=== PATIENT | female | born 1960 | race Caucasian/White ===

== ENCOUNTER 2020-08-09 10:35 | Outpatient (REF) | payer OTHER, SELFPAY | END 2020-08-09 10:36 | disposition home or self-care (01) | LOC: HO.LAB 10:35 | PROVIDERS: PCP Internal Medicine; Visit Provider Internal Medicine | DX: Z20.828 Contact with and (suspected) exposure to other viral communicable diseases (principal) | CPT/HCPCS: C9803; U0003 ==

== ENCOUNTER 2021-06-12 07:54 | Outpatient (REF) | payer OTHER, SELFPAY ==
--- NOTE | ~2021-06-12 | MM_ITS ---
EXAMINATION: MM SCREENING DIGITAL BREAST TOMOSYNTHESIS, BILATERAL CLINICAL INFORMATION: Screening. Asymptomatic. The lifetime risk of breast cancer based on the Tyrer-Cuzick Model is 13.8%. COMPARISON: Mammography: December 16, 2018 and studies dating back to August 12, 2012 TECHNIQUE: Digital breast tomosynthesis is performed in both the craniocaudal and mediolateral oblique views along with computer-aided detection (CAD). Synthesized 2D images are generated from the tomosynthesis. FINDINGS: The breasts are almost entirely fatty (ACR BI-RADS breast composition Category a). There are no significant masses, abnormal calcifications, or other abnormalities. MM/MM tomosynthesis screening BI IMPRESSION: There are no significant changes from prior study. ASSESSMENT: BI-RADS 1: Negative RECOMMENDATION: Routine annual mammography screening. This patient's information was entered into a reminder system with a target due date for their next mammogram.
== END 2021-06-12 07:55 | disposition home or self-care (01) ==
LOC: HO.MAMMO 07:54
PROVIDERS: PCP Internal Medicine; Visit Provider Internal Medicine
DX: Z12.31 Encounter for screening mammogram for malignant neoplasm of breast (principal)
CPT/HCPCS: 77063; 77067

== ENCOUNTER 2021-06-22 09:16 | Outpatient (REF) | payer OTHER, SELFPAY ==
--- NOTE | ~2021-06-22 | XR_ITS ---
EXAMINATION: XR PELVIS CLINICAL INFORMATION: Pain. COMPARISON: None. TECHNIQUE: AP view of the pelvis. FINDINGS: No acute fracture or dislocation. Mild right hip joint space narrowing with tiny marginal osteophytes. No osseous erosion. Dystrophic calcification adjacent to the left femoral neck measuring up to 2.5 cm. XR/XR pelvis 1-2V IMPRESSION: No acute fracture or dislocation. Minimal right hip arthrosis. Dystrophic calcification adjacent to the left hip joint.
== END 2021-06-22 09:17 | disposition home or self-care (01) ==
LOC: HO.HOSX 09:16
PROVIDERS: Visit Provider Orthopaedic Surgery
DX: M70.61 Trochanteric bursitis, right hip (principal); M70.62 Trochanteric bursitis, left hip
CPT/HCPCS: 20610; 72170; J1100

== ENCOUNTER 2021-07-13 10:38 | Emergency (ER) | payer OTHER, SELFPAY ==
[2021-07-13 10:57] VITALS: BP 155/95; PULSE 74; RESP 18; TEMP 36.7; O2SAT 97; BMI 48.1
[2021-07-13 11:15] LABS: Glucose, Whole Blood 348 mg/dL (60-115)
--- NOTE | 2021-07-13 12:10 | ED.GENADULT ---
HPI - General Adult General Chief complaint: General Medical Stated complaint: hbs, nausea, vomiting Time Seen by Provider: 07/13/21 11:09 Source: patient Mode of arrival: ambulatory Limitations: no limitations History of Present Illness HPI narrative: patient with vomiting and diaphoresis. patient with visual changes. Recent dry mouth. patient found to have a FS 328. Onset (ago): day(s) Radiation: non-radiation Severity: mild Relieving factors: none Exacerbating factors: none Associated symptoms: weakness Related Data Home Medications Medication Instructions Recorded Confirmed acetaminophen 325 mg tablet 650 mg PO Q4H PRN 07/13/21 07/13/21 diclofenac sodium 75 mg 1 tab PO BID 07/13/21 07/13/21 tablet,delayed release furosemide 20 mg tablet 20 mg PO DAILY PRN 07/13/21 07/13/21 venlafaxine 225 mg tablet,extended 1 tab PO DAILY 07/13/21 07/13/21 release 24 hr zolpidem 5 mg tablet 5 mg PO BEDTIME PRN 07/13/21 07/13/21 Previous Rx's Medication Instructions Recorded metformin 500 mg tablet 500 mg PO BID #20 tab 07/13/21 Allergies Allergy/AdvReac Type Severity Reaction Status Date / Time Sulfa (Sulfonamide Allergy Unknown HIVES Verified 07/13/21 10:56 Antibiotics) Review of Systems Constitutional: Constitutional: Reports no additional constitutional complaints Eyes: Eyes: Reports no additional eye complaints ENT: Denies dizziness Cardiovascular: Cardiovascular: Reports no additional cardiovascular complaints Respiratory: Respiratory: Reports as per HPI Gastrointestinal: Gastrointestinal: Reports no additional gastrointestinal complaints Genitourinary: Genitourinary: Reports no additional female genitourinary complaints Musculoskeletal: Musculoskeletal: Reports no additional musculoskeletal complaints Integumentary/Breasts: Skin/Breast: Denies rash Neurologic: Reports system reviewed and no additional complaints, except as documented, Denies dizziness and Denies Sensory deficit (Neuro) Psychiatric: Psychiatric: Denies anxiety PMFSH Past Medical History Medical History Depression GERD (gastroesophageal reflux disease) HTN (hypertension) Obesity Obstructive sleep apnea Surgical History H/O left knee surgery History of cholecystectomy Social History Social History Alcohol intake: unknown Patient Tobacco Use Status: Never used Tobacco Use of substances other than those prescribed or required for medical reasons: No Advance Directives: No Advance Directives Information Provided: Yes Patient : No 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 Vital Signs: Vital Signs: Last Vital Signs Temp 98.0 F 07/13/21 10:57 Pulse 72 07/13/21 14:11 Resp 18 07/13/21 14:11 BP 146/85 H 07/13/21 14:11 Pulse Ox 97 07/13/21 14:11 Body Mass Index 48.1 Const: General: healthy appearing Nutritional Appearance: obese Orientation/consciousness: oriented to person and patient oriented x3 Limitations: no limitations HENMT: Head: Yes normal to inspection Ears: external ears normal General nose exam: Normal external nose present Mouth: Normal oral and palatal mucosa present and oropharynx normal Throat: Yes posterior oropharynx normal Eyes: General: appearance normal, both eyes and all related structures Neck: Other: supple Neck: Yes normal visual inspection Chest: Chest palpation & inspection: normal inspection of the chest Resp: Auscultation: clear to auscultation bilaterally Cardio: Jugular venous distension: no JVD Rate: regular rate Rhythm: regular rhythm Heart sounds: S1 normal heart sound present and S2 normal heart sound present GI: Inspection: Yes normal to inspection Palpation (GI): Soft to palpation, nontender and No hepatosplenomegaly present Auscultation: normal bowel sounds : General: Yes no CVA tenderness Back/Spine/Pelvis: Back: no CVA tenderness Skin: General skin exam: no rashes or lesions noted Neuro: General: oriented to person and patient oriented x3 Cranial nerves: Yes CN's II-XII intact bilaterally Motor exam (neuro): 5/5 motor strength present throughout Sensory Exam: No Sensory deficit (Neuro) Extrem: General: Yes normal to inspection Psych: Appearance: grossly normal Course Reevaluation(s) Reevaluation #1: Discussed with Dr. Jaden finney dc on glucophage twice a day. patient is otherwise stable Time: 15:16 Medical Decision Making Lab Data Result diagrams: 07/13/21 12:37 07/13/21 12:58 Labs: Lab Results 07/13/21 07/13/21 07/13/21 Range/Units 11:10 12:37 12:37 WBC 4.5 L (4.8-10.8) X10*3/uL RBC 5.32 (4.20-5.50) X10*6/uL Hgb 15.0 (12.0-16.0) g/dl Hct 45.2 (37-47) % MCV 85.0 (80-98) fL MCH 28.2 (27.0-33.0) pg MCHC 33.2 (31.0-35.0) g/dl RDW 13.2 (11.0-16.0) % Plt Count 253 (160-400) X10*3/uL MPV 9.0 L (9.4-12.3) fL Immature Gran % (Auto) 0.2 (0.0-0.4) % Neut % (Auto) 58.3 (45-73) % Lymph % (Auto) 34.0 (20-40) % [place] % (Auto) 5.8 (2-11) % Eos % (Auto) 1.3 (0-4) % Baso % (Auto) 0.4 (0-2) % Lymph # (Auto) 1.5 (1.2-4.9) X10*3/uL [place] # (Auto) 0.3 (0.1-1.2) X10*3/uL Eos # (Auto) 0.1 (0.0-0.4) X10*3/uL Baso # (Auto) 0.0 (0.0-0.2) X10*3/uL Abs Immat Gran (auto) 0.01 (0.00-0.03) X10*3/uL Absolute Neuts (auto) 2.6 (2.0-8.3) X10*3/uL Absolute Nucleated RBC 0.000 (0.0-0.012) X10*3/uL Nucleated RBC % (auto) 0.0 (0.0-0.2) /100WBC Sodium (135-145) mmol/L Potassium (3.3-5.1) mmol/L Chloride (96-108) mmol/L Carbon Dioxide (22-29) mmol/L Anion Gap (12-20) BUN (9-16) mg/dL Creatinine (0.5-1.4) mg/dL Estim Creat Clear Calc Estimated GFR POC Glucose 348 H (60-115) mg/dL Random Glucose (60-115) mg/dL Calcium (8.4-10.2) mg/dL Total Bilirubin (0.0-1.0) mg/dL Direct Bilirubin (0.0-0.5) mg/dL AST (5-31) U/L ALT (0-31) U/L Alkaline Phosphatase (39-117) U/L Total Protein (6.5-8.0) g/dL Albumin (3.5-5.0) g/dL Urine Color YELLOW Urine Appearance CLEAR Urine pH 6.0 (5.0-8.0) Ur Specific [place] 1.025 (1.005-1.025) Urine Protein NEG (NEG-TRACE) MG/DL Urine Glucose (UA) >=1000 H (NEG) MG/DL Urine Ketones 40 (NEG) MG/DL Urine Blood NEG (NEG) Urine Nitrite NEG (NEG) Ur Leukocyte Esterase NEG (NEG) Urine RBC 0 (0) /HPF Urine WBC 0-2 (0-4) /HPF Ur Squamous Epith Cells TRACE /LPF Urine Bacteria TRACE /LPF 07/13/21 07/13/21 Range/Units 12:58 14:08 WBC (4.8-10.8) X10*3/uL RBC (4.20-5.50) X10*6/uL Hgb (12.0-16.0) g/dl Hct (37-47) % MCV (80-98) fL MCH (27.0-33.0) pg MCHC (31.0-35.0) g/dl RDW (11.0-16.0) % Plt Count (160-400) X10*3/uL MPV (9.4-12.3) fL Immature Gran % (Auto) (0.0-0.4) % Neut % (Auto) (45-73) % Lymph % (Auto) (20-40) % [place] % (Auto) (2-11) % Eos % (Auto) (0-4) % Baso % (Auto) (0-2) % Lymph # (Auto) (1.2-4.9) X10*3/uL [place] # (Auto) (0.1-1.2) X10*3/uL Eos # (Auto) (0.0-0.4) X10*3/uL Baso # (Auto) (0.0-0.2) X10*3/uL Abs Immat Gran (auto) (0.00-0.03) X10*3/uL Absolute Neuts (auto) (2.0-8.3) X10*3/uL Absolute Nucleated RBC (0.0-0.012) X10*3/uL Nucleated RBC % (auto) (0.0-0.2) /100WBC Sodium 140 (135-145) mmol/L Potassium 4.1 (3.3-5.1) mmol/L Chloride 104 (96-108) mmol/L Carbon Dioxide 27 (22-29) mmol/L Anion Gap 13 (12-20) BUN 6 L (9-16) mg/dL Creatinine 0.83 (0.5-1.4) mg/dL Estim Creat Clear Calc 97.6 Estimated GFR > 60 POC Glucose 251 H (60-115) mg/dL Random Glucose 352 H* (60-115) mg/dL Calcium 9.4 (8.4-10.2) mg/dL Total Bilirubin 0.8 (0.0-1.0) mg/dL Direct Bilirubin 0.3 (0.0-0.5) mg/dL AST 46 H (5-31) U/L ALT 85 H (0-31) U/L Alkaline Phosphatase 143 H (39-117) U/L Total Protein 6.2 L (6.5-8.0) g/dL Albumin 4.1 (3.5-5.0) g/dL Urine Color Urine Appearance Urine pH (5.0-8.0) Ur Specific [place] (1.005-1.025) Urine Protein (NEG-TRACE) MG/DL Urine Glucose (UA) (NEG) MG/DL Urine Ketones (NEG) MG/DL Urine Blood (NEG) Urine Nitrite (NEG) Ur Leukocyte Esterase (NEG) Urine RBC (0) /HPF Urine WBC (0-4) /HPF Ur Squamous Epith Cells /LPF Urine Bacteria /LPF Discharge Plan Discharge Clinical Impression: Acute hyperglycemia Patient Disposition: Home, Self-Care Instructions: Diabetic Hyperglycemia (ED) Prescriptions: New metformin 500 mg tablet 500 mg PO BID Qty: 20 RF: 0 No Action diclofenac sodium 75 mg tablet,delayed release (DR/EC) 1 tab PO BID RF: 0 furosemide 20 mg Tablet 20 mg PO DAILY PRN (Reason: Edema) RF: 0 venlafaxine 225 mg tablet extended release 24hr 1 tab PO DAILY RF: 0 acetaminophen 325 mg Tablet 650 mg PO Q4H PRN (Reason: Pain) RF: 0 zolpidem 5 mg tablet 5 mg PO BEDTIME PRN (Reason: Insomnia) RF: 0 Referrals: Kvng Colón MD, DO [Primary Care Provider] - 1 week
[2021-07-13 12:40] VITALS: BP 139/75; PULSE 71; RESP 18; O2SAT 97
[2021-07-13 12:42] LABS: MANUAL DIFF FLAG NO
[2021-07-13 12:46] LABS: Appearance Urine CLEAR; Color Urine YELLOW; Glucose Urine UA >=1000 MG/DL (NEG); Leukocyte Esterase Urine NEG (NEG); Nitrite Urine NEG (NEG); Specific Gravity - Urine 1.025 (1.005-1.025); Urine Blood NEG (NEG); Urine Ketones 40 MG/DL (NEG); Urine Protein NEG (NEG-TRACE)
[2021-07-13 12:49] LABS: Basophils Percent Auto 0.4 % (0-2); Eosinophils Absolute Auto 0.1 X10*3/uL (0.0-0.4); Eosinophils Percent Auto 1.3 % (0-4); Hematocrit 45.2 % (37-47); Imm Gran Abs Auto 0.01 X10*3/uL (0.00-0.03); Imm Gran Pct Auto 0.2 % (0.0-0.4); Lymphocytes Absolute Auto 1.5 X10*3/uL (1.2-4.9); Mean Corpuscular HGB Conc 33.2 g/dl (31.0-35.0); Mean Corpuscular Hemoglobin 28.2 pg (27.0-33.0); Monocytes Absolute Auto 0.3 X10*3/uL (0.1-1.2); Monocytes Percent Auto 5.8 % (2-11); Neutrophils Absolute Auto 2.6 X10*3/uL (2.0-8.3); Neutrophils Percent Auto 58.3 % (45-73); Platelet Count 253 X10*3/uL (160-400); Red Blood Count 5.32 X10*6/uL (4.20-5.50); Red Cell Distribution Width 13.2 % (11.0-16.0); White Blood Count 4.5 X10*3/uL (4.8-10.8)
[2021-07-13] MEDS: Insulin Lispro 100 UNIT/ML 3 ML VIAL 6 UNIT SUBCUT (12:52)
[2021-07-13] MEDS: 0.9 % Sodium Chloride 1,000 ML 999 ML IVCONT ×2 (12:52→14:36)
[2021-07-13 13:04] LABS: Squamous Epithelial Cell Urine TRACE /LPF
[2021-07-13 13:05] LABS: Bacteria Urine TRACE /LPF; RBC Urine 0 /HPF (0); WBC Urine 0-2 /HPF (0-4)
--- NOTE | 2021-07-13 13:19 | PHA.MEDREC ---
Pharmacy Consult ? Medication Reconciliation Pharmacy has completed the medication reconciliation. Patient reports using Lasix as needed however there is no claim history for Lasix. Prescription may be old. Susan Lama, OtiliaD
[2021-07-13 13:29] LABS: Alanine Aminotransferase 85 U/L (0-31); Albumin Level 4.1 g/dL (3.5-5.0); Alkaline Phosphatase 143 U/L (39-117); Anion Gap 13 (12-20); Aspartate Amino Transferase 46 U/L (5-31); Bilirubin Direct 0.3 mg/dL (0.0-0.5); Bilirubin Total 0.8 mg/dL (0.0-1.0); Blood Urea Nitrogen 6 mg/dL (9-16); Calcium 9.4 mg/dL (8.4-10.2); Carbon Dioxide 27 mmol/L (22-29); Chloride 104 mmol/L (96-108); Creatinine Clr Calc Pharmacy 97.6; Estimated Glomerular Filt Rate > 60; Glucose Random 352 mg/dL (60-115); Potassium 4.1 mmol/L (3.3-5.1); Sodium 140 mmol/L (135-145); Total Protein 6.2 g/dL (6.5-8.0)
[2021-07-13 14:11] VITALS: BP 146/85; PULSE 72; RESP 18; O2SAT 97
[2021-07-13 14:15] LABS: Glucose, Whole Blood 251 mg/dL (60-115)
[2021-07-13 15:38] VITALS: BP 159/87; PULSE 70; RESP 18; TEMP 36.7; O2SAT 96
== END 2021-07-13 16:03 | disposition home or self-care (01) ==
PROVIDERS: Emergency Provider Emergency Medicine; PCP Internal Medicine
DX: E11.65 Type 2 diabetes mellitus with hyperglycemia (principal); Z79.899 Other long term (current) drug therapy; Z79.84 Long term (current) use of oral hypoglycemic drugs
CPT/HCPCS: 36415; 80048; 80076; 81001; 82947; 85025; 96360; 99284

== ENCOUNTER 2021-08-21 07:41 | Outpatient (REF) | payer OTHER, SELFPAY ==
[2021-08-21 07:50] LABS: MANUAL DIFF FLAG NO
[2021-08-21 07:57] LABS: Basophils Percent Auto 0.2 % (0-2); Eosinophils Absolute Auto 0.1 X10*3/uL (0.0-0.4); Eosinophils Percent Auto 2.4 % (0-4); Hemoglobin 14.2 g/dl (12.0-16.0); Lymphocytes Absolute Auto 1.5 X10*3/uL (1.2-4.9); Lymphocytes Percent Auto 35.8 % (20-40); Mean Corpuscular HGB Conc 32.3 g/dl (31.0-35.0); Mean Corpuscular Volume 86.6 fL (80.0-98.0); Monocytes Absolute Auto 0.3 X10*3/uL (0.1-1.2); Monocytes Percent Auto 7.9 % (2-11); Neutrophils Absolute Auto 2.3 x10*3/uL (2.0-8.3); Neutrophils Percent Auto 53.7 % (45-73); Platelet Count 289 X10*3/uL (160-400); Red Blood Count 5.08 X10*6/uL (4.20-5.50); Red Cell Distribution Width 13.9 % (11.0-16.0); White Blood Count 4.2 X10*3/uL (4.8-10.8)
[2021-08-21 08:41] LABS: Appearance Urine CLOUDY; Color Urine YELLOW; Glucose Urine UA NEG (NEG); Leukocyte Esterase Urine 2+ (NEG); Nitrite Urine NEG (NEG); PH 5.5 (5.0-8.0); Specific Gravity - Urine >= 1.030 (1.005-1.025); Urine Blood NEG (NEG); Urine Ketones 5 MG/DL (NEG); Urine Protein TRACE MG/DL (NEG-TRACE)
[2021-08-21 08:51] LABS: Bacteria Urine 2+ /LPF; RBC Urine 0 /HPF (0)
[2021-08-21 09:06] LABS: Alanine Aminotransferase 73 U/L (0-31); Albumin Level 4.2 g/dL (3.5-5.0); Alkaline Phosphatase 109 U/L (39-117); Anion Gap 13 (12-20); Aspartate Amino Transferase 34 U/L (5-31); Bilirubin Total 0.7 mg/dL (0.0-1.0); Blood Urea Nitrogen 11 mg/dL (9-16); Calcium 9.4 mg/dL (8.4-10.2); Carbon Dioxide 24 mmol/L (22-29); Chloride 108 mmol/L (96-108); Cholesterol 149 mg/dL; Estimated Glomerular Filt Rate > 60; Glucose Fasting 143 mg/dL (60-99); HDL Cholesterol 36 mg/dL; LDL Cholesterol Calculated 94 mg/dl; Potassium 4.1 mmol/L (3.3-5.1); Sodium 141 mmol/L (135-145); Total Protein 6.3 g/dL (6.5-8.0); Triglycerides 95 mg/dL
[2021-08-21 09:12] LABS: Microalbum/Creatinine Ratio Ur 10.9 ug/mg cr
[2021-08-21 09:17] LABS: Estimated Average Glucose 223 mg/dL; Hemoglobin A1c % 9.4 %
== END 2021-08-21 07:42 | disposition home or self-care (01) ==
LOC: HO.LAB 07:41
PROVIDERS: PCP Internal Medicine; Visit Provider Internal Medicine
DX: E11.9 Type 2 diabetes mellitus without complications (principal); I10 Essential (primary) hypertension
CPT/HCPCS: 36415; 80053; 80061; 81001; 81003; 82043; 83036; 85025

== ENCOUNTER 2021-10-19 13:31 | Emergency (ER) | payer OTHER, SELFPAY ==
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
[2021-10-19 13:39] VITALS: BP 140/70; BP 171/90; PULSE 90; PULSE 92; RESP 18; TEMP 36.8; O2SAT 95; O2SAT 98; BMI 41.4
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
[2021-10-19 14:31] VITALS: BP 137/81; PULSE 82; RESP 14; TEMP 37.1; O2SAT 95
[2021-10-19] MEDS: Ketorolac Tromethamine 60 MG/2 ML VIAL IM (15:59)
[2021-10-19] MEDS: Cyclobenzaprine HCl 10 MG TABLET PO (15:59)
== END 2021-10-19 17:21 | disposition home or self-care (01) ==
PROVIDERS: Emergency Provider Emergency Medicine; PCP Internal Medicine
DX: S39.012A Strain of muscle, fascia and tendon of lower back, initial encounter (principal); S13.4XXA Sprain of ligaments of cervical spine, initial encounter; M54.2 Cervicalgia; M54.6 Pain in thoracic spine; V73.5XXA Driver of bus injured in collision with car, pick-up truck or van in traffic accident, initial encounter; Y93.9 Activity, unspecified; Y92.410 Unspecified street and highway as the place of occurrence of the external cause; Y99.9 Unspecified external cause status; Z79.899 Other long term (current) drug therapy
CPT/HCPCS: 72070; 72100; 72125; 96372; 99284; J1885

== ENCOUNTER 2021-10-22 09:23 | Outpatient (REF) | payer OTHER, SELFPAY ==
[2021-10-22 10:58] LABS: Alanine Aminotransferase 43 U/L (0-31); Albumin Level 4.1 g/dL (3.5-5.0); Alkaline Phosphatase 105 U/L (39-117); Anion Gap 12 (12-20); Aspartate Amino Transferase 30 U/L (5-31); Bilirubin Total 0.6 mg/dL (0.0-1.0); Blood Urea Nitrogen 10 mg/dL (9-16); Calcium 9.5 mg/dL (8.4-10.2); Carbon Dioxide 27 mmol/L (22-29); Chloride 107 mmol/L (96-108); Cholesterol 135 mg/dL; Estimated Glomerular Filt Rate > 60; Glucose Fasting 134 mg/dL (60-99); HDL Cholesterol 45 mg/dL; LDL Cholesterol Calculated 71 mg/dl; Potassium 4.2 mmol/L (3.3-5.1); Sodium 142 mmol/L (135-145); Total Protein 6.5 g/dL (6.5-8.0); Triglycerides 97 mg/dL
[2021-10-22 11:37] LABS: Estimated Average Glucose 131 mg/dL; Hemoglobin A1c % 6.2 %
== END 2021-10-22 09:24 | disposition home or self-care (01) ==
LOC: HO.LAB 09:23
PROVIDERS: PCP Internal Medicine; Visit Provider Internal Medicine
DX: E11.9 Type 2 diabetes mellitus without complications (principal)
CPT/HCPCS: 36415; 80053; 80061; 83036

== ENCOUNTER 2022-04-22 17:05 | Outpatient (REF) | payer OTHER, SELFPAY ==
[2022-04-23 05:20] LABS: Estimated Average Glucose 137 mg/dL; Hemoglobin A1c % 6.4 %
== END 2022-04-22 17:06 | disposition home or self-care (01) ==
LOC: HO.LABR 17:05
PROVIDERS: PCP Internal Medicine; Visit Provider Internal Medicine Endocrinology, Diabetes & Metabolism
DX: E11.8 Type 2 diabetes mellitus with unspecified complications (principal)
CPT/HCPCS: 36415; 83036

== ENCOUNTER 2022-06-19 08:17 | Outpatient (REF) | payer OTHER, SELFPAY ==
--- NOTE | ~2022-06-19 | MM_ITS ---
EXAMINATION: MM SCREENING DIGITAL BREAST TOMOSYNTHESIS, BILATERAL CLINICAL INFORMATION: Screening. Asymptomatic. The lifetime risk of breast cancer based on the Tyrer-Cuzick Model is 17%. COMPARISON: Mammography: 06/12/2021, 12/16/2018, 10/15/2017 TECHNIQUE: Digital breast tomosynthesis is performed in both the craniocaudal and mediolateral oblique views along with computer-aided detection (CAD). Synthesized 2D images are generated from the tomosynthesis. FINDINGS: The breasts are almost entirely fatty (ACR BI-RADS breast composition Category a). There are no significant masses, abnormal calcifications, or other abnormalities. Background stromal markings are stable. There is no developing density or architectural abnormality. The axilla and skin contours are unremarkable. MM/MM tomosynthesis screening BI IMPRESSION: No mammographic evidence of malignancy. ASSESSMENT: BI-RADS 1: Negative RECOMMENDATION: Routine annual mammography screening. This patient's information was entered into a reminder system with a target due date for their next mammogram.
== END 2022-06-19 08:18 | disposition home or self-care (01) ==
LOC: HO.MAMMO 08:17
PROVIDERS: PCP Internal Medicine; Visit Provider Internal Medicine
DX: Z12.31 Encounter for screening mammogram for malignant neoplasm of breast (principal)
CPT/HCPCS: 77063; 77067

== ENCOUNTER 2023-04-07 10:11 | Outpatient (REF) | payer OTHER, SELFPAY ==
[2023-04-07 10:38] LABS: MANUAL DIFF FLAG NO
[2023-04-07 11:28] LABS: Basophils Percent Auto 0.4 % (0-2); Eosinophils Absolute Auto 0.1 X10*3/uL (0.0-0.4); Eosinophils Percent Auto 1.7 % (0-4); Hematocrit 42.9 % (37.0-47.0); Hemoglobin 13.9 g/dl (12.0-16.0); Imm Gran Abs Auto 0.02 X10*3/uL (0.00-0.03); Imm Gran Pct Auto 0.4 % (0.0-0.4); Lymphocytes Absolute Auto 1.5 X10*3/uL (1.2-4.9); Lymphocytes Percent Auto 28.6 % (20-40); Mean Corpuscular HGB Conc 32.4 g/dl (31.0-35.0); Mean Corpuscular Hemoglobin 27.9 pg (27.0-33.0); Mean Corpuscular Volume 86.1 fL (80.0-98.0); Mean Platelet Volume 9.3 fL (9.4-12.3); Monocytes Absolute Auto 0.3 X10*3/uL (0.1-1.2); Monocytes Percent Auto 5.9 % (2-11); Neutrophils Absolute Auto 3.4 x10*3/uL (2.0-8.3); Platelet Count 271 X10*3/uL (160-400); Red Blood Count 4.98 X10*6/uL (4.20-5.50); Red Cell Distribution Width 13.4 % (11.0-16.0); White Blood Count 5.4 X10*3/uL (4.8-10.8)
[2023-04-07 12:09] LABS: Appearance Urine Cloudy; Color Urine Yellow; Glucose Urine UA Negative (Negative); Leukocyte Esterase Urine Large (3+) (Negative); Nitrite Urine Negative (Negative); PH 5.5 (5.0-9.0); UMIC TRIGGER UA YES; Urine Blood Negative (Negative); Urine Ketones Negative (Negative); Urine Protein Trace mg/dL (Neg-Trace)
[2023-04-07 12:12] LABS: Bacteria Urine 2+ (None Seen); Hyaline Casts Urine 0-2 /LPF (0-2); RBC Urine 0-2 /HPF (0-2); Squamous Epithelial Cell Urine >20 /HPF (0-2); WBC Urine >50 /HPF (0-5)
[2023-04-07 12:41] LABS: Creatinine Urine 137.46 mg/dL; Microalbum/Creatinine Ratio Ur 16.7 ug/mg cr
[2023-04-07 13:04] LABS: Anion Gap 16 (12-20); Blood Urea Nitrogen 12 mg/dL (9-16); Calcium 9.6 mg/dL (8.4-10.2); Carbon Dioxide 26 mmol/L (22-29); Chloride 104 mmol/L (96-108); Cholesterol 193 mg/dL; Estimated Glomerular Filt Rate > 60; Glucose Fasting 230 mg/dL (60-99); HDL Cholesterol 45 mg/dL; LDL Cholesterol Calculated 120 mg/dl; Potassium 4.6 mmol/L (3.3-5.1); Sodium 141 mmol/L (135-145); Triglycerides 141 mg/dL
[2023-04-07 13:21] LABS: Thyroid Stimulating Hormone 1.87 uIU/mL (0.32-4.0); Vitamin D 25-OH Total 23.6 ng/mL (>30)
[2023-04-08 05:28] LABS: Estimated Average Glucose 200 mg/dL; Hemoglobin A1c % 8.6 %
== END 2023-04-07 10:12 | disposition home or self-care (01) ==
LOC: HO.LAB 10:11
PROVIDERS: PCP Internal Medicine; Visit Provider Internal Medicine
DX: E11.9 Type 2 diabetes mellitus without complications (principal); G47.33 Obstructive sleep apnea (adult) (pediatric); K21.9 Gastro-esophageal reflux disease without esophagitis; I10 Essential (primary) hypertension; M15.0 Primary generalized (osteo)arthritis; F32.9 Major depressive disorder, single episode, unspecified; E55.9 Vitamin D deficiency, unspecified
CPT/HCPCS: 36415; 80048; 80061; 81001; 82043; 82306; 83036; 84443; 85025

== ENCOUNTER 2023-08-01 08:48 | Outpatient (REF) | payer OTHER, SELFPAY ==
--- NOTE | ~2023-08-01 | MM_ITS ---
EXAMINATION: MM SCREENING DIGITAL BREAST TOMOSYNTHESIS, BILATERAL CLINICAL INFORMATION: Screening. Asymptomatic. COMPARISON: Mammography: 06/19/2022, 06/12/2021, 12/16/2018, 10/15/2017, and dating back to 2011. TECHNIQUE: Digital breast tomosynthesis is performed in both the craniocaudal and mediolateral oblique views along with computer-aided detection (CAD). Synthesized 2D images are generated from the tomosynthesis. FINDINGS: The breasts are almost entirely fatty (ACR BI-RADS breast composition Category a). There are no suspicious masses, suspicious grouped calcifications, or areas of architectural distortion in either breast. The parenchymal pattern is stable from prior exams. MM/MM tomosynthesis screening BI IMPRESSION: No mammographic evidence of malignancy. ASSESSMENT: BI-RADS BI-RADS 1 - Negative RECOMMENDATION: Routine annual mammography screening. 1 year F/U This examination should not preclude the clinical evaluation of a suspicious palpable abnormality. This patient's information was entered into a reminder system with a target due date for their next mammogram.
== END 2023-08-01 08:49 | disposition home or self-care (01) ==
LOC: HO.MAMMO 08:48
PROVIDERS: Visit Provider Internal Medicine
DX: Z12.31 Encounter for screening mammogram for malignant neoplasm of breast (principal)
CPT/HCPCS: 77063; 77067

== ENCOUNTER → 2023-08-01 09:00 | Outpatient (BNV) | payer OTHER, SELFPAY | PROVIDERS: Visit Provider Radiology Diagnostic Radiology | DX: Z12.31 Encounter for screening mammogram for malignant neoplasm of breast (principal) | CPT/HCPCS: 77063; 77067 ==

== ENCOUNTER 2023-09-19 09:22 | Outpatient (REF) | payer OTHER, SELFPAY ==
[2023-09-19 12:04] LABS: Estimated Average Glucose 146 mg/dL; Hemoglobin A1c % 6.7 % (<6.0)
[2023-09-19 12:10] LABS: Anion Gap 13 (12-20); Blood Urea Nitrogen 16 mg/dL (9-16); Calcium 9.1 mg/dL (8.4-10.2); Carbon Dioxide 24 mmol/L (22-29); Chloride 107 mmol/L (96-108); Cholesterol 134 mg/dL (<200); Estimated Glomerular Filt Rate > 60; Glucose Fasting 159 mg/dL (60-99); HDL Cholesterol 48 mg/dL (>40); LDL Cholesterol Calculated 66 mg/dL (<100); Potassium 4.2 mmol/L (3.3-5.1); Sodium 140 mmol/L (135-145); Triglycerides 103 mg/dL (<150)
== END 2023-09-19 09:23 | disposition home or self-care (01) ==
LOC: HO.HMGCLDS 09:22
PROVIDERS: PCP Internal Medicine; Visit Provider Internal Medicine
DX: E11.9 Type 2 diabetes mellitus without complications (principal)
CPT/HCPCS: 36415; 80048; 80061; 83036

== ENCOUNTER 2023-12-04 17:18 | Emergency (ER) | payer OTHER, SELFPAY ==
--- NOTE | ~2023-12-04 | CT_ITS ---
EXAMINATION: CT ABDOMEN AND PELVIS WITHOUT CONTRAST CLINICAL INFORMATION: Abdominal pain COMPARISON: CT abdomen pelvis on 03/28/2010 TECHNIQUE: Multidetector volumetric imaging was performed from the superior aspect of the liver through the pubic symphysis. Sagittal and coronal reformatted images were obtained on the technologist's workstation. This CT examination was performed using dose optimization techniques as appropriate, variously including the following: *Automated exposure control *Adjustment of mA and/or kV according to patient size (this includes techniques or standardized protocols for targeted exams where dose is matched to indication/reason for exam; i.e. extremities or head) *Use of iterative reconstruction technique DLP: 1120 mGy-cm FINDINGS: LUNG BASES: The visualized lung bases are unremarkable. LIVER, GALLBLADDER, AND BILIARY TREE: The liver is normal in size, shape, and attenuation. No focal hepatic lesion or biliary ductal dilatation is present. Prior cholecystectomy. PANCREAS: Unremarkable. SPLEEN: Unremarkable. ADRENAL GLANDS: Unremarkable. KIDNEYS AND URETERS: The bilateral kidneys are normal in size. There is no left hydronephrosis or renal calculi. There is mild left hydronephrosis and proximal hydroureter secondary to 2 adjacent obstructing calculi in the right proximal ureter measuring 0.3 and 0.4 cm. There is perinephric stranding surrounding the right kidney. BLADDER: Unremarkable. GASTROINTESTINAL TRACT: Moderate hiatal hernia. Small large bowel are otherwise normal in caliber. Colonic diverticulosis is noted. ABDOMINAL WALL: No significant hernia is appreciated. LYMPH NODES: Normal. VASCULAR: Mild atherosclerotic disease. PELVIC VISCERA: Unremarkable. OSSEOUS STRUCTURES: Unremarkable. CT/CT abdomen pelvis wo IV con IMPRESSION: 1. Mild right hydronephrosis and proximal hydroureter secondary to 2 adjacent obstructing calculi in the right proximal ureter measuring 0.3 and 0.4 cm. 2. Moderate hiatal hernia. Fleischner guidelines were followed.
[2023-12-04 18:10] VITALS: BP 155/96; PULSE 109; RESP 18; TEMP 37.1; O2SAT 98; BMI 48.7
--- NOTE | 2023-12-04 18:16 | ED.GENADULT ---
HPI - General Adult General Chief complaint: Abdominal Pain Stated complaint: vomiting, severe R abd pain to back Time Seen by Provider: 12/04/23 20:18 Related Data Home Medications Medication Instructions Recorded Confirmed acetaminophen 325 mg tablet 650 mg PO Q4H PRN Pain 07/13/21 07/13/21 diclofenac sodium 75 mg 1 tab PO BID 07/13/21 07/13/21 tablet,delayed release furosemide 20 mg tablet 20 mg PO DAILY PRN Edema 07/13/21 07/13/21 venlafaxine 225 mg tablet,extended 1 tab PO DAILY 07/13/21 07/13/21 release 24 hr zolpidem 5 mg tablet 5 mg PO BEDTIME PRN Insomnia 07/13/21 07/13/21 Previous Rx's Medication Instructions Recorded metformin 500 mg tablet 500 mg PO BID #20 tabs 07/13/21 ondansetron HCl 4 mg tablet 4 mg PO Q8H PRN nausea and 07/13/21 (Zofran) vomiting #10 tabs cyclobenzaprine 10 mg tablet 10 mg PO TID #20 tabs 10/19/21 Allergies Allergy/AdvReac Type Severity Reaction Status Date / Time Sulfa (Sulfonamide Allergy Unknown HIVES Verified 12/04/23 18:17 Antibiotics) [facility] Past Medical History Medical History Diabetes Obesity GERD (gastroesophageal reflux disease) HTN (hypertension) Obstructive sleep apnea Depression Surgical History H/O left knee surgery History of cholecystectomy Social History Social History Alcohol intake: never Patient Tobacco Use Status: Never used Tobacco Smoked in Last 30 Days: No Advance Directives: No Advance Directives Information Provided: No 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 62-year-old female history of greater trochanteric bursitis, cholecystectomy presenting with right-sided abdominal pain, nausea, vomiting that started approximately 230 today, has not eaten or drank since then. She is afraid it might be her appendix. Denies fevers, chills, headache, vision changes, dizziness, weakness, chest pain and shortness of breath. Plan labs, urine Reevaluation(s) Reevaluation #1: discussed with Dr. Corado the patient is looking much better given that and normal Cr normal WBC neg lactic acid toelrating PO can dc home on levofloxacin, flomax and return precautions Medications Administered Discontinued Medications Generic Name Dose Route Start Last Admin Trade Name Freq PRN Reason Stop Dose Admin Hydromorphone HCl 0.5 mg 12/04/23 20:16 12/04/23 20:40 Hydromorphone Hcl 0.5 Mg/0.5 Ml Syringe IVPUSH 12/04/23 20:17 0.5 mg ONCE ONE Administration Protocol Sodium Chloride 1,000 mls @ 999 mls/hr 12/04/23 20:30 12/04/23 21:45 Ns IV 12/04/23 21:30 Infused .Q1H1M YARI Infusion Ceftriaxone Sodium 1 gm/ 50 mls @ 100 mls/hr 12/04/23 20:17 12/04/23 21:45 Sodium Chloride IV 12/04/23 20:46 Infused ONCE ONE Infusion Ondansetron HCl 4 mg 12/04/23 20:16 12/04/23 20:40 Ondansetron Hcl 4 Mg/2 Ml Vial IVPUSH 12/04/23 20:17 4 mg ONCE ONE Administration Medical Decision Making Lab Data 12/04/23 18:42 12/04/23 18:42 Labs: Lab Results 12/04/23 12/04/23 Range/Units 18:42 20:32 WBC 7.8 (4.8-10.8) X10*3/uL RBC 4.65 (4.20-5.50) X10*6/uL Hgb 13.0 (12.0-16.0) g/dl Hct 40.5 (37.0-47.0) % MCV 87.1 (80.0-98.0) fL MCH 28.0 (27.0-33.0) pg MCHC 32.1 (31.0-35.0) g/dl RDW 14.1 (11.0-16.0) % Plt Count 394 D (160-400) X10*3/uL MPV 8.6 L (9.4-12.3) fL Immature Gran % (Auto) 0.4 (0.0-0.4) % Neut % (Auto) 82.0 H (45-73) % Lymph % (Auto) 12.6 L (20-40) % [place] % (Auto) 4.2 (2-11) % Eos % (Auto) 0.5 (0-4) % Baso % (Auto) 0.3 (0-2) % Lymph # (Auto) 1.0 L (1.2-4.9) X10*3/uL [place] # (Auto) 0.3 (0.1-1.2) X10*3/uL Eos # (Auto) 0.0 (0.0-0.4) X10*3/uL Baso # (Auto) 0.0 (0.0-0.2) X10*3/uL Abs Immat Gran (auto) 0.03 (0.00-0.03) X10*3/uL Absolute Neuts (auto) 6.4 (2.0-8.3) x10*3/uL Absolute Nucleated RBC 0.000 (0.0-0.012) X10*3/uL Nucleated RBC % (auto) 0.0 (0.0-0.2) /100WBC Sodium 144 (135-145) mmol/L Potassium 4.0 (3.3-5.1) mmol/L Chloride 109 H (96-108) mmol/L Carbon Dioxide 23 (22-29) mmol/L Anion Gap 16 (12-20) BUN 13 (9-16) mg/dL Creatinine 0.97 (0.5-1.4) mg/dL Estim Creat Clear Calc 79.1 Estimated GFR 59 Random Glucose 161 H (60-115) mg/dL Lactic Acid 1.5 (0.5-2.0) mmol/L Calcium 9.3 (8.4-10.2) mg/dL Total Bilirubin 0.4 (0.0-1.0) mg/dL AST 32 H (5-31) U/L ALT 33 H (0-31) U/L Alkaline Phosphatase 114 (39-117) U/L Total Protein 6.8 (6.5-8.0) g/dL Albumin 4.1 (3.5-5.0) g/dL Lipase 19 (8-78) U/L Urine Color Yellow Urine Appearance Cloudy Urine pH 5.5 (5.0-9.0) Ur Specific [place] 1.010 (1.005-1.025) Urine Protein Negative (Neg-Trace) mg/dL Urine Glucose (UA) Negative (Negative) mg/dL Urine Ketones Trace (Negative) mg/dL Urine Blood Large (3+) H (Negative) Urine Nitrite Negative (Negative) Ur Leukocyte Esterase Large (3+) H (Negative) Urine RBC 11-20 H (0-2) /HPF Urine WBC >50 H (0-5) /HPF Ur Squamous Epith Cells 6-10 (0-2) /HPF Urine Bacteria Trace (None Seen) Hyaline Casts 0-2 (0-2) /LPF Discharge Plan Discharge Clinical Impression: Abdominal pain, Urinary tract infection Patient Disposition: Still a Patient Prescriptions: No Action cyclobenzaprine 10 mg tablet 10 mg PO TID Qty: 20 0RF diclofenac sodium 75 mg tablet,delayed release (DR/EC) 1 tab PO BID furosemide 20 mg Tablet 20 mg PO DAILY PRN (Reason: Edema) venlafaxine 225 mg tablet extended release 24hr 1 tab PO DAILY acetaminophen 325 mg Tablet 650 mg PO Q4H PRN (Reason: Pain) zolpidem 5 mg tablet 5 mg PO BEDTIME PRN (Reason: Insomnia) metformin 500 mg tablet 500 mg PO BID Qty: 20 0RF ondansetron HCl [Zofran] 4 mg tablet 4 mg PO Q8H PRN (Reason: nausea and vomiting) Qty: 10 0RF
[2023-12-04 18:50] LABS: MANUAL DIFF FLAG NO
[2023-12-04 18:55] LABS: Appearance Urine Cloudy; Color Urine Yellow; Glucose Urine UA Negative (Negative); Leukocyte Esterase Urine Large (3+) (Negative); Nitrite Urine Negative (Negative); PH 5.5 (5.0-9.0); UMIC TRIGGER UACC YES; Urine Blood Large (3+) (Negative); Urine Ketones Trace mg/dL (Negative); Urine Protein Negative (Neg-Trace)
[2023-12-04 18:57] LABS: Bacteria Urine Trace (None Seen); Hyaline Casts Urine 0-2 /LPF (0-2); UACC Culture Trigger YES; WBC Urine >50 /HPF (0-5)
[2023-12-04 19:06] LABS: Alanine Aminotransferase 33 U/L (0-31); Albumin Level 4.1 g/dL (3.5-5.0); Alkaline Phosphatase 114 U/L (39-117); Anion Gap 16 (12-20); Aspartate Amino Transferase 32 U/L (5-31); Bilirubin Total 0.4 mg/dL (0.0-1.0); Blood Urea Nitrogen 13 mg/dL (9-16); Calcium 9.3 mg/dL (8.4-10.2); Carbon Dioxide 23 mmol/L (22-29); Chloride 109 mmol/L (96-108); Creatinine Clr Calc Pharmacy 79.1; Estimated Glomerular Filt Rate 59; Glucose Random 161 mg/dL (60-115); Lipase 19 U/L (8-78); Sodium 144 mmol/L (135-145); Total Protein 6.8 g/dL (6.5-8.0)
[2023-12-04 19:25] LABS: Basophils Percent Auto 0.3 % (0-2); Eosinophils Percent Auto 0.5 % (0-4); Hematocrit 40.5 % (37.0-47.0); Imm Gran Abs Auto 0.03 X10*3/uL (0.00-0.03); Imm Gran Pct Auto 0.4 % (0.0-0.4); Lymphocytes Percent Auto 12.6 % (20-40); Mean Corpuscular HGB Conc 32.1 g/dl (31.0-35.0); Mean Corpuscular Volume 87.1 fL (80.0-98.0); Mean Platelet Volume 8.6 fL (9.4-12.3); Monocytes Absolute Auto 0.3 X10*3/uL (0.1-1.2); Monocytes Percent Auto 4.2 % (2-11); Neutrophils Absolute Auto 6.4 x10*3/uL (2.0-8.3); Platelet Count 394 X10*3/uL (160-400); Red Blood Count 4.65 X10*6/uL (4.20-5.50); Red Cell Distribution Width 14.1 % (11.0-16.0); White Blood Count 7.8 X10*3/uL (4.8-10.8)
[2023-12-04 20:00] VITALS: BP 144/91; PULSE 95; RESP 16; TEMP 36.9; O2SAT 98
[2023-12-04] MEDS: 0.9 % Sodium Chloride 1,000 ML 999 ML IV (20:30)
--- NOTE | 2023-12-04 20:36 | ED.ABDPAIN ---
HPI - Abdominal Pain General Chief Complaint: Abdominal Pain Stated Complaint: vomiting, severe R abd pain to back Time Seen by Provider: 12/04/23 20:18 History of Present Illness HPI narrative: Patient is a 62-year-old female with a history diabetes presents today with nausea vomiting. Status post cholecystectomy in the past no other abdominal surgery. The pain is in the right lower quadrant and radiates to the back. Denies any history of kidney stone. Patient is from home. The symptoms started approximately 230 in the afternoon. Dull. No coughing or congestion or upper respiratory symptoms. No diaphoresis. MD elicited complaint: abdominal pain Pertinent past history: other (Status post cholecystectomy) Related Data Home Medications Medication Instructions Recorded Confirmed acetaminophen 325 mg tablet 650 mg PO Q4H PRN Pain 07/13/21 07/13/21 diclofenac sodium 75 mg 1 tab PO BID 07/13/21 07/13/21 tablet,delayed release furosemide 20 mg tablet 20 mg PO DAILY PRN Edema 07/13/21 07/13/21 venlafaxine 225 mg tablet,extended 1 tab PO DAILY 07/13/21 07/13/21 release 24 hr zolpidem 5 mg tablet 5 mg PO BEDTIME PRN Insomnia 07/13/21 07/13/21 Previous Rx's Medication Instructions Recorded metformin 500 mg tablet 500 mg PO BID #20 tabs 07/13/21 ondansetron HCl 4 mg tablet 4 mg PO Q8H PRN nausea and 07/13/21 (Zofran) vomiting #10 tabs cyclobenzaprine 10 mg tablet 10 mg PO TID #20 tabs 10/19/21 Allergies Allergy/AdvReac Type Severity Reaction Status Date / Time Sulfa (Sulfonamide Allergy Unknown HIVES Verified 12/04/23 18:17 Antibiotics) Review of Systems Review of Systems Yes all other systems are reviewed and are negative PMFSH Past Medical History Attestation statement: The following information was validated with the patient. 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 Oriented X3. No acute distress. Eyes: Pupils equal, round and reactive to light. ENT: Pharynx normal. Neck: Normal inspection. Neck supple. No lymph nodes noted. No crepitus CVS: Normal heart rate and rhythm. Pulses normal. Normal S1 and S2 Respiratory: No respiratory distress. Breath sounds normal. No Wheezing. No rales Abdomen: Soft and nontender. No rigidity. No distention. good BS x4 Skin: Skin warm and dry. Normal skin color. Normal skin turgor. Extremities: No lower extremity edema. Neurovascular intact to all extremities. No Lacerations. No Rash Neuro: Oriented X 3. No motor deficit. No sensory deficit. Moving all extermities. No slurred speech Medical Decision Making Medical Decision Making MDM Narrative: Positive abdominal pain, radiating from the right lower quadrant to the flank area. No history of kidney stones in the past. Status post cholecystectomy. Patient's white count was normal. Urine showed mildly elevated LFT more likely consistent with fatty liver. Lipase is normal there is no evidence for pancreatitis. Patient's urine showed large amount of blood along with gross urinary tract infection. Cultures obtained lactate was ordered. IV fluids started. Zofran for nausea. Question early pyelo. Versus infected stone versus appendicitis. A dose of Rocephin was ordered. Currently in stable condition. Lab Data 12/04/23 18:42 12/04/23 18:42 Labs: Lab Results 12/04/23 Range/Units 18:42 WBC 7.8 (4.8-10.8) X10*3/uL RBC 4.65 (4.20-5.50) X10*6/uL Hgb 13.0 (12.0-16.0) g/dl Hct 40.5 (37.0-47.0) % MCV 87.1 (80.0-98.0) fL MCH 28.0 (27.0-33.0) pg MCHC 32.1 (31.0-35.0) g/dl RDW 14.1 (11.0-16.0) % Plt Count 394 D (160-400) X10*3/uL MPV 8.6 L (9.4-12.3) fL Immature Gran % (Auto) 0.4 (0.0-0.4) % Neut % (Auto) 82.0 H (45-73) % Lymph % (Auto) 12.6 L (20-40) % [place] % (Auto) 4.2 (2-11) % Eos % (Auto) 0.5 (0-4) % Baso % (Auto) 0.3 (0-2) % Lymph # (Auto) 1.0 L (1.2-4.9) X10*3/uL [place] # (Auto) 0.3 (0.1-1.2) X10*3/uL Eos # (Auto) 0.0 (0.0-0.4) X10*3/uL Baso # (Auto) 0.0 (0.0-0.2) X10*3/uL Abs Immat Gran (auto) 0.03 (0.00-0.03) X10*3/uL Absolute Neuts (auto) 6.4 (2.0-8.3) x10*3/uL Absolute Nucleated RBC 0.000 (0.0-0.012) X10*3/uL Nucleated RBC % (auto) 0.0 (0.0-0.2) /100WBC Sodium 144 (135-145) mmol/L Potassium 4.0 (3.3-5.1) mmol/L Chloride 109 H (96-108) mmol/L Carbon Dioxide 23 (22-29) mmol/L Anion Gap 16 (12-20) BUN 13 (9-16) mg/dL Creatinine 0.97 (0.5-1.4) mg/dL Estim Creat Clear Calc 79.1 Estimated GFR 59 Random Glucose 161 H (60-115) mg/dL Calcium 9.3 (8.4-10.2) mg/dL Total Bilirubin 0.4 (0.0-1.0) mg/dL AST 32 H (5-31) U/L ALT 33 H (0-31) U/L Alkaline Phosphatase 114 (39-117) U/L Total Protein 6.8 (6.5-8.0) g/dL Albumin 4.1 (3.5-5.0) g/dL Lipase 19 (8-78) U/L Urine Color Yellow Urine Appearance Cloudy Urine pH 5.5 (5.0-9.0) Ur Specific [place] 1.010 (1.005-1.025) Urine Protein Negative (Neg-Trace) mg/dL Urine Glucose (UA) Negative (Negative) mg/dL Urine Ketones Trace (Negative) mg/dL Urine Blood Large (3+) H (Negative) Urine Nitrite Negative (Negative) Ur Leukocyte Esterase Large (3+) H (Negative) Urine RBC 11-20 H (0-2) /HPF Urine WBC >50 H (0-5) /HPF Ur Squamous Epith Cells 6-10 (0-2) /HPF Urine Bacteria Trace (None Seen) Hyaline Casts 0-2 (0-2) /LPF Medications Administered Generic Name Dose Route Start Last Admin Trade Name Freq PRN Reason Stop Dose Admin Sodium Chloride 1,000 mls @ 999 mls/hr 12/04/23 20:30 12/04/23 20:30 Ns IV 12/04/23 21:30 999 mls/hr .Q1H1M YARI Administration Discontinued Medications Generic Name Dose Route Start Last Admin Trade Name Freq PRN Reason Stop Dose Admin Hydromorphone HCl 0.5 mg 12/04/23 20:16 12/04/23 20:40 Hydromorphone Hcl 0.5 Mg/0.5 Ml Syringe IVPUSH 12/04/23 20:17 0.5 mg ONCE ONE Administration Protocol Ondansetron HCl 4 mg 12/04/23 20:16 12/04/23 20:40 Ondansetron Hcl 4 Mg/2 Ml Vial IVPUSH 12/04/23 20:17 4 mg ONCE ONE Administration Discharge Plan Discharge Clinical Impression: Abdominal pain, Urinary tract infection Patient Disposition: Still a Patient Prescriptions: No Action cyclobenzaprine 10 mg tablet 10 mg PO TID Qty: 20 0RF diclofenac sodium 75 mg tablet,delayed release (DR/EC) 1 tab PO BID furosemide 20 mg Tablet 20 mg PO DAILY PRN (Reason: Edema) venlafaxine 225 mg tablet extended release 24hr 1 tab PO DAILY acetaminophen 325 mg Tablet 650 mg PO Q4H PRN (Reason: Pain) zolpidem 5 mg tablet 5 mg PO BEDTIME PRN (Reason: Insomnia) metformin 500 mg tablet 500 mg PO BID Qty: 20 0RF ondansetron HCl [Zofran] 4 mg tablet 4 mg PO Q8H PRN (Reason: nausea and vomiting) Qty: 10 0RF
[2023-12-04] MEDS: ondansetron HCL 4 MG/2 ML VIAL IVPUSH (20:40)
[2023-12-04] MEDS: HYDROmorphone HCl 0.5 MG/0.5 ML SYRINGE IVPUSH (20:40)
[2023-12-04 20:58] LABS: Lactic Acid 1.5 mmol/L (0.5-2.0)
[2023-12-04 21:04] VITALS: BP 125/82; PULSE 100; RESP 18; TEMP 37; O2SAT 100
[2023-12-04] MEDS: cefTRIAXone sodium 1 GM in 0.9 % Sodium Chloride 50 ML IV (21:05)
[2023-12-04 22:05] VITALS: BP 149/80; PULSE 96; RESP 16; TEMP 37.2; O2SAT 98
[2023-12-04 22:40] VITALS: BP 149/80; PULSE 96; RESP 16; TEMP 36.6; O2SAT 98
== END 2023-12-04 22:43 | disposition home or self-care (01) ==
PROVIDERS: Physician Assistant; Emergency Provider Emergency Medicine Emergency Medical Services; PCP Internal Medicine
DX: N39.0 Urinary tract infection, site not specified (principal); R10.30 Lower abdominal pain, unspecified; R11.2 Nausea with vomiting, unspecified; M54.50 Low back pain, unspecified; Z79.899 Other long term (current) drug therapy
CPT/HCPCS: 36415; 74176; 80053; 81001; 83605; 83690; 85025; 87040; 87086; 87147; 96361; 96374; 96375; 99284; J0696; J1170; J2405

== ENCOUNTER 2023-12-22 11:36 | Outpatient (REF) | payer OTHER, SELFPAY ==
[2023-12-22 13:23] LABS: MANUAL DIFF FLAG NO
[2023-12-22 13:32] LABS: Basophils Percent Auto 0.3 % (0-2); Eosinophils Absolute Auto 0.1 X10*3/uL (0.0-0.4); Eosinophils Percent Auto 1.8 % (0-4); Hematocrit 40.6 % (37.0-47.0); Hemoglobin 12.5 g/dl (12.0-16.0); Imm Gran Abs Auto 0.01 X10*3/uL (0.00-0.03); Imm Gran Pct Auto 0.3 % (0.0-0.4); Lymphocytes Absolute Auto 1.6 X10*3/uL (1.2-4.9); Mean Corpuscular HGB Conc 30.8 g/dl (31.0-35.0); Mean Corpuscular Hemoglobin 26.8 pg (27.0-33.0); Mean Corpuscular Volume 87.1 fL (80.0-98.0); Monocytes Absolute Auto 0.3 X10*3/uL (0.1-1.2); Monocytes Percent Auto 7.4 % (2-11); Neutrophils Absolute Auto 1.8 x10*3/uL (2.0-8.3); Neutrophils Percent Auto 48.2 % (45-73); Platelet Count 294 X10*3/uL (160-400); Red Blood Count 4.66 X10*6/uL (4.20-5.50); Red Cell Distribution Width 13.8 % (11.0-16.0); White Blood Count 3.8 X10*3/uL (4.8-10.8)
[2023-12-22 14:01] LABS: Alanine Aminotransferase 38 U/L (0-31); Alkaline Phosphatase 99 U/L (39-117); Anion Gap 13 (12-20); Aspartate Amino Transferase 24 U/L (5-31); Bilirubin Direct 0.1 mg/dL (0.0-0.5); Bilirubin Total 0.3 mg/dL (0.0-1.0); Blood Urea Nitrogen 11 mg/dL (9-16); Calcium 9.4 mg/dL (8.4-10.2); Carbon Dioxide 27 mmol/L (22-29); Chloride 105 mmol/L (96-108); Estimated Glomerular Filt Rate > 60; Glucose Random 150 mg/dL (60-115); Potassium 4.5 mmol/L (3.3-5.1); Sodium 140 mmol/L (135-145); Total Protein 6.6 g/dL (6.5-8.0)
[2023-12-22 14:22] LABS: Appearance Urine Clear; Color Urine Yellow; Glucose Urine UA Negative (Negative); Leukocyte Esterase Urine Moderate (2+) (Negative); Nitrite Urine Negative (Negative); PH 5.5 (5.0-9.0); UMIC TRIGGER UA YES; Urine Blood Negative (Negative); Urine Ketones Negative (Negative); Urine Protein Negative (Neg-Trace)
[2023-12-22 14:35] LABS: Bacteria Urine None Seen (None Seen); RBC Urine 0-2 /HPF (0-2); Squamous Epithelial Cell Urine 0-2 /HPF (0-2)
== END 2023-12-22 11:37 | disposition home or self-care (01) ==
LOC: HO.HMGCLDS 11:36
PROVIDERS: PCP Internal Medicine; Visit Provider Internal Medicine
DX: N20.0 Calculus of kidney (principal)
CPT/HCPCS: 36415; 80048; 80076; 81001; 85025; 87086; 87147

== ENCOUNTER 2024-01-07 14:21 | Outpatient (AMB) | payer OTHER, SELFPAY ==
--- NOTE | 2024-01-07 15:17 | A.OFFVIS_ITS ---
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 Was in the ED on 12/04/23 with right flank and lower quadrant pain CT imaging mild right hydronephrosis with perinephric stranding into proximal ureteral stones She was given Flomax She states she recently had right knee surgery October 31 she did have a lot of nausea and vomiting after the procedure. She states that she passed both stones she did see them in the toilet, when she was able to retrieve and describes it as a black hard pebble like Plan metabolic workup, 24 urine collection will check renal ultrasound. To re--evaluate right kidney, to confirm resolution of perinephric stranding and hydronephrosis. 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 [employer] All systems reviewed & are unremarkable except as noted in HPI and below Reports no additional complaints Eyes Reports no additional complaints ENT Reports no additional complaints Card Reports no additional complaints Resp Reports no additional complaints GI Reports no additional complaints Reports as per HPI Musc Reports no additional complaints Skin/Breast Reports system reviewed and no additional complaints, except as documented Neuro Reports no additional complaints Psych Reports no additional complaints Endo Reports no additional complaints Magdi/Lymph Reports no additional complaints Aller/Immun Reports no additional complaints Physical Exam Const General: cooperative, healthy appearing and no acute distress Orientation/consciousness: patient oriented x3 HEENT Head: Yes normal to inspection, Yes normocephalic and Yes atraumatic Eyes Conjunctivae: conjunctivae normal Neck Neck: Yes normal visual inspection and Yes trachea midline Chest Chest palpation & inspection: normal inspection of the chest Resp Effort & Inspection: normal respiratory effort Cardio Rate: regular rate GI Inspection: Yes normal to inspection Skin General skin exam: no rashes or lesions noted Neuro General: patient oriented x3 Extrem General: No edema Psych Appearance: grossly normal Results AMB Urinalysis, Automated UA Leukoctes 125 [place]/uL Last Edit by TATIANA Hoang on 01/07/24 15:44 2+ Shanelle Mane 01/07/24 15:44 UA Nitrite Negative Last Edit by TATIANA Hoang on 01/07/24 15:44 UA Urobilinogen 0.2 mg/dL Last Edit by TATIANA Hoang on 01/07/24 15:4 4 1+ Shanelle Mane 01/07/24 15:44 UA Protein 30 mg/dL Last Edit by TATIANA Hoang on 01/07/24 15:44 UA pH 6.0 Last Edit by TATIANA Hoang on 01/07/24 15:44 UA Blood 10 [place]/uL Last Edit by TATIANA Hoang on 01/07/24 15:44 UA Specific [place] 1.030 Last Edit by TATIANA Hoang on 01/07/24 15: 44 UA Ketone Negative Last Edit by TATIANA Hoang on 01/07/24 15:44 UA Bilirubin 1 mg/dL Last Edit by TATIANA Hoang on 01/07/24 15:44 UA Glucose 0 mg/dL Last Edit by TATIANA Hoang on 01/07/24 15:44 Results Reviewed Results Reviewed: Laboratory Last Values Urine pH (Auto) 6.0 01/07/24 15:43 Specific [place] (Auto) 1.030 01/07/24 15:43 Urine Protein (Auto) 30 mg/dL 01/07/24 15:43 Glucose (UA)(Auto) 0 mg/dL 01/07/24 15:43 Urine Ketones (Auto) Negative 01/07/24 15:43 Urine Blood (Auto) 10 [place]/uL 01/07/24 15:43 Urine Nitrite (Auto) Negative 01/07/24 15:43 Urine Bilirubin (Auto) 1 mg/dL 01/07/24 15:43 Urine Urobilinogen (Auto) 0.2 mg/dL 01/07/24 15:43 Leukocyte Esterase (Auto) 125 [place]/uL 01/07/24 15:43 Date of Service: 12/04/23 EXAMINATION: CT ABDOMEN AND PELVIS WITHOUT CONTRAST CLINICAL INFORMATION: Abdominal pain COMPARISON: CT abdomen pelvis on 03/28/2010 TECHNIQUE: Multidetector volumetric imaging was performed from the superior aspect of the liver through the pubic symphysis. Sagittal and coronal reformatted images were obtained on the technologist's workstation. This CT examination was performed using dose optimization techniques as appropriate, variously including the following: *Automated exposure control *Adjustment of mA and/or kV according to patient size (this includes techniques or standardized protocols for targeted exams where dose is matched to indication/reason for exam; i.e. extremities or head) *Use of iterative reconstruction technique DLP: 1120 mGy-cm FINDINGS: LUNG BASES: The visualized lung bases are unremarkable. LIVER, GALLBLADDER, AND BILIARY TREE: The liver is normal in size, shape, and attenuation. No focal hepatic lesion or biliary ductal dilatation is present. Prior cholecystectomy. PANCREAS: Unremarkable. SPLEEN: Unremarkable. ADRENAL GLANDS: Unremarkable. KIDNEYS AND URETERS: The bilateral kidneys are normal in size. There is no left hydronephrosis or renal calculi. There is mild left hydronephrosis and proximal hydroureter secondary to 2 adjacent obstructing calculi in the right proximal ureter measuring 0.3 and 0.4 cm. There is perinephric stranding surrounding the right kidney. BLADDER: Unremarkable. GASTROINTESTINAL TRACT: Moderate hiatal hernia. Small large bowel are otherwise normal in caliber. Colonic diverticulosis is noted. ABDOMINAL WALL: No significant hernia is appreciated. LYMPH NODES: Normal. VASCULAR: Mild atherosclerotic disease. PELVIC VISCERA: Unremarkable. OSSEOUS STRUCTURES: Unremarkable. IMPRESSION: 1. Mild right hydronephrosis and proximal hydroureter secondary to 2 adjacent obstructing calculi in the right proximal ureter measuring 0.3 and 0.4 cm. 2. Moderate hiatal hernia. Assessment & Plan Assessment & Plan (1) Hydronephrosis, right: Code(s): N13.30 - Unspecified hydronephrosis Category: Medical (2) Renal and ureteric calculus: Code(s): N20.2 - Calculus of kidney with calculus of ureter Category: Medical (3) Right flank pain: Code(s): R10.9 - Unspecified abdominal pain Category: Medical Plan metabolic workup, 24 urine collection will check renal ultrasound. To re--evaluate right kidney, to confirm resolution of perinephric stranding and hydronephrosis. Urinalysis 2+ leukocytes will check surveillance urine culture Follow-up in 8 weeks Orders: Orders Urine Culture 01/07/24 N39.0 - Urinary tract infection, site not specified US renal BI 01/07/24 N13.30 - Unspecified hydronephrosis, N20.1 - Calculus of ureter AMB Urinalysis Automated 01/07/24 Z13.9 - Encounter for screening, unspecified Coding Level of Care Code New Pt Level 4 (24863) Diagnoses Hydronephrosis, right N13.30 Renal and ureteric calculus N20.2 Right flank pain R10.9
== END 2024-01-07 15:58 | disposition home or self-care (01) ==
PROVIDERS: PCP Internal Medicine; Visit Provider Urology
DX: N13.30 Unspecified hydronephrosis (principal); N20.2 Calculus of kidney with calculus of ureter; R10.9 Unspecified abdominal pain
CPT/HCPCS: 99204

== ENCOUNTER 2024-01-07 14:21 | Outpatient (REF) | payer OTHER, SELFPAY | END 2024-01-07 14:22 | disposition home or self-care (01) | LOC: HO.LAB 14:21 | PROVIDERS: PCP Internal Medicine; Visit Provider Urology | DX: N39.0 Urinary tract infection, site not specified (principal); N20.2 Calculus of kidney with calculus of ureter; N13.30 Unspecified hydronephrosis | CPT/HCPCS: 81003; 87086; 87147 ==

== ENCOUNTER 2024-02-18 09:53 | Outpatient (REF) | payer OTHER, SELFPAY ==
[2024-02-18 13:38] LABS: MANUAL DIFF FLAG NO
[2024-02-18 13:48] LABS: Basophils Percent Auto 0.8 % (0-2); Eosinophils Absolute Auto 0.1 X10*3/uL (0.0-0.4); Eosinophils Percent Auto 2.5 % (0-4); Hematocrit 41.3 % (37.0-47.0); Hemoglobin 13.4 g/dl (12.0-16.0); Imm Gran Abs Auto 0.01 X10*3/uL (0.00-0.03); Imm Gran Pct Auto 0.3 % (0.0-0.4); Lymphocytes Absolute Auto 1.3 X10*3/uL (1.2-4.9); Lymphocytes Percent Auto 36.8 % (20-40); Mean Corpuscular HGB Conc 32.4 g/dl (31.0-35.0); Mean Corpuscular Volume 83.1 fL (80.0-98.0); Mean Platelet Volume 9.5 fL (9.4-12.3); Monocytes Absolute Auto 0.2 X10*3/uL (0.1-1.2); Monocytes Percent Auto 6.2 % (2-11); Neutrophils Absolute Auto 1.9 x10*3/uL (2.0-8.3); Neutrophils Percent Auto 53.4 % (45-73); Platelet Count 274 X10*3/uL (160-400); Red Blood Count 4.97 X10*6/uL (4.20-5.50); Red Cell Distribution Width 14.5 % (11.0-16.0); White Blood Count 3.5 X10*3/uL (4.8-10.8)
[2024-02-18 13:57] LABS: Appearance Urine Turbid; Color Urine Yellow; Glucose Urine UA Negative (Negative); Leukocyte Esterase Urine Small (1+) (Negative); Nitrite Urine Negative (Negative); PH 5.5 (5.0-9.0); UMIC TRIGGER UA YES; Urine Blood Negative (Negative); Urine Ketones Negative (Negative); Urine Protein Negative (Neg-Trace)
[2024-02-18 13:57] LABS: Estimated Average Glucose 154 mg/dL
[2024-02-18 14:06] LABS: Alanine Aminotransferase 32 U/L (0-31); Albumin Level 4.1 g/dL (3.5-5.0); Alkaline Phosphatase 100 U/L (39-117); Anion Gap 12 (12-20); Aspartate Amino Transferase 22 U/L (5-31); Bilirubin Total 0.4 mg/dL (0.0-1.0); Blood Urea Nitrogen 11 mg/dL (9-16); Calcium 9.2 mg/dL (8.4-10.2); Carbon Dioxide 25 mmol/L (22-29); Chloride 107 mmol/L (96-108); Cholesterol 147 mg/dL (<200); Estimated Glomerular Filt Rate > 60; Glucose Fasting 143 mg/dL (60-99); HDL Cholesterol 52 mg/dL (>40); LDL Cholesterol Calculated 78 mg/dL (<100); Potassium 4.4 mmol/L (3.3-5.1); Sodium 140 mmol/L (135-145); Total Protein 6.6 g/dL (6.5-8.0); Triglycerides 88 mg/dL (<150)
[2024-02-18 14:20] LABS: Bacteria Urine Trace (None Seen); Hyaline Casts Urine 0-2 /LPF (0-2); RBC Urine 0-2 /HPF (0-2); WBC Urine 0-5 /HPF (0-5)
[2024-02-18 14:25] LABS: Thyroid Stimulating Hormone 1.03 uIU/mL (0.32-4.0); Vitamin D 25-OH Total 21.7 ng/mL (>30)
[2024-02-18 14:41] LABS: Creatinine Urine 127.11 mg/dL; Microalbum/Creatinine Ratio Ur 13.3 ug/mg cr (<30)
== END 2024-02-18 09:54 | disposition home or self-care (01) ==
LOC: HO.HMGCLDS 09:53
PROVIDERS: PCP Internal Medicine; Visit Provider Internal Medicine
DX: I10 Essential (primary) hypertension (principal); E11.9 Type 2 diabetes mellitus without complications; N20.0 Calculus of kidney; F32.9 Major depressive disorder, single episode, unspecified; G47.33 Obstructive sleep apnea (adult) (pediatric); M17.9 Osteoarthritis of knee, unspecified; K21.9 Gastro-esophageal reflux disease without esophagitis; M15.0 Primary generalized (osteo)arthritis
CPT/HCPCS: 36415; 80053; 80061; 81001; 82043; 82306; 82570; 83036; 84443; 85025

== ENCOUNTER 2024-02-27 08:23 | Outpatient (REF) | payer OTHER, SELFPAY ==
--- NOTE | ~2024-02-27 | US_ITS ---
EXAMINATION: US RETROPERITONEAL LIMITED (RENAL ONLY) CLINICAL INFORMATION: Unspecified hydronephrosis. COMPARISON: CT abdomen and pelvis 12/04/2023. Ultrasound abdomen 03/25/2010. TECHNIQUE: Real-time imaging of the kidneys. FINDINGS: RIGHT KIDNEY: 13.5 x 5.2 x 6.5 cm (SAG x AP x TRV). The kidney is normal in size, contour, and echogenicity. Renal cortical thickness is normal. No calculi or focal parenchymal lesions. No hydronephrosis. The previously seen mild right-sided hydronephrosis secondary to obstructing ureteral calculi is no longer present. LEFT KIDNEY: 11.5 x 6.7 x 5.6 cm (SAG x AP x TRV). The kidney is normal in size, contour, and echogenicity. Renal cortical thickness is normal. No calculi or focal parenchymal lesions. No hydronephrosis. US/US renal BI IMPRESSION: Normal-appearing kidneys.
== END 2024-02-27 08:24 | disposition home or self-care (01) ==
LOC: HO.HMGCX 08:23
PROVIDERS: PCP Internal Medicine; Visit Provider Urology
DX: N13.30 Unspecified hydronephrosis (principal); N20.1 Calculus of ureter
CPT/HCPCS: 76775

== ENCOUNTER 2024-03-05 11:31 | Outpatient (AMB) | payer OTHER, SELFPAY ==
--- NOTE | 2024-03-05 11:45 | A.OFFVIS_ITS ---
Intake Visit Reasons: 2m/US/[facility] Intake Note: Patient presents today for a US and [facility] Results : Meds- None Allergies to Antibiotic- Sulfa Blood Thinner- None Battery Loader Required: No Accompanied by: Self / Same As Patient Allergies Sulfa (Sulfonamide Antibiotics) Allergy (Unknown, Verified 03/05/24 11:46) HIVES HPI Comments Details: 03/05/2024--I reviewed that the renal ultrasound 02/27/2024 was within normal limits right hydronephrosis is resolved. Discussed 24 hour urine results: Total volume 2.02 mL, Calcium 239 mg (eleveted); Oxalate 33 mg, Sodium 297(elevated), Citrate 916 mg. Instructed on importance of fluid intake, Low oxalate diet, low sodium diet. Follow-up in 1 year renal ultrasound at that time. 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 Was in the ED on 12/04/23 with right flank and lower quadrant pain CT imaging mild right hydronephrosis with perinephric stranding into proximal ureteral stones She was given Flomax She states she recently had right knee surgery October 31 she did have a lot of nausea and vomiting after the procedure. She states that she passed both stones she did see them in the toilet, when she was able to retrieve and describes it as a black hard pebble like. Plan metabolic workup, 24 urine collection will check renal ultrasound. To re--evaluate right kidney, to confirm resolution of perinephric stranding and hydronephrosis. 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 [employer] All systems reviewed & are unremarkable except as noted in HPI and below Reports no additional complaints Eyes Reports no additional complaints ENT Reports no additional complaints Card Reports no additional complaints Resp Reports no additional complaints GI Reports no additional complaints Reports as per HPI Musc Reports no additional complaints Skin/Breast Reports system reviewed and no additional complaints, except as documented Neuro Reports no additional complaints Psych Reports no additional complaints Endo Reports no additional complaints Magdi/Lymph Reports no additional complaints Aller/Immun Reports no additional complaints Results Reviewed Results Reviewed: Date of Service: 02/27/24 EXAMINATION: US RETROPERITONEAL LIMITED (RENAL ONLY) CLINICAL INFORMATION: Unspecified hydronephrosis. COMPARISON: CT abdomen and pelvis 12/04/2023. Ultrasound abdomen 03/25/2010. TECHNIQUE: Real-time imaging of the kidneys. FINDINGS: RIGHT KIDNEY: 13.5 x 5.2 x 6.5 cm (SAG x AP x TRV). The kidney is normal in size, contour, and echogenicity. Renal cortical thickness is normal. No calculi or focal parenchymal lesions. No hydronephrosis. The previously seen mild right-sided hydronephrosis secondary to obstructing ureteral calculi is no longer present. LEFT KIDNEY: 11.5 x 6.7 x 5.6 cm (SAG x AP x TRV). The kidney is normal in size, contour, and echogenicity. Renal cortical thickness is normal. No calculi or focal parenchymal lesions. No hydronephrosis. IMPRESSION: Normal-appearing kidneys. Date of Service: 12/04/23 EXAMINATION: CT ABDOMEN AND PELVIS WITHOUT CONTRAST CLINICAL INFORMATION: Abdominal pain COMPARISON: CT abdomen pelvis on 03/28/2010 TECHNIQUE: Multidetector volumetric imaging was performed from the superior aspect of the liver through the pubic symphysis. Sagittal and coronal reformatted images were obtained on the technologist's workstation. This CT examination was performed using dose optimization techniques as appropriate, variously including the following: *Automated exposure control *Adjustment of mA and/or kV according to patient size (this includes techniques or standardized protocols for targeted exams where dose is matched to indication/reason for exam; i.e. extremities or head) *Use of iterative reconstruction technique DLP: 1120 mGy-cm FINDINGS: LUNG BASES: The visualized lung bases are unremarkable. LIVER, GALLBLADDER, AND BILIARY TREE: The liver is normal in size, shape, and attenuation. No focal hepatic lesion or biliary ductal dilatation is present. Prior cholecystectomy. PANCREAS: Unremarkable. SPLEEN: Unremarkable. ADRENAL GLANDS: Unremarkable. KIDNEYS AND URETERS: The bilateral kidneys are normal in size. There is no left hydronephrosis or renal calculi. There is mild left hydronephrosis and proximal hydroureter secondary to 2 adjacent obstructing calculi in the right proximal ureter measuring 0.3 and 0.4 cm. There is perinephric stranding surrounding the right kidney. BLADDER: Unremarkable. GASTROINTESTINAL TRACT: Moderate hiatal hernia. Small large bowel are otherwise normal in caliber. Colonic diverticulosis is noted. ABDOMINAL WALL: No significant hernia is appreciated. LYMPH NODES: Normal. VASCULAR: Mild atherosclerotic disease. PELVIC VISCERA: Unremarkable. OSSEOUS STRUCTURES: Unremarkable. IMPRESSION: 1. Mild right hydronephrosis and proximal hydroureter secondary to 2 adjacent obstructing calculi in the right proximal ureter measuring 0.3 and 0.4 cm. 2. Moderate hiatal hernia. Assessment & Plan Assessment & Plan (1) Hydronephrosis, right: Code(s): N13.30 - Unspecified hydronephrosis Category: Medical (2) Renal and ureteric calculus: Code(s): N20.2 - Calculus of kidney with calculus of ureter Category: Medical (3) Right flank pain: Code(s): R10.9 - Unspecified abdominal pain Category: Medical (4) Hypercalciuria: Code(s): R82.994 - Hypercalciuria Category: Medical Plan Right hydronephrosis resolved. Follow-up in 1 year renal ultrasound at that time. Patient Instructions: The patient had an opportunity to ask questions regarding treatment plan. The patient expressed understanding and agreement with the above treatment plan. The patient is aware they should contact our office by phone for worsening of their current condition or the appearance of new symptoms. Compliance is encouraged with any medications and followup testing that is ordered. It is a privilege to be allowed the opportunity to participate in the urologic care of your patient. If you have any questions or concerns regarding treatment for the above conditions please do not hesitate to contact me. The office telephone contact is [phone]. This note is constructed in part using voice recognition software. While every effort has been made to ensure accuracy kitchenhand errors may have been included. Yours sincerely, Víctor Marte MD Coding Level of Care Code Est Pt Level 4 (97482) Diagnoses Hydronephrosis, right N13.30 Renal and ureteric calculus N20.2 Right flank pain R10.9 Hypercalciuria R82.994
== END 2024-03-05 12:25 | disposition home or self-care (01) ==
PROVIDERS: PCP Internal Medicine; Visit Provider Urology
DX: N13.30 Unspecified hydronephrosis (principal); N20.2 Calculus of kidney with calculus of ureter; R10.9 Unspecified abdominal pain; R82.994 Hypercalciuria
CPT/HCPCS: 99214

== ENCOUNTER → 2024-03-05 11:31 | Outpatient (BNVA) | payer OTHER, SELFPAY | PROVIDERS: PCP Internal Medicine; Visit Provider Urology ==

== ENCOUNTER 2024-08-30 10:57 | Outpatient (REF) | payer OTHER, SELFPAY ==
[2024-08-30 13:23] LABS: MANUAL DIFF FLAG NO
[2024-08-30 13:27] LABS: Basophils Percent Auto 0.7 % (0-2); Eosinophils Absolute Auto 0.1 X10*3/uL (0.0-0.4); Hemoglobin 12.8 g/dl (12.0-16.0); Imm Gran Abs Auto 0.01 X10*3/uL (0.00-0.03); Imm Gran Pct Auto 0.2 % (0.0-0.4); Lymphocytes Absolute Auto 1.2 X10*3/uL (1.2-4.9); Lymphocytes Percent Auto 30.4 % (20-40); Mean Corpuscular HGB Conc 31.2 g/dl (31.0-35.0); Mean Corpuscular Hemoglobin 26.8 pg (27.0-33.0); Mean Corpuscular Volume 85.8 fL (80.0-98.0); Mean Platelet Volume 9.1 fL (9.4-12.3); Monocytes Absolute Auto 0.3 X10*3/uL (0.1-1.2); Monocytes Percent Auto 6.2 % (2-11); Neutrophils Absolute Auto 2.4 x10*3/uL (2.0-8.3); Neutrophils Percent Auto 60.5 % (45-73); Platelet Count 291 X10*3/uL (160-400); Red Blood Count 4.78 X10*6/uL (4.20-5.50); Red Cell Distribution Width 13.6 % (11.0-16.0)
[2024-08-30 13:40] LABS: Estimated Average Glucose 117 mg/dL; Hemoglobin A1C 129.5094 umol/L; Hemoglobin A1c % 5.7 % (<6.0)
[2024-08-30 14:01] LABS: Alanine Aminotransferase 31 U/L (0-31); Albumin Level 3.9 g/dL (3.5-5.0); Alkaline Phosphatase 113 U/L (39-117); Anion Gap 11 (12-20); Aspartate Amino Transferase 29 U/L (5-31); Bilirubin Total 0.3 mg/dL (0.0-1.0); Blood Urea Nitrogen 13 mg/dL (9-16); Calcium 8.8 mg/dL (8.4-10.2); Carbon Dioxide 27 mmol/L (22-29); Chloride 108 mmol/L (96-108); Cholesterol 126 mg/dL (<200); Estimated Glomerular Filt Rate > 60; Glucose Fasting 99 mg/dL (60-99); HDL Cholesterol 44 mg/dL (>40); LDL Cholesterol Calculated 64 mg/dL (<100); Potassium 4.5 mmol/L (3.3-5.1); Sodium 141 mmol/L (135-145); Total Protein 6.4 g/dL (6.5-8.0); Triglycerides 94 mg/dL (<150)
[2024-08-30 14:04] LABS: Thyroid Stimulating Hormone 1.62 uIU/mL (0.32-4.0)
[2024-08-30 14:06] LABS: Creatinine Urine 211.24 mg/dL
[2024-08-30 14:21] LABS: Folate 4.6 ng/mL (> or = 4.0); Vitamin B12 321 pg/mL (200-900)
--- OUTSIDE RECORDS SUMMARY | 2024-09-01 14:54 | XMS_ITS ---
Author Organization [facility] Address [address] [place] [phone] Care Team Providers Care Safety Grooving Machine Operator Name Role Phone Kvng Colón DO Primary Care Provider Unavail able Elpidio Meng, Kolby Unavailable Encounters Encounter Location Date Provider Diagnosis [facility] [address] [place] [phone] 08/06/2024 Kolby Magallanes Jr PLAN OF TREATMENT No Information
--- OUTSIDE RECORDS SUMMARY | 2024-09-01 14:54 | XMS_ITS ---
Author Organization Kvng Colón DO [facility] Address [address] [place] [phone] Care Team Providers Care Clamper Name Role Phone KatarzynaKvng brown Primary Care Provider RESULTS Component Value Reference Range Notes Vitamin B12 and Folate Reviewed date:08/30/2024 02:47:20 PM Interpretation:Normal Performing Lab:[facility], [address] [place] [phone] Notes/Report: Vitamin B12 321 200-900 pg/mL NORMAL 200-900 PG/ML INDETERMINATE 160-199 PG/ML DEFICIENT < 160 PG/ML Folate 4.6 > or = 4.0 ng/mL Reference Values: > or = 4.0 ng/mL < 4.0 ng/mL suggests folate deficiency Methotrexate, aminopterin and folinic acid (leucovorin) are chemotherapeutic agents whose molecular structures are similar to folate; therefore, the Acute Care Occupational Therapist folate assay cannot be used for patients using these drugs. REASON FOR VISIT Message Encounters Encounter Location Date Provider Diagnosis Kvng Colón DO, FACP [address] [place] [phone] 08/23/2024 Kvng Colón Fatigue, unspecified type R53.83 ASSESSMENTS Encounter Date Diagnosis Assessment Notes Treatment Notes Treatment Clinical Notes 08/23/2024 Fatigue, unspecified type (ICD-10 - R53.83) PLAN OF TREATMENT Next Appt Details Provider Name:Kvng kenadll, 12/01/2024 11:00:00 AM, [address] [place] [address], [phone],
--- OUTSIDE RECORDS SUMMARY | 2024-09-01 14:54 | XMS_ITS ---
Author Organization [facility] Col[facility] Address [address] [place], [place] [id number] Care Team Providers Care Mold Capper Name Role Phone Kvng Colón Primary Care Provider REASON FOR VISIT FYI Encounters Encounter Location Date Provider Diagnosis Kvng Colón DO, [address] [phone] 07/30/2024 Kvng Colón PLAN OF TREATMENT Next Appt Details Provider Name:Kvng kendall, 12/01/2024 11:00:00 AM, [address], [place], [phone],
--- OUTSIDE RECORDS SUMMARY | 2024-09-01 14:54 | XMS_ITS | Patient Health Record ---
Author Organization Kvng Colón DO, FAC Address [address] [place] [address] [id number] Care Team Providers Care Information Assurance Manager Name Role Phone Kvng Colón Primary Care Provider ALLERGIES Allergen (clinical drug ingredient) Drug/Non Drug Allergy documented on EMR Reaction Allergy Type Onset Date Status sulfa urticaria Drug Allergy Active RESULTS Component Value Reference Range Notes Basic Metabolic Panel Fastin g Reviewed date:09/19/2023 01:06:26 PM Interpretation:Abnormal Performing Lab:[facility], [address] [place] [phone] Notes/Report: Sodium 140 135-145 mmol/L Potassium 4.2 3.3-5.1 mmol/L Chloride 107 96-108 mmol/L Carbon Dioxide 24 22-29 mmol/L Anion Gap 13 12-20 Blood Urea Nitrogen 16 9-16 mg/dL Creatinine 0.82 0.5-1.4 mg/dL Estimated Glomerular Filt Rate > 60 NOTE: For -Greek individuals, multiply the result by 1.210. Chronic Kidney Disease: Estimated GFR < 60 mL/min/1.73m2 Severe Kidney Disease: Estimated GFR < 15 mL/min/1.73m2 Glucose Fasting 159 60-99 mg/dL A fasting glucose of 126 mg/dl or greater on more than one occasion is considered diagnostic of diabetes. Calcium 9.1 8.4-10.2 mg/dL Lipid Panel Reviewed date:09/19/2023 01:06:26 PM Interpretation:Normal Performing Lab:[facility], [address] [place] [phone] Notes/Report: Triglycerides 103 <150 mg/dL Desirable Triglyceride: less than 150 mg/dL Borderline High Triglyceride 150-199 mg/dL High Triglyceride: 200-499 mg/dL Very High Triglyceride: greater than or equal to 5OO mg/dL Cholesterol 134 <200 mg/dL Desirable Cholesterol: less than 200 mg/dL Borderline High Cholesterol: 200-239 mg/dL High Cholesterol: greater than 239 mg/dL LDL Cholesterol Calculated 66 <100 mg/dL Desirable LDL: less than 100 mg/dL Near Optimal/Above Optimal LDL: 110-129 mg/dL Borderline High LDL: 130-159 mg/dL High LDL: 160-189 mg/dL Very High LDL: greater than or equal to 190 mg/dL HDL Cholesterol 48 >40 mg/dL Desirable HDL: greater than 40 mg/dL Note: This HDL assay may give artificially low results in patients with liver disease. Hemoglobin A1c Reviewed date:09/19/2023 01:06:59 PM Interpretation:Stable Performing Lab:[facility], [address] [place] [phone] Notes/Report: Hemoglobin A1c % 6.7 <6.0 % Hemoglobin A1C Reference Range Adults: 4.8 - 6.0 % Non diabetic: < 6.0 % Goal: < 7.0 % Additional Action Suggested: > 8.0 % Note: Hemoglobin A1c results are invalid for patients with abnormal amounts of HbF. Blood transfusions may impact the HbA1c concentration in the patient sample. Estimated Average Glucose 146 eAG = Estimated average glucose which is %A1C expressed as average glucose, using the formula of the L0B-Oankcdz Average Glucose study (ADAG), Diabetes Care, Vol.31,#8, Apr. 2007 Complete Blood Count Auto Di ff Reviewed date:12/05/2023 09:01:58 AM Interpretation:Abnormal Performing Lab:[facility], [address] [place] [phone] Notes/Report: White Blood Count 7.8 4.8-10.8 X10*3/uL Red Blood Count 4.65 4.20-5.50 X10*6/uL Hemoglobin 13.0 12.0-16.0 g/dl Hematocrit 40.5 37.0-47.0 % Mean Corpuscular Volume 87.1 80.0-98.0 fL Mean Corpuscular Hemoglobin 28.0 27.0-33.0 pg Mean Corpuscular HGB Conc 32.1 31.0-35.0 g/dl Red Cell Distribution Width 14.1 11.0-16.0 % Platelet Count 394 160-400 X10*3/uL Mean Platelet Volume 8.6 9.4-12.3 fL Neutrophils Percent Auto 82.0 45-73 % Imm Gran Pct Auto 0.4 0.0-0.4 % Lymphocytes Percent Auto 12.6 20-40 % Monocytes Percent Auto 4.2 2-11 % Eosinophils Percent Auto 0.5 0-4 % Basophils Percent Auto 0.3 0-2 % NRBC Pct Auto 0.0 0.0-0.2 /100WBC Neutrophils Absolute Auto 6.4 2.0-8.3 x10*3/uL Imm Gran Abs Auto 0.03 0.00-0.03 X10*3/uL Lymphocytes Absolute Auto 1.0 1.2-4.9 X10*3/uL Monocytes Absolute Auto 0.3 0.1-1.2 X10*3/uL Eosinophils Absolute Auto 0.0 0.0-0.4 X10*3/uL Basophils Absolute Auto 0.0 0.0-0.2 X10*3/uL NRBC Abs Auto 0.000 0.0-0.012 X10*3/uL Comprehensive Met. Panel Reviewed date:12/05/2023 09:01:57 AM Interpretation:Abnormal Performing Lab:[facility], [address] [place] [phone] Notes/Report: Sodium 144 135-145 mmol/L Potassium 4.0 3.3-5.1 mmol/L Chloride 109 96-108 mmol/L Carbon Dioxide 23 22-29 mmol/L Anion Gap 16 12-20 Blood Urea Nitrogen 13 9-16 mg/dL Creatinine 0.97 0.5-1.4 mg/dL Creatinine Clr Calc Pharmacy 79.1 Provided height and weight: 160.02 cm, 124.738 kg. eGFR (calculated from the MDRD study equation) and eCrCl (calculated from the Cockcroft-Gault equation) are based on different parameters and may not yield comparable results. If eCrCl result is absurd, please check patient's height/weight. Estimated Glomerular Filt Rate 59 NOTE: For -Greek individuals, multiply the result by 1.210. Chronic Kidney Disease: Estimated GFR < 60 mL/min/1.73m2 Severe Kidney Disease: Estimated GFR < 15 mL/min/1.73m2 Glucose Random 161 60-115 mg/dL Calcium 9.3 8.4-10.2 mg/dL Bilirubin Total 0.4 0.0-1.0 mg/dL Aspartate Amino Transferase 32 5-31 U/L Alanine Aminotransferase 33 0-31 U/L Total Protein 6.8 6.5-8.0 g/dL Albumin Level 4.1 3.5-5.0 g/dL Alkaline Phosphatase 114 39-117 U/L Lactic Acid Reviewed date:12/05/2023 09:01:58 AM Interpretation:Normal Performing Lab:[address] [phone] Notes/Report: Lactic Acid 1.5 0.5-2.0 mmol/L Lipase Reviewed date:12/05/2023 09:01:57 AM Interpretation:Normal Performing Lab:[address] [phone] Notes/Report: Lipase 19 8-78 U/L Urine Culture Reviewed date:12/05/2023 01:10:07 PM Interpretation:Abnormal Performing Lab:[address] [phone] Notes/Report: O:STRAGA Strep agalactiae (Gr p B) Urine Culture Quant Urine Culture > 100,000 cfu/mL Urine Culture Susc N/A Urine Culture Susceptibility not routinely performed on this isolate. Blood Culture (First) Reviewed date:12/10/2023 09:26:14 AM Interpretation:Negative Performing Lab:[address] [phone] Notes/Report: Blood Culture (First) No growth after 5 days. Blood Culture (Second) Reviewed date:12/10/2023 09:26:14 AM Interpretation:Negative Performing Lab:[address] [phone] Notes/Report: Blood Culture (Second) No growth after 5 days. UA ClnCatch+Micro w/rflx Cul t Reviewed date:12/05/2023 09:01:57 AM Interpretation:Abnormal Performing Lab:[facility], [address] [place] [phone] Notes/Report: Urine, Clean Catch Color Urine Yellow Appearance Urine Cloudy PH 5.5 5.0-9.0 Glucose Urine UA Negative Negative mg/dL Urine Blood Large (3+) Negative Specific [place] - Urine 1.010 1.005-1.025 Urine Protein Negative Neg-Trace mg/dL Urine Ketones Trace Negative mg/dL Nitrite Urine Negative Negative Leukocyte Esterase Urine Large (3+) Negative RBC Urine 11-20 0-2 /HPF WBC Urine >50 0-5 /HPF Squamous Epithelial Cell Urine 6-10 0-2 /HPF Bacteria Urine Trace None Seen Hyaline Casts Urine 0-2 0-2 /LPF CT abdomen pelvis wo con Reviewed date:12/06/2023 12:19:19 PM Interpretation:Abnormal Performing Lab: Notes/Report: [address] [address] [address] Scan Report Signed Patient: Luciana Walker MR#: [id number] [birth year] : 1960 Acct:[id number] Age/Sex: 62 / F ADM Date: 12/04/23 Loc: HO.ED Attending Dr: Ordering Physician: Odette Carmona MD Date of Service: 12/04/23 Procedure(s): CT abdomen pelvis wo IV con Accession Number(s): [id number] cc: Kvng Colón DO; Odette Carmona MD EXAMINATION: CT ABDOMEN AND PELVIS WITHOUT CONTRAST CLINICAL INFORMATION: Abdominal pain COMPARISON: CT abdomen pelvis on 03/28/2010 TECHNIQUE: Multidetector volumetric imaging was performed from the superior aspect of the liver through the pubic symphysis. Sagittal and coronal reformatted images were obtained on the technologist's workstation. This CT examination was performed using dose optimization techniques as appropriate, variously including the following: *Automated exposure control *Adjustment of mA and/or kV according to patient size (this includes techniques or standardized protocols for targeted exams where dose is matched to indication/reason for exam; i.e. extremities or head) *Use of iterative reconstruction technique DLP: 1120 mGy-cm FINDINGS: LUNG BASES: The visualized lung bases are unremarkable. LIVER, GALLBLADDER, AND BILIARY TREE: The liver is normal in size, shape, and attenuation. No focal hepatic lesion or biliary ductal dilatation is present. Prior cholecystectomy. PANCREAS: Unremarkable. SPLEEN: Unremarkable. ADRENAL GLANDS: Unremarkable. KIDNEYS AND URETERS: The bilateral kidneys are normal in size. There is no left hydronephrosis or renal calculi. There is mild left hydronephrosis and proximal hydroureter secondary to 2 adjacent obstructing calculi in the right proximal ureter measuring 0.3 and 0.4 cm. There is perinephric stranding surrounding the right kidney. BLADDER: Unremarkable. GASTROINTESTINAL TRACT: Moderate hiatal hernia. Small large bowel are otherwise normal in caliber. Colonic diverticulosis is noted. ABDOMINAL WALL: No significant hernia is appreciated. LYMPH NODES: Normal. VASCULAR: Mild atherosclerotic disease. PELVIC VISCERA: Unremarkable. OSSEOUS STRUCTURES: Unremarkable. CT/CT abdomen pelvis wo IV con IMPRESSION: 1. Mild right hydronephrosis and proximal hydroureter secondary to 2 adjacent obstructing calculi in the right proximal ureter measuring 0.3 and 0.4 cm. 2. Moderate hiatal hernia. Fleischner guidelines were followed. Dictated By: Raysa Go MD Signed By: <Electronically signed by Raysa Go MD in OV> 12/04/232202 DD/ 53 TD/TT: Linux Systems Engineer: ELIZABETH Urinalysis and Microscopic Reviewed date:12/22/2023 03:51:52 PM Interpretation:Abnormal Performing Lab:[address] [phone] Notes/Report: Color Urine Yellow Appearance Urine Clear PH 5.5 5.0-9.0 Glucose Urine UA Negative Negative mg/dL Urine Blood Negative Negative Specific [place] - Urine 1.020 1.005-1.025 Urine Protein Negative Neg-Trace mg/dL Urine Ketones Negative Negative mg/dL Nitrite Urine Negative Negative Leukocyte Esterase Urine Moderate (2+) Negative RBC Urine 0-2 0-2 /HPF WBC Urine 6-10 0-5 /HPF Squamous Epithelial Cell Urine 0-2 0-2 /HPF Bacteria Urine None Seen None Seen Hyaline Casts Urine 3-5 0-2 /LPF Liver Panel Reviewed date:12/22/2023 02:21:45 PM Interpretation:Abnormal Performing Lab:[facility], [address] [place] [phone] Notes/Report: Bilirubin Total 0.3 0.0-1.0 mg/dL Bilirubin Direct 0.1 0.0-0.5 mg/dL Aspartate Amino Transferase 24 5-31 U/L Alanine Aminotransferase 38 0-31 U/L Total Protein 6.6 6.5-8.0 g/dL Albumin Level 4.0 3.5-5.0 g/dL Alkaline Phosphatase 99 39-117 U/L Urine Culture Reviewed date:12/23/2023 10:48:19 AM Interpretation:Abnormal Performing Lab:[facility], [address] [place] [phone] Notes/Report: O:STRAGA Strep agalactiae (Gr p B) Urine Culture Quant Urine Culture 50,000 to 100,000 cfu/mL Urine Culture CATH BOILER WATER TESTER? Urine Culture Susceptibility not routinely performed on this isolate. Complete Blood Count Auto Di ff Reviewed date:12/22/2023 01:41:23 PM Interpretation:Abnormal Performing Lab:[facility], [address] [place] [phone] Notes/Report: White Blood Count 3.8 4.8-10.8 X10*3/uL Red Blood Count 4.66 4.20-5.50 X10*6/uL Hemoglobin 12.5 12.0-16.0 g/dl Hematocrit 40.6 37.0-47.0 % Mean Corpuscular Volume 87.1 80.0-98.0 fL Mean Corpuscular Hemoglobin 26.8 27.0-33.0 pg Mean Corpuscular HGB Conc 30.8 31.0-35.0 g/dl Red Cell Distribution Width 13.8 11.0-16.0 % Platelet Count 294 160-400 X10*3/uL Mean Platelet Volume 9.0 9.4-12.3 fL Neutrophils Percent Auto 48.2 45-73 % Imm Gran Pct Auto 0.3 0.0-0.4 % Lymphocytes Percent Auto 42.0 20-40 % Monocytes Percent Auto 7.4 2-11 % Eosinophils Percent Auto 1.8 0-4 % Basophils Percent Auto 0.3 0-2 % NRBC Pct Auto 0.0 0.0-0.2 /100WBC Neutrophils Absolute Auto 1.8 2.0-8.3 x10*3/uL Imm Gran Abs Auto 0.01 0.00-0.03 X10*3/uL Lymphocytes Absolute Auto 1.6 1.2-4.9 X10*3/uL Monocytes Absolute Auto 0.3 0.1-1.2 X10*3/uL Eosinophils Absolute Auto 0.1 0.0-0.4 X10*3/uL Basophils Absolute Auto 0.0 0.0-0.2 X10*3/uL NRBC Abs Auto 0.000 0.0-0.012 X10*3/uL Basic Metabolic Panel Reviewed date:12/22/2023 02:21:45 PM Interpretation:Abnormal Performing Lab:[address] [phone] Notes/Report: Sodium 140 135-145 mmol/L Potassium 4.5 3.3-5.1 mmol/L Chloride 105 96-108 mmol/L Carbon Dioxide 27 22-29 mmol/L Anion Gap 13 12-20 Blood Urea Nitrogen 11 9-16 mg/dL Creatinine 0.73 0.5-1.4 mg/dL Estimated Glomerular Filt Rate > 60 NOTE: For -Greek individuals, multiply the result by 1.210. Chronic Kidney Disease: Estimated GFR < 60 mL/min/1.73m2 Severe Kidney Disease: Estimated GFR < 15 mL/min/1.73m2 Glucose Random 150 60-115 mg/dL Calcium 9.4 8.4-10.2 mg/dL Urine Culture Reviewed date:01/08/2024 01:04:06 PM Interpretation:Abnormal Performing Lab:[facility], [address] [place] [phone] Notes/Report: O:STRAGA Strep agalactiae (Gr p B) Urine Culture Quant Urine Culture > 100,000 cfu/mL Urine Culture Susc N/A Urine Culture Susceptibility not routinely performed on this isolate. Complete Blood Count Auto Di ff Reviewed date:02/18/2024 01:52:34 PM Interpretation:Abnormal Performing Lab:[facility], [address] [place] [phone] Notes/Report: White Blood Count 3.5 4.8-10.8 X10*3/uL Red Blood Count 4.97 4.20-5.50 X10*6/uL Hemoglobin 13.4 12.0-16.0 g/dl Hematocrit 41.3 37.0-47.0 % Mean Corpuscular Volume 83.1 80.0-98.0 fL Mean Corpuscular Hemoglobin 27.0 27.0-33.0 pg Mean Corpuscular HGB Conc 32.4 31.0-35.0 g/dl Red Cell Distribution Width 14.5 11.0-16.0 % Platelet Count 274 160-400 X10*3/uL Mean Platelet Volume 9.5 9.4-12.3 fL Neutrophils Percent Auto 53.4 45-73 % Imm Gran Pct Auto 0.3 0.0-0.4 % Lymphocytes Percent Auto 36.8 20-40 % Monocytes Percent Auto 6.2 2-11 % Eosinophils Percent Auto 2.5 0-4 % Basophils Percent Auto 0.8 0-2 % NRBC Pct Auto 0.0 0.0-0.2 /100WBC Neutrophils Absolute Auto 1.9 2.0-8.3 x10*3/uL Imm Gran Abs Auto 0.01 0.00-0.03 X10*3/uL Lymphocytes Absolute Auto 1.3 1.2-4.9 X10*3/uL Monocytes Absolute Auto 0.2 0.1-1.2 X10*3/uL Eosinophils Absolute Auto 0.1 0.0-0.4 X10*3/uL Basophils Absolute Auto 0.0 0.0-0.2 X10*3/uL NRBC Abs Auto 0.000 0.0-0.012 X10*3/uL Urinalysis and Microscopic Reviewed date:02/18/2024 03:11:19 PM Interpretation:Abnormal Performing Lab:[facility], [address] [place] [phone] Notes/Report: Color Urine Yellow Appearance Urine Turbid PH 5.5 5.0-9.0 Glucose Urine UA Negative Negative mg/dL Urine Blood Negative Negative Specific [place] - Urine 1.020 1.005-1.025 Urine Protein Negative Neg-Trace mg/dL Urine Ketones Negative Negative mg/dL Nitrite Urine Negative Negative Leukocyte Esterase Urine Small (1+) Negative RBC Urine 0-2 0-2 /HPF WBC Urine 0-5 0-5 /HPF Squamous Epithelial Cell Urine 3-5 0-2 /HPF Bacteria Urine Trace None Seen Hyaline Casts Urine 0-2 0-2 /LPF Comprehensive [place]. Panel Fa st Reviewed date:02/18/2024 03:11:19 PM Interpretation:Abnormal Performing Lab:[facility], [address] [place] [phone] Notes/Report: Sodium 140 135-145 mmol/L Potassium 4.4 3.3-5.1 mmol/L Chloride 107 96-108 mmol/L Carbon Dioxide 25 22-29 mmol/L Anion Gap 12 12-20 Blood Urea Nitrogen 11 9-16 mg/dL Creatinine 0.71 0.5-1.4 mg/dL Estimated Glomerular Filt Rate > 60 NOTE: For -Greek individuals, multiply the result by 1.210. Chronic Kidney Disease: Estimated GFR < 60 mL/min/1.73m2 Severe Kidney Disease: Estimated GFR < 15 mL/min/1.73m2 Glucose Fasting 143 60-99 mg/dL A fasting glucose of 126 mg/dl or greater on more than one occasion is considered diagnostic of diabetes. Calcium 9.2 8.4-10.2 mg/dL Bilirubin Total 0.4 0.0-1.0 mg/dL Aspartate Amino Transferase 22 5-31 U/L Alanine Aminotransferase 32 0-31 U/L Total Protein 6.6 6.5-8.0 g/dL Albumin Level 4.1 3.5-5.0 g/dL Alkaline Phosphatase 100 39-117 U/L Lipid Panel Reviewed date:02/18/2024 03:11:19 PM Interpretation:Normal Performing Lab:[facility], [address] [place] [phone] Notes/Report: Triglycerides 88 <150 mg/dL Desirable Triglyceride: less than 150 mg/dL Borderline High Triglyceride 150-199 mg/dL High Triglyceride: 200-499 mg/dL Very High Triglyceride: greater than or equal to 5OO mg/dL Cholesterol 147 <200 mg/dL Desirable Cholesterol: less than 200 mg/dL Borderline High Cholesterol: 200-239 mg/dL High Cholesterol: greater than 239 mg/dL LDL Cholesterol Calculated 78 <100 mg/dL Desirable LDL: less than 100 mg/dL Near Optimal/Above Optimal LDL: 110-129 mg/dL Borderline High LDL: 130-159 mg/dL High LDL: 160-189 mg/dL Very High LDL: greater than or equal to 190 mg/dL HDL Cholesterol 52 >40 mg/dL Desirable HDL: greater than 40 mg/dL Note: This HDL assay may give artificially low results in patients with liver disease. Vitamin D 25-OH Total Reviewed date:02/18/2024 03:12:12 PM Interpretation:Abnormal Performing Lab:[facility], [address] [place] [phone] Notes/Report: Vitamin D 25-OH Total 21.7 >30 ng/mL Health Based Reference Values* < 20 ng/mL Deficient 20-30 ng/mL Insufficient > 30 ng/mL Sufficient *Bharathi SANTILLAN. N Engl J Med. 2007;357:266-280 Care must be taken in interpreting Vitamin D results from different laboratories and methodologies. Published data demonstrated that results from patients undergoing hemodialysis may show a negative bias when tested with various automated 25-OH vitamin D assays when compared to LC-MS/MS. When testing samples from patients whose predominant form of Vitamin D is Vitamin D2, such as patients receiving Vitamin D2 supplementation, results that are subtherapeutic should be confirmed with another method such as LC-MS/MS. Thyroid Stimulating Hormone Reviewed date:02/18/2024 03:11:19 PM Interpretation:Normal Performing Lab:[facility], [address] [place] [phone] Notes/Report: Thyroid Stimulating Hormone 1.03 0.32-4.0 uIU/mL TSH 3rd Generation ([facility]) Microalbumin, Random Reviewed date:02/18/2024 03:11:19 PM Interpretation:Normal Performing Lab:[facility], [address] [place] [phone] Notes/Report: Creatinine Urine 127.11 Microalbumin Urine 17.0 Microalbum/Creatinine Ratio Ur 13.3 <30 ug/mg cr Albumin/Creatinine Ratio Reference Ranges: Normal: < 30 ug/mg creatinine Microalbuminuria: 30 - 300 ug/mg creatinine Clinical Albuminuria: > 300 ug/mg creatinine Hemoglobin A1c Reviewed date:02/18/2024 03:11:54 PM Interpretation:Abnormal Performing Lab:[facility], [address] [place] [phone] Notes/Report: Hemoglobin A1c % 7.0 <6.0 % Hemoglobin A1C Reference Range Adults: 4.8 - 6.0 % Non diabetic: < 6.0 % Goal: < 7.0 % Additional Action Suggested: > 8.0 % Note: Hemoglobin A1c results are invalid for patients with abnormal amounts of HbF. Blood transfusions may impact the HbA1c concentration in the patient sample. Estimated Average Glucose 154 eAG = Estimated average glucose which is %A1C expressed as average glucose, using the formula of the T3P-Ehexukm Average Glucose study (ADAG), Diabetes Care, Vol.31,#8, Apr. 2007 US renal BI Reviewed date:03/10/2024 06:40:36 PM Interpretation:Normal Performing Lab: Notes/Report: [facility] [address] [place] [address] [place] [address] Ultrasound Report Signed Patient: Luciana Walker MR#: [id number] [birth year] : 1960 Acct:[id number] Age/Sex: 63 / F ADM Date: 02/27/24 [facility] Att[facility] Dr: Víctor Marte MD Ordering Physician: Víctor Marte MD Date of Service: 02/27/24 Procedure(s): US renal BI Accession Number(s): [id number] cc: Víctor Marte MD; Kvng Colón DO EXAMINATION: US RETROPERITONEAL LIMITED (RENAL ONLY) CLINICAL INFORMATION: Unspecified hydronephrosis. COMPARISON: CT abdomen and pelvis 12/04/2023. Ultrasound abdomen 03/25/2010. TECHNIQUE: Real-time imaging of the kidneys. FINDINGS: RIGHT KIDNEY: 13.5 x 5.2 x 6.5 cm (SAG x AP x TRV). The kidney is normal in size, contour, and echogenicity. Renal cortical thickness is normal. No calculi or focal parenchymal lesions. No hydronephrosis. The previously seen mild right-sided hydronephrosis secondary to obstructing ureteral calculi is no longer present. LEFT KIDNEY: 11.5 x 6.7 x 5.6 cm (SAG x AP x TRV). The kidney is normal in size, contour, and echogenicity. Renal cortical thickness is normal. No calculi or focal parenchymal lesions. No hydronephrosis. US/US renal BI IMPRESSION: Normal-appearing kidneys. Dictated By: Alejandro Nuñez MD Signed By: <Electronically signed by Alejandro Nuñez MD in [place]> 03/09/24 2301 DD/ 0842 TD/TT: Linux Systems Engineer: MARVIN Vitamin B12 and Folate Reviewed date:08/30/2024 02:47:20 PM Interpretation:Normal Performing Lab:[facility], [address] [place] [phone] Notes/Report: Vitamin B12 321 200-900 pg/mL NORMAL 200-900 PG/ML INDETERMINATE 160-199 PG/ML DEFICIENT < 160 PG/ML Folate 4.6 > or = 4.0 ng/mL Reference Values: > or = 4.0 ng/mL < 4.0 ng/mL suggests folate deficiency Methotrexate, aminopterin and folinic acid (leucovorin) are chemotherapeutic agents whose molecular structures are similar to folate; therefore, the Automotive Sales Manager folate assay cannot be used for patients using these drugs. Complete Blood Count Auto Di ff Reviewed date:08/30/2024 01:59:51 PM Interpretation:Abnormal Performing Lab:[facility], [address] [place] [phone] Notes/Report: White Blood Count 4.0 4.8-10.8 X10*3/uL Red Blood Count 4.78 4.20-5.50 X10*6/uL Hemoglobin 12.8 12.0-16.0 g/dl Hematocrit 41.0 37.0-47.0 % Mean Corpuscular Volume 85.8 80.0-98.0 fL Mean Corpuscular Hemoglobin 26.8 27.0-33.0 pg Mean Corpuscular HGB Conc 31.2 31.0-35.0 g/dl Red Cell Distribution Width 13.6 11.0-16.0 % Platelet Count 291 160-400 X10*3/uL Mean Platelet Volume 9.1 9.4-12.3 fL Neutrophils Percent Auto 60.5 45-73 % Imm Gran Pct Auto 0.2 0.0-0.4 % Lymphocytes Percent Auto 30.4 20-40 % Monocytes Percent Auto 6.2 2-11 % Eosinophils Percent Auto 2.0 0-4 % Basophils Percent Auto 0.7 0-2 % NRBC Pct Auto 0.0 0.0-0.2 /100WBC Neutrophils Absolute Auto 2.4 2.0-8.3 x10*3/uL Imm Gran Abs Auto 0.01 0.00-0.03 X10*3/uL Lymphocytes Absolute Auto 1.2 1.2-4.9 X10*3/uL Monocytes Absolute Auto 0.3 0.1-1.2 X10*3/uL Eosinophils Absolute Auto 0.1 0.0-0.4 X10*3/uL Basophils Absolute Auto 0.0 0.0-0.2 X10*3/uL NRBC Abs Auto 0.000 0.0-0.012 X10*3/uL Comprehensive [place]. Panel Fa st Reviewed date:08/30/2024 02:47:20 PM Interpretation:Abnormal Performing Lab:[facility], [address] [place] [phone] Notes/Report: Sodium 141 135-145 mmol/L Potassium 4.5 3.3-5.1 mmol/L Chloride 108 96-108 mmol/L Carbon Dioxide 27 22-29 mmol/L Anion Gap 11 12-20 Blood Urea Nitrogen 13 9-16 mg/dL Creatinine 0.68 0.5-1.4 mg/dL Estimated Glomerular Filt Rate > 60 Chronic Kidney Disease: Estimated GFR < 60 mL/min/1.73m2 Severe Kidney Disease: Estimated GFR < 15 mL/min/1.73m2 Glucose Fasting 99 60-99 mg/dL Calcium 8.8 8.4-10.2 mg/dL Bilirubin Total 0.3 0.0-1.0 mg/dL Aspartate Amino Transferase 29 5-31 U/L Alanine Aminotransferase 31 0-31 U/L Total Protein 6.4 6.5-8.0 g/dL Albumin Level 3.9 3.5-5.0 g/dL Alkaline Phosphatase 113 39-117 U/L Lipid Panel Reviewed date:08/30/2024 02:47:20 PM Interpretation:Normal Performing Lab:[facility], [address] [place] [phone] Notes/Report: Triglycerides 94 <150 mg/dL Desirable Triglyceride: less than 150 mg/dL Borderline High Triglyceride 150-199 mg/dL High Triglyceride: 200-499 mg/dL Very High Triglyceride: greater than or equal to 5OO mg/dL Cholesterol 126 <200 mg/dL Desirable Cholesterol: less than 200 mg/dL Borderline High Cholesterol: 200-239 mg/dL High Cholesterol: greater than 239 mg/dL LDL Cholesterol Calculated 64 <100 mg/dL Desirable LDL: less than 100 mg/dL Near Optimal/Above Optimal LDL: 110-129 mg/dL Borderline High LDL: 130-159 mg/dL High LDL: 160-189 mg/dL Very High LDL: greater than or equal to 190 mg/dL HDL Cholesterol 44 >40 mg/dL Desirable HDL: greater than 40 mg/dL Note: This HDL assay may give artificially low results in patients with liver disease. Thyroid Stimulating Hormone Reviewed date:08/30/2024 02:47:20 PM Interpretation:Normal Performing Lab:[facility], [address] [place] [phone] Notes/Report: Thyroid Stimulating Hormone 1.62 0.32-4.0 uIU/mL TSH 3rd Generation ([facility]) Microalbumin, Random Reviewed date:08/30/2024 02:47:20 PM Interpretation:Normal Performing Lab:[facility], [address] [place] [phone] Notes/Report: Creatinine Urine 211.24 Microalbumin Urine 17.0 Microalbum/Creatinine Ratio Ur 8.0 <30 ug/mg cr Albumin/Creatinine Ratio Reference Ranges: Normal: < 30 ug/mg creatinine Microalbuminuria: 30 - 300 ug/mg creatinine Clinical Albuminuria: > 300 ug/mg creatinine Hemoglobin A1c Reviewed date:08/30/2024 02:01:21 PM Interpretation:Normal Performing Lab:[facility], [address] [place] [phone] Notes/Report: Hemoglobin A1c % 5.7 <6.0 % Hemoglobin A1C Reference Range Adults: 4.8 - 6.0 % Non diabetic: < 6.0 % Goal: < 7.0 % Additional Action Suggested: > 8.0 % Note: Hemoglobin A1c results are invalid for patients with abnormal amounts of HbF. Blood transfusions may impact the HbA1c concentration in the patient sample. Estimated Average Glucose 117 eAG = Estimated average glucose which is %A1C expressed as average glucose, using the formula of the [id number] Average Glucose study (ADAG), Diabetes Care, Vol.31,#8, 2007 REASON FOR REFERRAL Reason Screening colonoscop y Diagnosis 1 Colon cancer screeni gloria (Z12.11) Referral Organization Kvng Piedra, FACP Referring Provider First Name Kvng Referring Provider Last Name Katarzyna Referring Provider Speciality Internal M edicine Referred Provider Jason Paula Referred Provider Specialty Gastroentero logy General Notes KeeMeagan 024 12:11:02 PM EST > referral faxed; specialist's office will call patient; patient aware., Meagan Sweet 08/06/2024 12:51:50 PM EST > Drs. Magallanes and Jeremy will not treat patient because she is established with Dr. Paula, [facility]. Patient aware. Referral to Dr. Paula initiated.Meagan Sweet 08/06/2024 12:58:01 PM EST > PLEASE CONTACT PATIENT TO SCHEDULE APPOINTMENT, APPOINTMENT AT ANY LOCATION WITH THIS PROVIDER, Thanks for your help!, Meagan Sweet 08/06/2024 12:58:51 PM EST > new referral faxed; specialist's office will contact patient., Meagan Sweet 08/13/2024 11:19:59 AM EST > referral re-faxed. Referral Priority Routine Referral Appointment Date 09/23/2024 MEDICATIONS Medication SIG (Take, Route, Frequency, Duration) Notes Start Date End Date Status Meloxicam 15 MG 1 tablet Orally Once a day Active Sertraline HCl 50 MG 1 tablet Orally Once a day Active Ozempic (0.25 or 0.5 MG/DOSE) 2 MG/3ML 1 mg Subcutaneous Once a week for 30 days 02/24/2024 Active Omeprazole 20 MG 1 capsule 30 minutes before morning meal Orally Once a day Active metFORMIN HCl ER 750 MG 2 tablets with e vening meal Orally Once a day Active Vitamin D 2000 UNIT 1 capsule Orally Onc e a day Active Gabapentin 300 MG 1 capsule Orally Thr ee times a day Active ProAir HFA 108 (90 Base) MCG/ACT 2 puffs as needed Inhalation every 4 hrs Active clonazePAM 1 MG 1 tablet at bedtime as needed Orally Once a day 07/30/2024 Active Furosemide 20 MG 1 tablet Orally Once a day Active Atorvastatin Calcium 20 MG 1 tablet Orally Once a day Active IMMUNIZATIONS Vaccine Route Administration Date Status Comme nts Influenza Quad IM Intramuscular 06/05/2016 Administered Influenza Quad IM Intramuscular 06/18/2017 Administered PPD ID Intradermal 10/15/2017 Administered Influenza Quad Unknown 07/02/2021 Administered Influenza Quad Unknown 06/20/2020 Administered COVID-19 Pfizer BioNTech Unknown 01/02/2022 Administere d Influenza Unknown 06/05/2010 Administered COVID-19 Pfizer BioNTech Unknown 09/24/2020 Administere d COVID-19 Pfizer BioNTech Unknown 10/15/2020 Administere d Influenza Quad Unknown 05/03/2018 Administered Influenza Unknown 07/05/2014 Administered COVID-19 Pfizer BioNTech Unknown 07/02/2021 Administere d Pneumococcal - PPSV23 Unknown 08/28/2021 Administered COVID-19 Pfizer Bivalent Unknown 06/19/2022 Administere d Influenza Quad Unknown 06/19/2022 Administered Shingrix Unknown 06/21/2024 Administered flu vaccine Unknown 06/21/2024 Administered SOCIAL HISTORY Tobacco Use: Social History Observation Description Date Details (start date - stop date) Never Smoker NA - NA Sex Assigned At : Social History Observation Description Sex Assigned At Unknown Tobacco Use/Smoking Question Answer Notes Patient is a nonsmoker Additional Findings: Tobacco Non-User Cu rrent non-smoker, currently using no form of tobacco Alcohol Screen Question Answer Notes Did you have a drink contain ing alcohol in the past year? Yes How often did you have a dri nk containing alcohol in the past year? Monthly or less (1 point) How many drinks did you have on a typical day when you were drinking in the past year? 1 or 2 drinks (0 point) How often did you have 6 or more drinks on one occasion in the past year? Never (0 point) Points 1 Interpretation Negative PROBLEMS Problem Type ICD Code Onset Dates Problem Status W/U Status Risk SNOMED Code Notes Problem Essential hypertension (I10) Active confirmed 54069805 Problem Primary osteoarthritis involving multiple joints (M15.0) Active confirmed 691207996 Problem Gastroesophageal reflux disease without esophagitis (K21.9) Active confirmed 680178945 Problem Renal lithiasis (N20.0) Active confirmed 10699570 Problem Reactive depression (F32.9) Active confirmed 20057079 Problem MENDEZ (dyspnea on exertion) (R06.09) Active confirmed 43230113 Problem EBER (obstructive sleep apnea) (G47.33) Active confirmed 07977855 Problem Type 2 diabetes mellitus without complication, without long-term current use of insulin (E11.9) Active confirmed 301073874 Problem Osteoarthritis of right knee, unspecified osteoarthritis type (M17.9) Active confirmed 611717061 Problem Morbid obesity (E66.01) Active confirmed 717767167 Problem Bilateral low back pain without sciatica, unspecified chronicity (M54.5) Active confirmed 504630974 VITAL SIGNS Blood pressure diastolic 72 mm Hg 09/01/2024 Height 64 in 09/01/2024 Blood pressure systolic 122 mm Hg 09/01/2024 Weight 242 lbs 09/01/2024 BMI 41.53 kg/m2 09/01/2024 Encounters Encounter Location Date Provider Diagnosis Kvng Colón DO, [address] [id number] 09/09/2023 Kvng Colón DO, [address] [id number] 09/16/2023 Kvng Colón DO, [address] [id number] 09/23/2023 Kvng Colón Type 2 diabetes obdulio itus without complication, without long-term current use of insulin E11.9 ; Essential hypertension I10 ; EBER (obstructive sleep apnea) G47.33 ; Gastroesophageal reflux disease without esophagitis K21.9 ; Primary osteoarthritis involving multiple joints M15.0 ; Reactive depression F32.9 and Osteoarthritis of right knee, unspecified osteoarthritis type M17.9 Kvng Colón DO, [address] [id number] 10/22/2023 Kvng Colón Essential hypertensi on I10 ; Type 2 diabetes mellitus without complication, without long-term current use of insulin E11.9 ; Gastroesophageal reflux disease without esophagitis K21.9 ; Osteoarthritis of right knee, unspecified osteoarthritis type M17.9 ; Primary osteoarthritis involving multiple joints M15.0 ; Reactive depression F32.9 and EBER (obstructive sleep apnea) G47.33 Kvng Colón DO, [address] [id number] 01/20/2024 Kvng Colón Essential hypertensi on I10 ; Type 2 diabetes mellitus without complication, without long-term current use of insulin E11.9 ; Renal lithiasis N20.0 ; Reactive depression F32.9 ; EBER (obstructive sleep apnea) G47.33 ; Osteoarthritis of right knee, unspecified osteoarthritis type M17.9 ; Gastroesophageal reflux disease without esophagitis K21.9 and Primary osteoarthritis involving multiple joints M15.0 vKng Colón DO, [facility] [address] [place], [place] [id number] 05/25/2024 Kvng Colón DO, [address] [id number] 06/02/2024 Kvng Colón Morbid obesity E66.0 1 ; Type 2 diabetes mellitus without complication, without long-term current use of insulin E11.9 ; Essential hypertension I10 ; Reactive depression F32.9 ; Gastroesophageal reflux disease without esophagitis K21.9 ; Osteoarthritis of right knee, unspecified osteoarthritis type M17.9 ; Primary osteoarthritis involving multiple joints M15.0 and EBER (obstructive sleep apnea) G47.33 Kvng Colón DO, [facility] [address] [place], [place] [id number] 09/01/2024 Kvng Colón Type 2 diabetes obdulio itus without complication, without long-term current use of insulin E11.9 ; Essential hypertension I10 ; Reactive depression F32.9 ; Gastroesophageal reflux disease without esophagitis K21.9 ; Osteoarthritis of right knee, unspecified osteoarthritis type M17.9 ; Primary osteoarthritis involving multiple joints M15.0 and EBER (obstructive sleep apnea) G47.33 Kvng Colón DO, [facility] [address] [place], [place] [id number] 06/23/2024 Kvng Colón DO, [address] [id number] 11/12/2023 Kvng Colón EBER (obstructive sle ep apnea) G47.33 and Type 2 diabetes mellitus without complication, without long-term current use of insulin E11.9 Kvng Colón DO, [facility] [address] [place], [place] [id number] 11/17/2023 Kvng Colón DO, [address] [id number] 12/03/2023 Kvng Colón DO, [facility] [address] [place], [place] [id number] 12/09/2023 Kvng Colón Type 2 diabetes obdulio itus without complication, without long-term current use of insulin E11.9 Kvng Colón DO, [facility] [address] [place], [place] [id number] 12/15/2023 Kvng Colón EBER (obstructive sle ep apnea) G47.33 Kvng Colón DO, [address] [id number] 12/22/2023 Kvng Colón Renal lithiasis N20. 0 Kvng Colón DO, [address] [id number] 02/20/2024 Kvng Colón DO, [address] [id number] 02/24/2024 Kvng Colón DO, [address] [id number] 03/01/2024 Kvng Colón DO, [address] [id number] 03/17/2024 Kvng Colón Reactive depression F32.9 Kvng Colón DO, [address] [id number] 04/21/2024 Kvng Colón Reactive depression F32.9 Kvng Colón DO, [address] [id number] 04/28/2024 Kvng Colón DO, [address] [id number] 05/04/2024 Kvng Colón DO, [address] [id number] 05/19/2024 Kvng Colón Osteoarthritis of ri ght knee, unspecified osteoarthritis type M17.9 Kvng Colón DO, [address] [id number] 07/30/2024 Kvng Colón Type 2 diabetes obdulio itus without complication, without long-term current use of insulin E11.9 ; Reactive depression F32.9 ; Morbid obesity E66.01 and Primary osteoarthritis involving multiple joints M15.0 Kvng Colón DO, [address] [id number] 07/30/2024 Kvng Colón DO, [address] [id number] 08/23/2024 Kvng Colón Fatigue, unspecified type R53.83 Kvng Colón DO, [address] [id number] 02/18/2024 Kvng Colón Reactive depression F32.9 ; Essential hypertension I10 ; Gastroesophageal reflux disease without esophagitis K21.9 ; Osteoarthritis of right knee, unspecified osteoarthritis type M17.9 ; Type 2 diabetes mellitus without complication, without long-term current use of insulin E11.9 ; Primary osteoarthritis involving multiple joints M15.0 and EBER (obstructive sleep apnea) G47.33 ASSESSMENTS Encounter Date Diagnosis Assessment Notes Treatment Notes Treatment Clinical Notes 09/23/2023 Essential hypertensi on (ICD-10 - I10) 09/23/2023 Type 2 diabetes mellitus without complication, without long-term current use of insulin (ICD-10 - E11.9) 10/22/2023 Essential hypertensi on (ICD-10 - I10) Low salt diet 10/22/2023 Type 2 diabetes mellitus without complication, without long-term current use of insulin (ICD-10 - E11.9) 01/20/2024 Essential hypertensi on (ICD-10 - I10) 01/20/2024 Type 2 diabetes mellitus without complication, without long-term current use of insulin (ICD-10 - E11.9) 06/02/2024 Type 2 diabetes mellitus without complication, without long-term current use of insulin (ICD-10 - E11.9) 06/02/2024 Morbid obesity (ICD- 10 - E66.01) 09/01/2024 Essential hypertensi on (ICD-10 - I10) 09/01/2024 Type 2 diabetes mellitus without complication, without long-term current use of insulin (ICD-10 - E11.9) 11/12/2023 EBER (obstructive sle ep apnea) (ICD-10 - G47.33) 12/09/2023 Type 2 diabetes mellitus without complication, without long-term current use of insulin (ICD-10 - E11.9) 12/15/2023 EBER (obstructive sle ep apnea) (ICD-10 - G47.33) 12/22/2023 Renal lithiasis (ICD-10 - N20.0) 03/17/2024 Reactive depression (ICD-10 - F32.9) 04/21/2024 Reactive depression (ICD-10 - F32.9) 05/19/2024 Osteoarthritis of right knee, unspecified osteoarthritis type (ICD-10 - M17.9) 07/30/2024 Type 2 diabetes mellitus without complication, without long-term current use of insulin (ICD-10 - E11.9) 08/23/2024 Fatigue, unspecified type (ICD-10 - R53.83) 02/18/2024 Essential hypertensi on (ICD-10 - I10) 02/18/2024 Reactive depression (ICD-10 - F32.9) 09/23/2023 EBER (obstructive sle ep apnea) (ICD-10 - G47.33) 10/22/2023 Gastroesophageal reflux disease without esophagitis (ICD-10 - K21.9) 01/20/2024 Renal lithiasis (ICD-10 - N20.0) Keep well hydrated. Follow up with Urology 06/02/2024 Essential hypertensi on (ICD-10 - I10) 09/01/2024 Reactive depression (ICD-10 - F32.9) 11/12/2023 Type 2 diabetes mellitus without complication, without long-term current use of insulin (ICD-10 - E11.9) 07/30/2024 Reactive depression (ICD-10 - F32.9) 02/18/2024 Gastroesophageal reflux disease without esophagitis (ICD-10 - K21.9) 09/23/2023 Gastroesophageal reflux disease without esophagitis (ICD-10 - K21.9) 10/22/2023 Osteoarthritis of right knee, unspecified osteoarthritis type (ICD-10 - M17.9) 01/20/2024 Reactive depression (ICD-10 - F32.9) 06/02/2024 Reactive depression (ICD-10 - F32.9) 09/01/2024 Gastroesophageal reflux disease without esophagitis (ICD-10 - K21.9) 07/30/2024 Morbid obesity (ICD- 10 - E66.01) 02/18/2024 Osteoarthritis of right knee, unspecified osteoarthritis type (ICD-10 - M17.9) 09/23/2023 Primary osteoarthrit is involving multiple joints (ICD-10 - M15.0) 10/22/2023 Primary osteoarthrit is involving multiple joints (ICD-10 - M15.0) 01/20/2024 EBER (obstructive sle ep apnea) (ICD-10 - G47.33) 06/02/2024 Gastroesophageal reflux disease without esophagitis (ICD-10 - K21.9) 09/01/2024 Osteoarthritis of right knee, unspecified osteoarthritis type (ICD-10 - M17.9) 07/30/2024 Primary osteoarthrit is involving multiple joints (ICD-10 - M15.0) 02/18/2024 Type 2 diabetes mellitus without complication, without long-term current use of insulin (ICD-10 - E11.9) Check lab work as previously ordered 09/23/2023 Reactive depression (ICD-10 - F32.9) 10/22/2023 Reactive depression (ICD-10 - F32.9) 01/20/2024 Osteoarthritis of right knee, unspecified osteoarthritis type (ICD-10 - M17.9) Follow up with Orthopedics 06/02/2024 Osteoarthritis of right knee, unspecified osteoarthritis type (ICD-10 - M17.9) 09/01/2024 Primary osteoarthrit is involving multiple joints (ICD-10 - M15.0) Begin a multivitamin once a day 02/18/2024 Primary osteoarthrit is involving multiple joints (ICD-10 - M15.0) 09/23/2023 Osteoarthritis of right knee, unspecified osteoarthritis type (ICD-10 - M17.9) 10/22/2023 EBER (obstructive sle ep apnea) (ICD-10 - G47.33) 01/20/2024 Gastroesophageal reflux disease without esophagitis (ICD-10 - K21.9) 06/02/2024 Primary osteoarthrit is involving multiple joints (ICD-10 - M15.0) 09/01/2024 EBER (obstructive sle ep apnea) (ICD-10 - G47.33) 02/18/2024 EBER (obstructive sle ep apnea) (ICD-10 - G47.33) 01/20/2024 Primary osteoarthrit is involving multiple joints (ICD-10 - M15.0) 06/02/2024 EBER (obstructive sle ep apnea) (ICD-10 - G47.33) PLAN OF TREATMENT Pending Test Test Name Order Date BONE DENSITY DEXA 07/30/2024 Next Appt Details Provider Name:Kvng kendall, 12/01/2024 11:00:00 AM, [address] [place] [address], [place], [place], [phone], Insurance Providers Payer Name Payer Address Payer Phone Subscriber Number Group Number Insured Name Patient Relationship to Insured Coverage Start Date Coverage End Date [address] [phone] [id number] Luciana Walker Self - patient is the insured [facility] [address] [place] [address] [id number] Denise Luciana Self - patient is the insured MEDICAL (GENERAL) HISTORY Medical History History ICD Code osteoarthritis gastroesophageal reflux disease (GERD) depression anxiety obesity obstructive sleep apnea on CPAP vitamin D deficiency Essential hypertension I10 Type 2 diabetes mellitus wit hout complication, without long-term current use of insulin E11.9 Surgical History Surgery Date(Month/Year) wisdom teeth extraction section cholecystectomy dilatation and curettage cervical discectomy 06/2022 right knee replacement 10/2023
--- OUTSIDE RECORDS SUMMARY | 2024-09-01 14:54 | XMS_ITS | Patient Health Record ---
Author Organization [facility] Address [address] [place] [address] Care Team Providers Care Theatre Manager Name Role Phone Kvng Colón DO Primary Care Provider Unavail arthur Magallanes Jr, Kolby Unavailable REASON FOR REFERRAL No Information SOCIAL HISTORY Sex Assigned At : Social History Observation Description Sex Assigned At Unknown Encounters Encounter Location Date Provider Diagnosis [facility] [address] [place] [phone] 08/06/2024 Kolby Magallanes Jr PLAN OF TREATMENT No Information Insurance Providers Payer Name Payer Address Payer Phone Subscriber Number Group Number Insured Name Patient Relationship to Insured Coverage Start Date Coverage End Date [facility] [address] [place] [address] [phone] [id number] JUICE LYNCH Self - patient is the insured
--- OUTSIDE RECORDS SUMMARY | 2024-09-01 14:54 | XMS_ITS ---
Author Organization Kvng Colón DO, FACP Address [address] [place], [place] [id number] Care Team Providers Care Superintendent Container Terminal Name Role Phone Kvng Colón Primary Care Provider ALLERGIES Allergen (clinical drug ingredient) Drug/Non Drug Allergy documented on EMR Reaction Allergy Type Onset Date Status sulfa urticaria Drug Allergy Active REASON FOR VISIT 3 month f/u, Follow up Type 2 diabetes mellitus without complication, without long-term current useof insulin MEDICATIONS Medication SIG (Take, Route, Frequency, Duration) Notes Start Date End Date Status Meloxicam 15 MG 1 tablet Orally Once a day Active Omeprazole 20 MG 1 capsule 30 minutes before morning meal Orally Once a day Active Vitamin D 2000 UNIT 1 capsule Orally Onc e a day Active ProAir HFA 108 (90 Base) MCG/ACT 2 puffs as needed Inhalation every 4 hrs Active Furosemide 20 MG 1 tablet Orally Once a day Active Ozempic (0.25 or 0.5 MG/DOSE) 2 MG/3ML 1 mg Subcutaneous Once a week for 30 days 02/24/2024 Active metFORMIN HCl ER 750 MG 2 tablets with e vening meal Orally Once a day Active Gabapentin 300 MG 1 capsule Orally Thr ee times a day Active clonazePAM 1 MG 1 tablet at bedtime as needed Orally Once a day 07/30/2024 Active Atorvastatin Calcium 20 MG 1 tablet Orally Once a day Active Sertraline HCl 50 MG 1 tablet Orally Once a day Active SOCIAL HISTORY Tobacco Use: Social History Observation [...] Never (0 point) Points 1 Interpretation Negative VITAL SIGNS BMI 41.53 kg/m2 09/01/2024 Blood pressure systolic 122 mm Hg 09/01/20 24 Blood pressure diastolic 72 mm Hg 024 Height 64 in 09/01/2024 Weight 242 lbs 09/01/2024 Encounters Encounter Location Date Provider Diagnosis Kvng Colón DO, [address] [phone] 09/01/2024 Kvng Colón Type 2 diabetes obdulio [...] Assessment Notes Treatment Notes Treatment Clinical Notes 09/01/2024 Type 2 diabetes mellitus without complication, without long-term current use of insulin (ICD-10 - E11.9) 09/01/2024 Essential hypertensi on (ICD-10 - I10) 09/01/2024 Reactive depression (ICD-10 - F32.9) 09/01/2024 Gastroesophageal reflux disease without esophagitis (ICD-10 - K21.9) 09/01/2024 Osteoarthritis of right knee, unspecified osteoarthritis type (ICD-10 - M17.9) 09/01/2024 Primary osteoarthrit is involving multiple joints (ICD-10 - M15.0) Begin a multivitamin once a day 09/01/2024 EBER (obstructive sle ep apnea) (ICD-10 - G47.33) PLAN OF TREATMENT Medication Medication Name Sig Start Date Stop Date Notes Meloxicam 15 MG 1 tablet Orally Once a day Omeprazole 20 MG 1 capsule 30 minutes before morning meal Orally Once a day Vitamin D 2000 UNIT 1 capsule Orally Once a day ProAir HFA 108 (90 Base) MCG/ACT 2 puffs as needed Inhalation every 4 hrs Furosemide 20 MG 1 tablet Orally Once a day Ozempic (0.25 or 0.5 MG/DOSE ) 2 MG/3ML 1 mg Subcutaneous Once a week for 30 days 02/24/2024 metFORMIN HCl ER 750 MG 2 tablets with e vening meal Orally Once a day Gabapentin 300 MG 1 capsule Orally Thr ee times a day clonazePAM 1 MG 1 tablet at bedtime as needed Orally Once a day 07/30/2024 Atorvastatin Calcium 20 MG 1 tablet Orally Once a day Sertraline HCl 50 MG 1 tablet Orally Once a day Treatment Notes Assessment Notes Primary osteoarthritis involving multipl e joints Begin a multivitamin once a day Next Appt Details Follow Up: 3 Months, Reason: follow up visit Provider Name:Kvng Heidy kendall, 12/01/2024 11:00:00 AM, [address] [place] [address], [phone], Progress Notes * Examination Category Sub-Category Detail Notes General Examination GENERAL APPEARANCE: in no ac [place] distress, well developed, well nourished HEAD: normocephalic, atrau matic HEART: no murmurs, regular rate and rhythm, S1, S2 normal LUNGS: clear to auscultatio n bilaterally ABDOMEN: normal, bowel sounds present, soft, nontender, nondistended SKIN: warm and dry EXTREMITIES: no edema PSYCH: alert, oriented, cog nitive function intact, less?anxious appearing, mood less depressed
--- OUTSIDE RECORDS SUMMARY | 2024-09-01 14:55 | XMS_ITS | Continuity of Care Document ---
Author Organization [facility] Address [address] [place] [address] Phone [phone] Social History Type Date Description Comments Sex Unknown Medications Active Medications SIG Qnty Indications Ordering Provider Date Metformin HCL SU374rr Tablets ER 24HR Take 1 Tablet By Mouth Twice A Day 180tabs Devaughn Gandhi M.D. 06/18/2022 Medical Devices Description No Information Available Encounters Description No Information Available Assessments Description No Information Available Plan of Treatment No Information Available Functional Status Description No Information Available Mental Status Description No Information Available Referrals Description No Information Available
--- OUTSIDE RECORDS SUMMARY | 2024-09-01 14:55 | XMS_ITS | Patient Health Record ---
Author Organization [facility] Address [address] [place] [address] Care Team Providers Care Residential Care Facility Manager Name Role Phone Katarzyna Calderon Primary Care Provider Unavailabl e ALLERGIES Allergen (clinical drug ingredient) Drug/Non Drug Allergy documented on EMR Reaction Allergy Type Onset Date Status Substance with sulfonamide structure and antibacterial mechanism of action (substance) Sulfa Antibiotics urticaria Drug Allergy Active REASON FOR REFERRAL No Information MEDICATIONS Medication SIG (Take, Route, Frequency, Duration) Notes Start Date End Date Status Furosemide 20 MG 1 tablet Orally Once a day Active Vitamin D 50 MCG (1999) 1 capsule Ora lly Once a day Active Venlafaxine HCl ER 225 MG 1 tablet with food Orally Once a day Active Diclofenac Sodium 75 MG 1 tablet Orally Twice a day Active Terbinafine HCl 250 MG 1 tablet Orally O nce a day for 90 days 05/14/2021 Active Omeprazole 20 MG 1 capsule 30 minutes before morning meal Orally Once a day Active ProAir HFA 108 (90 Base) MCG/ACT 1 puff as needed Inhalation every 4 hrs Active Zolpidem Tartrate 5 MG 1 tablet at bedti ok Orally Once a day Active PROBLEMS Problem Type ICD Code Onset Dates Problem Status W/U Status Risk SNOMED Code Notes Problem Congenital metatarsus adductus, 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 95972366348657856 Problem Congenital metatarsus adductus, 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) Active confirmed [id number] PLAN OF TREATMENT Pending Test Test Name Order Date Hepatic Function Panel (7) 05/14/2021 Insurance Providers Payer Name Payer Address Payer Phone Subscriber Number Group Number Insured Name Patient Relationship to Insured Coverage Start Date Coverage End Date [facility] [address] [place] [phone] [id number] Luciana Walker Self - patient is the insured MEDICAL (GENERAL) HISTORY Medical History History ICD Code GERD Osteoarthritits Depression Anxiety Obesity Obstructive sleep apnea on CPAP Vitamin D Deficiency HTN diabetes mellitus Surgical History Surgery Date(Month/Year) knee surgery
--- OUTSIDE RECORDS SUMMARY | 2024-09-01 14:55 | XMS_ITS | Data Portability ---
Author Organization [facility] [address] Address [address] [place] [address] Care Team Providers Care Side Guider Name Role Phone MARIA C ACHARYA Primary Care Provider Assessment No assessment recorded. Plan of Treatment Reminders Order Date Submit Date Provider Last Modified By Organization Details Last Modified Time Details Appointments None recorded. Lab None recorded. 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 Surgeries None recorded. Imaging None recorded. Medication Orders None recorded. Patient TargetsNo targets recorded. 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 Medical Equipment None Reported. Allergies Allergen ID Allergen Name Allergen Category Reaction Reaction Severity Criticality Documentation Date Start Date Code Code System Note Provider Name and Address Organization Details Recorded Time 410037 Substance with sulfonami de structure and antibacte rial mechanism of action (substanc e) medicatio n Not available Not available Not available 05/04/2023 06605 8003 SNOMED OLGA Uribe - [facility] 3 10:07:21 Medications Name Sig Start Date Stop Date Status Note LastModified by Organization Details LastModified Time venlafaxine ER 75 mg capsule,ext ended release 24 hr TAKE 3 CAPSULES BY MOUTH EVERY DAY WITH FOOD active Not Available Not Available No t Available atorvastati n 20 mg tablet TAKE 1 TABLET BY MOUTH EVERY DAY FOR 90 DAYS active Not Available Not Available No t Available atorvastati n 10 mg tablet TAKE 1 TABLET BY MOUTH EVERY DAY 05/04 completed Not Available Not Available Not Available tizanidine 4 mg tablet TAKE 1 TABLET BY MOUTH 3 TIMES A DAY FOR 14 DAYS. NOT TO EXCEED 3 DOSES/DAY . 05/04 completed Not Available Not Available Not Available hydrocodone 5 mg-acetamin ophen 325 mg tablet TAKE 1 TABLET BY MOUTH EVERY 6 HOURS NEEDED FOR SEVERE PAIN FOR 7 DAYS. MAX 8 TABLETS/D AY. 05/04 completed Not Available Not Available Not Available clonazepam 1 mg tablet TAKE 1 TABLET BY MOUTH EVERY DAY AT BEDTIME NEEDED FOR 30 DAYS active Not Available Not Available No t Available gabapentin 300 mg capsule TAKE 1 CAPSULE BY MOUTH TWICE A DAY FOR 90 DAYS active Not Available Not Available No t Available diclofenac sodium 75 mg tablet,shantal yed release TAKE 1 TABLET BY MOUTH TWICE A DAY NEEDED FOR 90 DAYS active Not Available Not Available No t Available scopolamine 1 mg over 3 days transdermal patch APPLY 1 PATCH TO SKIN BEHIND EAR NEEDED TRANSDERM ALLY EVERY 72 HOURS X30 DAYS 05/04 completed Not Available Not Available Not Available metformin ER 750 mg tablet,exte nded release 24 hr TAKE 3 TABLETS BY MOUTH WITH EVENING MEAL ONCE A DAY 30 DAYS active Not Available Not Available No t Available nitrofurant oin monohydrate /macrocryst als 100 mg capsule TAKE 1 CAPSULE BY MOUTH TWICE A DAY WITH FOOD FOR 7 DAYS 05/04 completed Not Available Not Available Not Available Paxlovid 300 mg (150 mg x 2)-100 mg tablets in a dose pack TAKE 3 TABLETS ORALLY TWICE A DAY 5 DAY(S) 05/04 completed Not Available Not Available Not Available Vitals Date Recorded Body weight Body mass index (BMI) Body height Respiratory rate Body temperature Oxygen saturation Oxygen saturation in Arterial blood by Pulse oximetry Heart rate Systolic blood pressure Diastolic blood pressure Provider Name and Address Organization Details Last Updated DateTime 3 095502. 94 g 43.6 kg/m2 167.64 cm 20 /min 97.8 [degF] 97 % 97 % 80 /min 134 mm[Hg] 89 mm[Hg] Hallie West PA - [facility] 3 10:10:00 Social History Question Answer Notes LastModified by Organizat ion Details LastModified Time Tobacco Smoking Status Never Smoker Hallie cai PA - [facility] 05/04/2023 10:08:45 What Is Your Level Of Alcohol Consumption? None Information not available 05/04/2023 Have You Had Direct Contact, Or Contact During Intimacy, With Monkeypox Rash, Scabs, Or Body Fluids From A Person With Monkeypox? No Information not available 05/04/2023 Do You Use Any Illicit Or Recreational Drugs? No Information not available 05/04/2023 Have You Recently Traveled Abroad? No Information not available 05/04/2023 Do You Or Have You Ever Used Any Other Forms Of Tobacco Or Nicotine? No Information not available 05/04/2023 Sex: Unknown Functional Status None recorded. Mental Status None recorded. Family History Relationship Description Onset Age of this Age Resolved Age Notes LastModified by Organization Details LastModified Time Father No current problems or disability Not available 05/04 10:08:36 Mother No current problems or disability Not available 05/04 10:08:37 Medical History No medical history recorded. Gynecological History Statement/Question Response Is there any chance of ? No LMP N/A Obstetrics History GPAL:G 0 P 0 0 0 0 Immunizations Vaccine Type Date Status Note Provider Nam e and Address Organization Details Recorded Time Influenza, split virus, quadrivalent, preservative 6 completed Hallie cai PA - [facility] 05/04/2023 10:07:26 Influenza, split virus, quadrivalent, preservative 7 completed Hallie Jenna null, PA - [facility] 05/04/2023 10:07:26 Influenza, MDCK, quadrivalent, PF 2 completed Hallie Jenna null, PA - [facility] 05/04/2023 10:07:26 COVID-19, mRNA, LNP-S, PF, 30 mcg/0.3 mL dose 1 completed Hallie Jenna null, PA - [facility] 05/04/2023 10:07:26 COVID-19, mRNA, LNP-S, PF, 30 mcg/0.3 mL dose 1 completed Hallie Jenna null, PA - [facility] 05/04/2023 10:07:26 COVID-19, mRNA, LNP-S, PF, 30 mcg/0.3 mL dose 1 completed Hallie [place] null, PA - [facility] 05/04/2023 10:07:26 COVID-19, mRNA, LNP-S, PF, 30 mcg/0.3 mL dose, arlen-sucrose 2 completed Hallie [place] null, PA - [facility] 05/04/2023 10:07:26 COVID-19, mRNA, LNP-S, bivalent, PF, 30 mcg/0.3 mL dose 2 completed Hallie [place] null, PA - [facility] 05/04/2023 10:07:26 pneumococcal polysaccharide PPV23 1 completed Hallie [place] null, PA - [facility] 05/04/2023 10:07:26 Influenza, split virus, trivalent, preservative 0 completed Hallie Jenna null, PA - [facility] 05/04/2023 10:07:26 Influenza, split virus, trivalent, preservative 4 completed Hallie Jenna null, PA - [facility] 05/04/2023 10:07:26 Influenza, split virus, quadrivalent, PF 8 completed Hallie Jenna null, PA - [facility] 05/04/2023 10:07:26 Influenza, split virus, quadrivalent, PF 0 completed Hallie Jenna null, PA - [facility] 05/04/2023 10:07:26 Influenza, split virus, quadrivalent, PF 1 completed Hallie Jenna null, PA - [facility] 05/04/2023 10:07:26 Past Encounters Encounter ID Performer Location Encounter Start Date Encounter Closed Date Diagnosis/Indication Diagnosis SNOMED-CT Code Diagnosis ICD10 Code [id number] [address] [facility] [address] [place] [address] 09/04/2018 08:28:53 09/04/2018 09:15:19 [id number] [address] [place] [address] 11/08/2017 14:51:45 11/08/2017 15:52:09 [id number] [place] [address] [place] [address] 05/04/2023 09:47:30 05/04/2023 10:26:26 Pain of toe of right foot [id number] 40474 M79.674 Health Concerns Section Related Observation LastModified by Organization Detai ls LastModified Time None Recorded Concern Status LastModified by Organization Details LastModified Time None Recorded Advance Directives Directive None Recorded Payers Encounter Date Sequence Insurance Name Policy Number Policy Carreon Covered Member ID Carreon Member ID Guarantor Name 11/08/2017 1 [facility] Luciana Walker [id number] Luciana Walker 05/04/2023 1 [facility] [id number] Luciana A Denise [id number] Luciana Walker Notes Date Note Type Note Provider Name and Address Organization Details Recorded Time 05/04/2023 text/html ToesReported bypatient.Notes:62 yo female c/o R toe painbanged toe under dressed and ripped toenail partially off+ bleedingminimal swelling+ pain - no pain with ambulation only when touching itno bruisingno redness Ron Tabit, DO [address] [place], [address], PA - [facility] 05/04/2023 10:28:24 OBGyn Episode No OBEpisode recorded.
== END 2024-08-30 10:58 | disposition home or self-care (01) ==
LOC: HO.HMGCLDS 10:57
PROVIDERS: PCP Internal Medicine; Visit Provider Internal Medicine
DX: E66.01 Morbid (severe) obesity due to excess calories (principal); I10 Essential (primary) hypertension; R53.83 Other fatigue
CPT/HCPCS: 36415; 80053; 80061; 82043; 82570; 82607; 82746; 83036; 84443; 85025

== ENCOUNTER 2024-10-04 07:40 | Outpatient (AMB) | payer OTHER, SELFPAY ==
--- NOTE | 2024-10-03 14:29 | A.OFFVIS_ITS ---
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 She states she had been doing well until over the holidays she experienced right- sided pain nausea vomiting. She was seen at [facility] emergency room they did a CT which noted a 5 mm proximal ureteral stone with some hydronephrosis. She denies fever. She denies dysuria. I have reviewed consult notes. We will check a renal ultrasound and KUB. The patient had mild hypercalciuria on past 24 hour urine I will refer her to Nephrology. Review of chart: 03/05/2024--I reviewed that the renal ultrasound 02/27/2024 was within normal limits right hydronephrosis is resolved. Discussed 24 hour urine results: Total volume 2.02 mL, Calcium 239 mg (eleveted); Oxalate 33 mg, Sodium 297(elevated), Citrate 916 mg. Instructed on importance of fluid intake, Low oxalate diet, low sodium diet. Follow-up in 1 year renal ultrasound at that time. 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 Was in the ED on 12/04/23 with right flank and lower quadrant pain CT imaging mild right hydronephrosis with perinephric stranding into proximal ureteral stones She was given Flomax She states she recently had right knee surgery October 31 she did have a lot of nausea and vomiting after the procedure. She states that she passed both stones she did see them in the toilet, when she was able to retrieve and describes it as a black hard pebble like. Plan metabolic workup, 24 urine collection will check renal ultrasound. To re--evaluate right kidney, to confirm resolution of perinephric stranding and hydronephrosis. 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 [employer] All systems reviewed & are unremarkable except as noted in HPI and below Reports no additional complaints Eyes Reports no additional complaints ENT Reports no additional complaints Card Reports no additional complaints Resp Reports no additional complaints GI Reports no additional complaints Reports as per HPI Musc Reports no additional complaints Skin/Breast Reports system reviewed and no additional complaints, except as documented Neuro Reports no additional complaints Psych Reports no additional complaints Endo Reports no additional complaints Magdi/Lymph Reports no additional complaints Aller/Immun Reports no additional complaints Results AMB Urinalysis, Automated UA Leukoctes 0 Emmett/uL Last Edit by Gayathri Thacker CMA on 10/04/24 08:12 UA Nitrite Negative Last Edit by Gayathri Thacker CMA on 10/04/24 08:12 UA Urobilinogen 3.5 mg/dL Last Edit by Gayathri Thacker CMA on 10/04/24 08:1 2 UA Protein 15 mg/dL Last Edit by Gayathri Thacker CMA on 10/04/24 08:12 UA pH 5.5 Last Edit by Gayathri Thacker CMA on 10/04/24 08:12 UA Blood 0 Dagoberto/uL Last Edit by Gayathri Thacker CMA on 10/04/24 08:12 UA Specific Prosperity 1.025 Last Edit by Gayathri Thacker CMA on 10/04/24 08: 12 UA Ketone Negative Last Edit by Gayathri Thacker CMA on 10/04/24 08:12 UA Bilirubin 0 mg/dL Last Edit by Gayathri Thacker CMA on 10/04/24 08:12 UA Glucose 0 mg/dL Last Edit by Gayathri Thacker CMA on 10/04/24 08:12 Results Reviewed Results Reviewed: Laboratory Last Values Urine pH (Auto) 5.5 10/04/24 08:07 Specific Prosperity (Auto) 1.025 10/04/24 08:07 Urine Protein (Auto) 15 mg/dL 10/04/24 08:07 Glucose (UA)(Auto) 0 mg/dL 10/04/24 08:07 Urine Ketones (Auto) Negative 10/04/24 08:07 Urine Blood (Auto) 0 Dagoebrto/uL 10/04/24 08:07 Urine Nitrite (Auto) Negative 10/04/24 08:07 Urine Bilirubin (Auto) 0 mg/dL 10/04/24 08:07 Urine Urobilinogen (Auto) 3.5 mg/dL 10/04/24 08:07 Leukocyte Esterase (Auto) 0 Emmett/uL 10/04/24 08:07 Date of Service: 02/27/24 EXAMINATION: US RETROPERITONEAL LIMITED (RENAL ONLY) CLINICAL INFORMATION: Unspecified hydronephrosis. COMPARISON: CT abdomen and pelvis 12/04/2023. Ultrasound abdomen 03/25/2010. TECHNIQUE: Real-time imaging of the kidneys. FINDINGS: RIGHT KIDNEY: 13.5 x 5.2 x 6.5 cm (SAG x AP x TRV). The kidney is normal in size, contour, and echogenicity. Renal cortical thickness is normal. No calculi or focal parenchymal lesions. No hydronephrosis. The previously seen mild right-sided hydronephrosis secondary to obstructing ureteral calculi is no longer present. LEFT KIDNEY: 11.5 x 6.7 x 5.6 cm (SAG x AP x TRV). The kidney is normal in size, contour, and echogenicity. Renal cortical thickness is normal. No calculi or focal parenchymal lesions. No hydronephrosis. IMPRESSION: Normal-appearing kidneys. Date of Service: 12/04/23 EXAMINATION: CT ABDOMEN AND PELVIS WITHOUT CONTRAST CLINICAL INFORMATION: Abdominal pain COMPARISON: CT abdomen pelvis on 03/28/2010 TECHNIQUE: Multidetector volumetric imaging was performed from the superior aspect of the liver through the pubic symphysis. Sagittal and coronal reformatted images were obtained on the technologist's workstation. This CT examination was performed using dose optimization techniques as appropriate, variously including the following: *Automated exposure control *Adjustment of mA and/or kV according to patient size (this includes techniques or standardized protocols for targeted exams where dose is matched to indication/reason for exam; i.e. extremities or head) *Use of iterative reconstruction technique DLP: 1120 mGy-cm FINDINGS: LUNG BASES: The visualized lung bases are unremarkable. LIVER, GALLBLADDER, AND BILIARY TREE: The liver is normal in size, shape, and attenuation. No focal hepatic lesion or biliary ductal dilatation is present. Prior cholecystectomy. PANCREAS: Unremarkable. SPLEEN: Unremarkable. ADRENAL GLANDS: Unremarkable. KIDNEYS AND URETERS: The bilateral kidneys are normal in size. There is no left hydronephrosis or renal calculi. There is mild left hydronephrosis and proximal hydroureter secondary to 2 adjacent obstructing calculi in the right proximal ureter measuring 0.3 and 0.4 cm. There is perinephric stranding surrounding the right kidney. BLADDER: Unremarkable. GASTROINTESTINAL TRACT: Moderate hiatal hernia. Small large bowel are otherwise normal in caliber. Colonic diverticulosis is noted. ABDOMINAL WALL: No significant hernia is appreciated. LYMPH NODES: Normal. VASCULAR: Mild atherosclerotic disease. PELVIC VISCERA: Unremarkable. OSSEOUS STRUCTURES: Unremarkable. IMPRESSION: 1. Mild right hydronephrosis and proximal hydroureter secondary to 2 adjacent obstructing calculi in the right proximal ureter measuring 0.3 and 0.4 cm. 2. Moderate hiatal hernia. Assessment & Plan Assessment & Plan (1) Hydronephrosis, right: Code(s): N13.30 - Unspecified hydronephrosis Category: Medical (2) Renal and ureteric calculus: Code(s): N20.2 - Calculus of kidney with calculus of ureter Category: Medical (3) Right flank pain: Code(s): R10.9 - Unspecified abdominal pain Category: Medical (4) Hypercalciuria: Code(s): R82.994 - Hypercalciuria Category: Medical (5) Kidney stone: Code(s): N20.0 - Calculus of kidney Category: Medical Plan Renal ultrasound KUB Prednisone 20 mg daily for 3 days, continue tamsulosin, Zofran for nausea. She is given a strainer today. Follow-up with patient in 2 weeks or sooner for pain or fever. Orders: Orders AMB Urinalysis Automated Today Z13.9 - Encounter for screening, unspecified US renal BI Today N20.0 - Calculus of kidney, R10.9 - Unspecified abdominal pain XR KUB Today N20.0 - Calculus of kidney Referrals Nephrology Referral R82.994 - Hypercalciuria, Z87.442 - Personal history of urinary calculi Medications: New tamsulosin (Flomax) 0.4 mg PO BEDTIME 14 caps 0RF prednisone 20 mg PO DAILY 3 days 3 tabs 0RF ondansetron 8 mg PO QID 5 days PRN 20 tabs 0RF nausea and vomiting Patient Instructions: The patient had an opportunity to ask questions regarding treatment plan. The patient expressed understanding and agreement with the above treatment plan. The patient is aware they should contact our office by phone for worsening of their current condition or the appearance of new symptoms. Compliance is encouraged with any medications and followup testing that is ordered. It is a privilege to be allowed the opportunity to participate in the urologic care of your patient. If you have any questions or concerns regarding treatment for the above conditions please do not hesitate to contact me. The office telephone contact is [phone]. This note is constructed in part using voice recognition software. While every effort has been made to ensure accuracy relationship advisor errors may have been included. Yours sincerely, Víctor Marte MD Coding Level of Care Code Est Pt Level 4 (39881) Diagnoses Hydronephrosis, right N13.30 Renal and ureteric calculus N20.2 Right flank pain R10.9 Hypercalciuria R82.994 Kidney stone N20.0
== END 2024-10-04 08:23 | disposition home or self-care (01) ==
PROVIDERS: PCP Internal Medicine; Visit Provider Urology
DX: N13.30 Unspecified hydronephrosis (principal); N20.2 Calculus of kidney with calculus of ureter; R10.9 Unspecified abdominal pain; R82.994 Hypercalciuria; N20.0 Calculus of kidney; Z13.9 Encounter for screening, unspecified
CPT/HCPCS: 99214

== ENCOUNTER → 2024-10-04 07:40 | Outpatient (BNVA) | payer OTHER, SELFPAY | PROVIDERS: PCP Internal Medicine; Visit Provider Urology | DX: N13.30 Unspecified hydronephrosis (principal); N20.2 Calculus of kidney with calculus of ureter; R10.9 Unspecified abdominal pain; R82.994 Hypercalciuria | CPT/HCPCS: 81003; 99212 ==

== ENCOUNTER 2024-10-07 11:05 | Outpatient (REF) | payer OTHER, SELFPAY ==
--- NOTE | ~2024-10-07 | US_ITS ---
EXAMINATION: US RETROPERITONEAL LIMITED (RENAL ONLY) CLINICAL INFORMATION: Right flank pain, calculus of kidney. COMPARISON: 02/27/2024. KUB radiograph 10/07/2024. TECHNIQUE: Real-time imaging of the kidneys. FINDINGS: RIGHT KIDNEY: 12.3 x 4.8 x 5.9 cm (SAG x AP x TRV). The kidney is normal in size, contour, and echogenicity. Renal cortical thickness is normal. No calculi or focal parenchymal lesions. No hydronephrosis. LEFT KIDNEY: 11.7 x 6.5 x 4.7 cm (SAG x AP x TRV). The kidney is normal in size, contour, and echogenicity. Renal cortical thickness is normal. No calculi or focal parenchymal lesions. No hydronephrosis. US/US renal BI IMPRESSION: Normal kidneys. No hydronephrosis or calculus. Electronically signed by: Kevin Mcintosh MD 10/07/2024 12:00 PM [facility]
--- NOTE | ~2024-10-07 | XR_ITS ---
CLINICAL HISTORY: N20.0 - Calculus of kidney 1 view abdomen Comparison: None Findings: No pneumoperitoneum or pneumatosis. No abnormal calcifications. No acute fractures. IMPRESSION: Normal bowel gas pattern This document has been electronically signed by: Christiano Enrique MD on 10/09/2024 05:45:42
--- OUTSIDE RECORDS SUMMARY | 2024-10-07 14:02 | XMS_ITS | Continuity of Care Document ---
Author Organization [facility] Address [address] [place] [address] Phone [phone] Social History Type Date Description Comments Sex Unknown Medications Active Medications SIG Qnty Indications Ordering Provider Date Metformin HCL [id number] Tablets ER 24HR Take 1 Tablet By Mouth Twice A Day 180tabs Devaughn Gandhi M.D. 06/18/2022 Medical Devices Description No Information Available Encounters Description No Information Available Assessments Description No Information Available Plan of Treatment No Information Available Functional Status Description No Information Available Mental Status Description No Information Available Referrals Description No Information Available
--- OUTSIDE RECORDS SUMMARY | 2024-10-07 14:02 | XMS_ITS | Data Portability ---
Author Organization OLGA [facility]bar [facility] nivia [address] Address [address] [place] [address] Care Team Providers Care Lockstitch Binder Name Role Phone MARIA C ACHARYA Primary Care Provider [phone] Assessment No assessment recorded. Plan of Treatment Reminders Order Date Submit Date Provider Last Modified By Organization Details Last Modified Time Details Appointments None recorded. Lab None recorded. 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 Surgeries None recorded. Imaging None recorded. Medication Orders None recorded. Patient TargetsNo targets recorded. 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 Medical Equipment None Reported. Allergies Allergen ID Allergen Name Allergen Category Reaction Reaction Severity Criticality Documentation Date Start Date Code Code System Note Provider Name and Address Organization Details Recorded Time 611305 Substance with sulfonami de structure and antibacte rial mechanism of action (substanc e) medicatio n Not available Not available Not available 05/04/2023 70552 8003 SNOMED OLGA Uribe - [facility] [...] Not Available Vitals Date Recorded Body weight Provider Name an d Address Organization Details Last Updated DateTime 05/04/2023 240137.94 g Hallie Staples PA - [facility] 05/04/2023 10:07:14 Date Recorded Body mass index (BMI) Body height Provider Name and Address Organization Details Last Updated DateTime 05/04/2023 43.6 kg/m2 167.64 cm Hallie Staples PA - [facility] 05/04/2023 10:07:16 Date Recorded Pain severity - 0-10 verbal numeric rating [Score] - Reported Provider Name and Address Organization Details Last Updated DateTime 05/04/2023 4 Hallie Jenna PA - [facility] 0 05/04/2023 10:08:59 Date Recorded Respiratory rate Provider Name a nd Address Organization Details Last Updated DateTime 05/04/2023 20 /min Hallie Staples PA - [facility] 0 05/04/2023 10:09:01 Date Recorded Body temperature Provider Name a nd Address Organization Details Last Updated DateTime 05/04/2023 97.8 [degF] Hallie Staples PA - [facility] 05/04/2023 10:09:40 Date Recorded Oxygen saturation Oxygen saturation in Arterial blood by Pulse oximetry Provider Name and Address Organization Details Last Updated DateTime 05/04/2023 97 % 97 % Hallie Staples PA - [facility] 05/04/2023 10:09:48 Date Recorded Heart rate Provider Name an d Address Organization Details Last Updated DateTime 05/04/2023 80 /min Hallie Jenna PA - [facility] 0 05/04/2023 10:09:50 Date Recorded Systolic blood pressure Diastolic blood pressure Provider Name and Address Organization Details Last Updated DateTime 05/04/2023 134 mm[Hg] 89 mm[Hg] Hallie Jenna PA - [facility] 05/04/2023 10:10:00 Social History Question Answer Notes LastModified by Organizat ion Details LastModified Time Tobacco Smoking Status Never Smoker Hallie Staples null, PA - [facility] 05/04/2023 10:08:45 What [...] split virus, quadrivalent, preservative 6 completed Hallie Staples null, PA - [facility] 05/04/2023 10:07:26 Influenza, split virus, quadrivalent, preservative 7 completed Hallie Staples null, PA - [facility] 05/04/2023 10:07:26 Influenza, MDCK, quadrivalent, PF 2 completed Hallie Jenna null, PA - [facility] 05/04/2023 10:07:26 COVID-19, mRNA, LNP-S, PF, 30 mcg/0.3 mL dose 1 completed Hallie Staples null, PA - [facility] 05/04/2023 10:07:26 COVID-19, mRNA, LNP-S, PF, 30 mcg/0.3 mL dose 1 completed Hallie Jenna null, PA - [facility] 05/04/2023 10:07:26 COVID-19, mRNA, LNP-S, PF, 30 mcg/0.3 mL dose 1 completed Hallie Staples null, PA - [facility] 05/04/2023 10:07:26 COVID-19, mRNA, LNP-S, PF, 30 mcg/0.3 mL dose, arlen-sucrose 2 completed Hallie Staples null, PA - [facility] 05/04/2023 10:07:26 COVID-19, mRNA, LNP-S, bivalent, PF, 30 mcg/0.3 mL dose 2 completed Hallie Jenna null, PA - [facility] 05/04/2023 10:07:26 pneumococcal polysaccharide PPV23 1 completed Hallie Staples null, PA - [facility] 05/04/2023 10:07:26 Influenza, split virus, trivalent, preservative 0 completed Hallie Staples null, PA - [facility] 05/04/2023 10:07:26 Influenza, split virus, trivalent, preservative 4 completed Hallie Jenna null, PA - [facility] 05/04/2023 10:07:26 Influenza, split virus, quadrivalent, PF 8 completed Hallie Staples null, PA - [facility] 05/04/2023 10:07:26 Influenza, split virus, quadrivalent, PF 0 completed Hallie Jenna null, PA - [facility] 05/04/2023 10:07:26 Influenza, split virus, quadrivalent, PF 1 completed Hallie Jenna null, PA - [facility] 05/04/2023 10:07:26 Past Encounters Encounter ID Performer Location Encounter Start Date Encounter Closed Date Diagnosis/Indication Diagnosis SNOMED-CT Code Diagnosis ICD10 Code Diagnosis Note [id number] [address] [address] [place] [address] 09/04/2018 08:28:53 09/04/2018 09:15:19 [id number] [address] [place] [id number] 11/08/2017 14:51:45 11/08/2017 15:52:09 [id number] [place] [address] [facility] [id number] 05/04/2023 09:47:30 05/04/2023 10:26:26 Pain of toe of right foot [id number] 35795 M79.674 partial toenail avulsionre commend epsom salt soakstopic al bacitracin watch for s/sx of infectionw ear open toed shoes until pain improvedpo diatry referralno xray available today Patient advised to follow up as needed for worsening symptoms or no improvemen t.Patient expressed understand ing of and agreement with the plan as outlined above. Health Concerns Section Related Observation LastModified by Organization Detai ls LastModified Time None Recorded Concern Status LastModified by Organization Details LastModified Time None Recorded Advance Directives Directive None Recorded Payers Encounter Date Sequence Insurance Name Policy Number Policy Carreon Covered Member ID Carreon Member ID Guarantor Name 11/08/2017 1 [facility] Luciana A Denise [id number] Luciana A Denise 05/04/2023 1 [facility] [id number] Luciana A Denise [id number] Luciana A Denise Notes Date Note Type Note Provider Name and Address Organization Details Recorded Time 05/04/2023 text/html ToesReported bypatient.Notes:62 yo female c/o R toe painbanged toe under dressed and ripped toenail partially off+ bleedingminimal swelling+ pain - no pain with ambulation only when touching itno bruisingno redness Ron Huang DO [address] [place], [address], [place] - [facility] 05/04/2023 10:28:24 OBGyn Episode No OBEpisode recorded.
== END 2024-10-07 11:06 | disposition home or self-care (01) ==
LOC: HO.HMGCX 11:05
PROVIDERS: PCP Internal Medicine; Visit Provider Urology
DX: R10.9 Unspecified abdominal pain (principal); N20.0 Calculus of kidney
CPT/HCPCS: 74018; 76775

== ENCOUNTER → 2024-10-07 11:07 | Outpatient (BNV) | payer OTHER, SELFPAY | PROVIDERS: PCP Internal Medicine; Visit Provider Radiology Diagnostic Radiology | DX: R10.813 Right lower quadrant abdominal tenderness (principal) | CPT/HCPCS: 76775 ==

== ENCOUNTER 2024-10-15 10:12 | Outpatient (AMB) | payer OTHER, SELFPAY ==
[2024-10-15 10:19] VITALS: BP 122/78; PULSE 83; O2SAT 95; BMI 40.9
--- NOTE | 2024-10-15 10:19 | HO.NEPHOV ---
Vital Signs 10/15/24 10:19 Height 5 ft 4.5 in Weight 242 lb BMI 40.9 BP 122/78 Blood Pressure Location Lt brachial Position Sitting Pulse 83 Pulse Source Pulse Oximeter Pulse Oximetry (%) 95 Intake Visit Reasons: Hypercalciuria, Digital Learning Platforms Manager Required: No Accompanied by: Self / Same As Patient Allergies Sulfa (Sulfonamide Antibiotics) Allergy (Unknown, Verified 10/15/24 10:23) HIVES Medication List - Last Reconciled 10/15/24 by Josef Ontiveros MD acetaminophen 650 mg PO Q4H PRN albuterol sulfate 90 mcg/actuation inhalation atorvastatin 10 mg PO DAILY cetirizine (Zyrtec) 10 mg PO DAILY PRN clonazepam 1 mg PO BEDTIME PRN gabapentin 900 mg PO BEDTIME hydrochlorothiazide 25 mg PO DAILY PRN lansoprazole 15 mg PO DAILY meloxicam 15 mg PO DAILY PRN metformin ER 1,500 mg PO DAILY ondansetron 8 mg PO QID PRN 5 days ondansetron 4 mg PO DAILY semaglutide (Ozempic) 1 mg (0.75 mL) subcut QWEEK sertraline 50 mg PO DAILY tamsulosin (Flomax) 0.4 mg PO BEDTIME tramadol 50 mg PO DAILY PRN zolpidem 5 mg PO BEDTIME PRN HPI Comments Details: Luciana is a pleasant 63-year-old woman with a history of significant arthritis and recently underwent knee replacement. She developed flank pain and was found to have right hydronephrosis. She had a obstructing calculi which she passed. She was seen by Urology and underwent workup. January of 2024 urine study showed excessive sodium, uric acid, calcium. Total volume was 2 L He has been referred for evaluation of hypercalciuria. She has started a weight loss diet. She has been eating high amounts of protein including animal proteins. She is on Ozempic. So far she was lost about 70 lb. At present she has no urinary symptoms like dysuria urgency increased frequency or hematuria. No flank pain. No nausea or vomiting. No abdominal pain. No shortness of breath no fever no rash. 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 Lungs entry equal no rales. Heart S1-S2 heard no gallop or rub. Abdomen soft nontender. Neuro alert awake oriented. No asterixis. Extremities no edema. Results Reviewed Nephrology Results: Hgb 12.8 g/dl (12.0-16.0) 08/30/24 WBC 4.0 X10*3/uL (4.8-10.8) L 08/30/24 Plt Count 291 X10*3/uL (160-400) 08/30/24 Sodium 141 mmol/L (135-145) 08/30/24 Potassium 4.5 mmol/L (3.3-5.1) 08/30/24 Chloride 108 mmol/L (96-108) 08/30/24 Carbon Dioxide 27 mmol/L (22-29) 08/30/24 BUN 13 mg/dL (9-16) 08/30/24 Creatinine 0.68 mg/dL (0.5-1.4) 08/30/24 Calcium 8.8 mg/dL (8.4-10.2) 08/30/24 Urine Protein Negative mg/dL (Neg-Trace) 02/18/24 Urine Creatinine 211.24 mg/dL 08/30/24 Renal US 10/07/24 Assessment & Plan Assessment & Plan (1) Hypercalciuria: Code(s): R82.994 - Hypercalciuria Category: Medical (2) History of kidney stones: Code(s): Z87.442 - Personal history of urinary calculi Category: Medical Plan 63-year-old woman with arthritis obesity and history of nephrolithiasis has hypercalciuria. Upon reviewing the 24 urine collection he she clearly has hypercalciuria along with increased urinary sodium, uric acid and phosphorus excretion. Urine pH was also low at 5.3. All of these findings are probably related to the excessive animal protein intake. The goal is to minimize future stone formation. I have encouraged her to stay on low-sodium diet. She should cut back on animal protein intake and she can certainly increase plan proteins. Plant proteins are usually alkaline. Maintain urine output of at least 2 L by consuming more than 2.5 L of fluids. The oxalate excretion was 33. She should continue to stay on a low oxalate diet. Increase fluids with citrate intake like lemonade. She has been on furosemide p.r.n.. Furosemide can increase urinary calcium excretion. She has been taking furosemide for edema. I will switch furosemide to hydrochlorothiazide and she can take it as needed for edema. Hydrochlorothiazide should decrease urinary calcium excretion I will recheck the 24 urine collection in the next 6 weeks along with a basic metabolic panel and intact PTH. Orders: Orders Complete Blood Count Auto Diff 6 Weeks R82.994 - Hypercalciuria, Z87.442 - Personal history of urinary calculi Parathyroid Hormone Intact 6 Weeks R82.994 - Hypercalciuria, Z87.442 - Personal history of urinary calculi Vitamin D 25-OH Total 6 Weeks R82.994 - Hypercalciuria, Z87.442 - Personal history of urinary calculi Creatinine, 24 Hr Group 6 Weeks R82.994 - Hypercalciuria, Z87.442 - Personal history of urinary calculi Calcium, 24 Hr Ur 6 Weeks R82.994 - Hypercalciuria, Z87.442 - Personal history of urinary calculi Citric Acid 24hr Urine 6 Weeks R82.994 - Hypercalciuria, Z87.442 - Personal history of urinary calculi Comprehensive Met. Panel 6 Weeks R82.994 - Hypercalciuria, Z87.442 - Personal history of urinary calculi Phosphorus 6 Weeks R82.994 - Hypercalciuria, Z87.442 - Personal history of urinary calculi Sodium, 24Hr Urine Group 6 Weeks R82.994 - Hypercalciuria, Z87.442 - Personal history of urinary calculi Oxalate, 24 Hr 6 Weeks R82.994 - Hypercalciuria, Z87.442 - Personal history of urinary calculi Uric Acid, 24Hr Urine Group 6 Weeks R82.994 - Hypercalciuria, Z87.442 - Personal history of urinary calculi Medications: New hydrochlorothiazide 25 mg PO DAILY PRN 90 tabs 1RF Edema Coding Level of Care Code New Pt Level 4 (26252) Diagnoses Hypercalciuria R82.994 History of kidney stones Z87.442
--- OUTSIDE RECORDS SUMMARY | 2024-10-15 11:22 | XMS_ITS | Data Portability ---
Author Organization [facility] nivia [address] Address [address] [place] [address] Care Team Providers Care Reefer Truck Driver Name Role Phone MARIA C ACHARYA Primary Care Provider Assessment No assessment recorded. Plan of Treatment Reminders Order Date Submit Date Provider Last Modified By Organization Details Last Modified Time Details Appointments None recorded. Lab None recorded. 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 Surgeries None recorded. Imaging None recorded. Medication Orders None recorded. Patient TargetsNo targets recorded. 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 Medical Equipment None Reported. Allergies Allergen ID Allergen Name Allergen Category Reaction Reaction Severity Criticality Documentation Date Start Date Code Code System Note Provider Name and Address Organization Details Recorded Time 169451 Substance with sulfonami de structure and antibacte rial mechanism of action (substanc e) medicatio n Not available Not available Not available 05/04/2023 93822 8003 SNOMED OLGA Uribe - [facility] [...] Address Organization Details Last Updated DateTime 05/04/2023 760092.94 g Hallie Glenville PA - [facility] 05/04/2023 10:07:14 Date Recorded Body mass index (BMI) Body height Provider Name and Address Organization Details Last Updated DateTime 05/04/2023 43.6 kg/m2 167.64 cm Hallie Glenville PA - [facility] 05/04/2023 10:07:16 Date Recorded Pain severity - 0-10 verbal numeric rating [Score] - Reported Provider Name and Address Organization Details Last Updated DateTime 05/04/2023 4 Hallie Jenna PA - [facility] 0 05/04/2023 10:08:59 Date Recorded Respiratory rate Provider Name a nd Address Organization Details Last Updated DateTime 05/04/2023 20 /min Hallie Glenville PA - [facility] 0 05/04/2023 10:09:01 Date Recorded Body temperature Provider Name a nd Address Organization Details Last Updated DateTime 05/04/2023 97.8 [degF] Hallie Glenville PA - [facility] 05/04/2023 10:09:40 Date Recorded Oxygen saturation Oxygen saturation in Arterial blood by Pulse oximetry Provider Name and Address Organization Details Last Updated DateTime 05/04/2023 97 % 97 % Hallie Glenville PA - [facility] 05/04/2023 10:09:48 Date [...] Time Tobacco Smoking Status Never Smoker Hallie [place] null, PA - [facility] 05/04/2023 10:08:45 [...] split virus, quadrivalent, preservative 6 completed Hallie [place] null, PA - [facility] 05/04/2023 10:07:26 Influenza, split virus, quadrivalent, preservative 7 completed Hallie [place] null, PA - [facility] 05/04/2023 10:07:26 Influenza, MDCK, quadrivalent, PF 2 completed Hallie Jenna null, PA - [facility] 05/04/2023 10:07:26 COVID-19, mRNA, LNP-S, PF, 30 mcg/0.3 mL dose 1 completed Hallie Glenville null, PA - [facility] 05/04/2023 10:07:26 COVID-19, mRNA, LNP-S, PF, 30 mcg/0.3 mL dose 1 completed Hallie Jenna null, PA - [facility] 05/04/2023 10:07:26 COVID-19, mRNA, LNP-S, PF, 30 mcg/0.3 mL dose 1 completed Hallie [place] null, PA - [facility] 05/04/2023 10:07:26 COVID-19, mRNA, LNP-S, PF, 30 mcg/0.3 mL dose, arlen-sucrose 2 completed Hallie [place] null, PA - [facility] 05/04/2023 10:07:26 COVID-19, mRNA, LNP-S, bivalent, PF, 30 mcg/0.3 mL dose 2 completed Hallie Jenna null, PA - [facility] 05/04/2023 10:07:26 pneumococcal polysaccharide PPV23 1 completed Hallie [place] null, PA - [facility] 05/04/2023 10:07:26 Influenza, split virus, trivalent, preservative 0 completed Hallie [place] null, PA - [facility] 05/04/2023 10:07:26 Influenza, split virus, trivalent, preservative 4 completed Hallie Jenna null, PA - [facility] 05/04/2023 10:07:26 Influenza, split virus, quadrivalent, PF 8 completed Hallie [place] null, PA - [facility] 05/04/2023 10:07:26 Influenza, split virus, quadrivalent, PF 0 completed Hallie Jenna null, PA - [facility] 05/04/2023 10:07:26 Influenza, split virus, quadrivalent, PF 1 completed Hallie Jenna null, PA - [facility] 05/04/2023 10:07:26 Past Encounters Encounter ID Performer Location Encounter Start Date Encounter Closed Date Diagnosis/Indication Diagnosis SNOMED-CT Code Diagnosis ICD10 Code Diagnosis Note [id number] [address] [address] [place] [address] 09/04/2018 08:28:53 09/04/2018 09:15:19 [id number] [id number] [facility] [place] [address] 11/08/2017 14:51:45 11/08/2017 15:52:09 [id number] [place] [address] [facility] [place] [address] 05/04/2023 09:47:30 05/04/2023 10:26:26 Pain of toe of right foot [id number] 32395 M79.674 partial toenail avulsionre commend epsom salt [...] Carreon Member ID Guarantor Name 11/08/2017 1 [facility] Luciana A Denise [id number] Luciana A Denise 05/04/2023 1 [facility] [id number] Luciana A Denise [id number] Luciana A Denise Notes Date Note Type Note Provider Name and Address Organization Details Recorded Time 05/04/2023 text/html ToesReported bypatient.Notes:62 yo female c/o R toe painbanged toe under dressed and ripped toenail partially off+ bleedingminimal swelling+ pain - no pain with ambulation only when touching itno bruisingno redness Ron Huang DO [address] [place], [address], [place] - [facility] 05/04/2023 10:28:24 OBGyn Episode No OBEpisode recorded.
== END 2024-10-15 10:53 | disposition home or self-care (01) ==
PROVIDERS: PCP Internal Medicine; Referring Provider Urology; Visit Provider Internal Medicine Hypertension Specialist
DX: R82.994 Hypercalciuria (principal); Z87.442 Personal history of urinary calculi
CPT/HCPCS: 99204

== ENCOUNTER → 2024-10-15 10:12 | Outpatient (BNVA) | payer OTHER, SELFPAY | PROVIDERS: PCP Internal Medicine; Referring Provider Urology; Visit Provider Internal Medicine Hypertension Specialist | DX: R82.994 Hypercalciuria (principal); Z87.442 Personal history of urinary calculi | CPT/HCPCS: 99202 ==

== ENCOUNTER 2024-10-18 07:57 | Outpatient (AMB) | payer OTHER, SELFPAY ==
--- NOTE | 2024-10-17 22:57 | A.OFFVIS_ITS ---
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 Reviewed renal US 10/07/24--negative kidney stones, KUB 10/09/24- within normal limits. Luciana states that she was seen by Nephrology and was counseled on changing from animal protein 2 plant protein as well as medication was changed from Lasix to hydrochlorothiazide p.r.n. she will be repeating the 24 hour urine in 7 weeks. Plan to monitor kidneys follow-up in 1 year with renal ultrasound. 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 She states she had been doing well until over the holidays she experienced right- sided pain nausea vomiting. She was seen at [facility] emergency room they did a CT which noted a 5 mm proximal ureteral stone with some hydronephrosis. She denies fever. She denies dysuria. I have reviewed consult notes. We will check a renal ultrasound and KUB. The patient had mild hypercalciuria on past 24 hour urine I will refer her to Nephrology. 03/05/2024--I reviewed that the renal ultrasound 02/27/2024 was within normal limits right hydronephrosis is resolved. Discussed 24 hour urine results: Total volume 2.02 mL, Calcium 239 mg (eleveted); Oxalate 33 mg, Sodium 297(elevated), Citrate 916 mg. Instructed on importance of fluid intake, Low oxalate diet, low sodium diet. Follow-up in 1 year renal ultrasound at that time. 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 Was in the ED on 12/04/23 with right flank and lower quadrant pain CT imaging mild right hydronephrosis with perinephric stranding into proximal ureteral stones She was given Flomax She states she recently had right knee surgery October 31 she did have a lot of nausea and vomiting after the procedure. She states that she passed both stones she did see them in the toilet, when she was able to retrieve and describes it as a black hard pebble like. Plan metabolic workup, 24 urine collection will check renal ultrasound. To re--evaluate right kidney, to confirm resolution of perinephric stranding and hydronephrosis. 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 [employer] All systems reviewed & are unremarkable except as noted in HPI and below Reports no additional complaints Eyes Reports no additional complaints ENT Reports no additional complaints Card Reports no additional complaints Resp Reports no additional complaints GI Reports no additional complaints Reports as per HPI Musc Reports no additional complaints Skin/Breast Reports system reviewed and no additional complaints, except as documented Neuro Reports no additional complaints Psych Reports no additional complaints Endo Reports no additional complaints Magdi/Lymph Reports no additional complaints Aller/Immun Reports no additional complaints Telehealth Telehealth Telehealth Platform: Telephone Location of provider rendering services: practice address Location of patient: address on file Patient Identification confirmed using: Name, : Yes Telehealth method: voice only Patient verbally consented to treatment: Yes Patient verbally consented to billing insurance company: Yes Patient informed of any privacy concerns related to visit: Yes Minutes spent on Phone/Video with Pt.: 13 Results Reviewed Results Reviewed: Date of Service: 10/07/24 CLINICAL HISTORY: N20.0 - Calculus of kidney 1 view abdomen Comparison: None Findings: No pneumoperitoneum or pneumatosis. No abnormal calcifications. No acute fractures. IMPRESSION: Normal bowel gas pattern Date of Service: 10/07/24 US RETROPERITONEAL LIMITED (RENAL ONLY) CLINICAL INFORMATION: Right flank pain, calculus of kidney. COMPARISON: 02/27/2024. KUB radiograph 10/07/2024. TECHNIQUE: Real-time imaging of the kidneys. FINDINGS: RIGHT KIDNEY: 12.3 x 4.8 x 5.9 cm (SAG x AP x TRV). The kidney is normal in size, contour, and echogenicity. Renal cortical thickness is normal. No calculi or focal parenchymal lesions. No hydronephrosis. LEFT KIDNEY: 11.7 x 6.5 x 4.7 cm (SAG x AP x TRV). The kidney is normal in size, contour, and echogenicity. Renal cortical thickness is normal. No calculi or focal parenchymal lesions. No hydronephrosis. IMPRESSION: Normal kidneys. No hydronephrosis or calculus. Date of Service: 02/27/24 EXAMINATION: US RETROPERITONEAL LIMITED (RENAL ONLY) CLINICAL INFORMATION: Unspecified hydronephrosis. COMPARISON: CT abdomen and pelvis 12/04/2023. Ultrasound abdomen 03/25/2010. TECHNIQUE: Real-time imaging of the kidneys. FINDINGS: RIGHT KIDNEY: 13.5 x 5.2 x 6.5 cm (SAG x AP x TRV). The kidney is normal in size, contour, and echogenicity. Renal cortical thickness is normal. No calculi or focal parenchymal lesions. No hydronephrosis. The previously seen mild right-sided hydronephrosis secondary to obstructing ureteral calculi is no longer present. LEFT KIDNEY: 11.5 x 6.7 x 5.6 cm (SAG x AP x TRV). The kidney is normal in size, contour, and echogenicity. Renal cortical thickness is normal. No calculi or focal parenchymal lesions. No hydronephrosis. IMPRESSION: Normal-appearing kidneys. Date of Service: 12/04/23 EXAMINATION: CT ABDOMEN AND PELVIS WITHOUT CONTRAST CLINICAL INFORMATION: Abdominal pain COMPARISON: CT abdomen pelvis on 03/28/2010 TECHNIQUE: Multidetector volumetric imaging was performed from the superior aspect of the liver through the pubic symphysis. Sagittal and coronal reformatted images were obtained on the technologist's workstation. This CT examination was performed using dose optimization techniques as appropriate, variously including the following: *Automated exposure control *Adjustment of mA and/or kV according to patient size (this includes techniques or standardized protocols for targeted exams where dose is matched to indication/reason for exam; i.e. extremities or head) *Use of iterative reconstruction technique DLP: 1120 mGy-cm FINDINGS: LUNG BASES: The visualized lung bases are unremarkable. LIVER, GALLBLADDER, AND BILIARY TREE: The liver is normal in size, shape, and attenuation. No focal hepatic lesion or biliary ductal dilatation is present. Prior cholecystectomy. PANCREAS: Unremarkable. SPLEEN: Unremarkable. ADRENAL GLANDS: Unremarkable. KIDNEYS AND URETERS: The bilateral kidneys are normal in size. There is no left hydronephrosis or renal calculi. There is mild left hydronephrosis and proximal hydroureter secondary to 2 adjacent obstructing calculi in the right proximal ureter measuring 0.3 and 0.4 cm. There is perinephric stranding surrounding the right kidney. BLADDER: Unremarkable. GASTROINTESTINAL TRACT: Moderate hiatal hernia. Small large bowel are otherwise normal in caliber. Colonic diverticulosis is noted. ABDOMINAL WALL: No significant hernia is appreciated. LYMPH NODES: Normal. VASCULAR: Mild atherosclerotic disease. PELVIC VISCERA: Unremarkable. OSSEOUS STRUCTURES: Unremarkable. IMPRESSION: 1. Mild right hydronephrosis and proximal hydroureter secondary to 2 adjacent obstructing calculi in the right proximal ureter measuring 0.3 and 0.4 cm. 2. Moderate hiatal hernia. Assessment & Plan Assessment & Plan (1) Hypercalciuria: Code(s): R82.994 - Hypercalciuria Category: Medical (2) History of kidney stones: Code(s): Z87.442 - Personal history of urinary calculi Category: Medical Plan Follow-up in 1 year renal ultrasound prior Orders: Orders US renal BI 10 Months R82.994 - Hypercalciuria, Z87.442 - Personal history of urinary calculi Patient Instructions: The patient had an opportunity to ask questions regarding treatment plan. The patient expressed understanding and agreement with the above treatment plan. The patient is aware they should contact our office by phone for worsening of their current condition or the appearance of new symptoms. Compliance is encouraged with any medications and followup testing that is ordered. It is a privilege to be allowed the opportunity to participate in the urologic care of your patient. If you have any questions or concerns regarding treatment for the above conditions please do not hesitate to contact me. The office telephone contact is [phone]. This note is constructed in part using voice recognition software. While every effort has been made to ensure accuracy income tax advisor errors may have been included. Yours sincerely, Víctor Marte MD Coding Level of Care Code Tele Est Pt Level 3 (25317) Diagnoses Hypercalciuria R82.994 History of kidney stones Z87.442
--- OUTSIDE RECORDS SUMMARY | 2024-10-18 07:59 | XMS_ITS | Patient Health Record ---
Author Organization [facility] Address [address] [place] [address] Care Team Providers Care Vacuum Pan Tender Name Role Phone Katarzyna Calderon Primary Care Provider Unavailabl e Allergies Allergen (clinical drug ingredient) Drug/Non Drug Allergy documented on EMR Reaction Allergy Type Onset Date Status Substance with sulfonamide structure and antibacterial mechanism of action (substance) Sulfa Antibiotics urticaria Drug Allergy Active Reason For Referral No Information Medications Medication SIG (Take, Route, Frequency, Duration) Notes [...] Tartrate 5 MG 1 tablet at bedti wv Orally Once a day Active Problems Problem Type SNOMED Code ICD Code Onset Dates Problem Status W/U Status Risk Notes Problem 50601760011997477 Congenital metatarsus adductus, 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 Problem [id number] Congenital metatarsus adductus, 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) Active confirmed Plan Of Treatment Pending Test Test Name Order Date Hepatic Function Panel (7) 05/14/2021 Insurance Providers Payer Name Payer Address Payer Phone Subscriber Number Group Number Insured Name Patient Relationship to Insured Coverage Start Date Coverage End Date [facility] [address] [place] [phone] [id number] Luciana Walker Self - patient is the insured Medical (General) History Medical History History ICD Code GERD Osteoarthritits Depression Anxiety Obesity Obstructive sleep apnea on CPAP Vitamin D Deficiency HTN diabetes mellitus Surgical History Surgery Date(Month/Year) knee surgery
--- OUTSIDE RECORDS SUMMARY | 2024-10-18 07:59 | XMS_ITS | Data Portability ---
Author Organization [facility] [address] Address [address] [place] [address] Care Team Providers Care Stereotype Finisher Name Role Phone MARIA C ACHARYA Primary Care Provider Assessment No assessment recorded. Plan of Treatment Reminders Order Date Submit Date Provider Last Modified By Organization Details Last Modified Time Details Appointments None recorded. Lab None recorded. Referral welding teacher referral 2022 023 [email or web address] 1 Not available 3 08:08:10 Procedures None recorded. Surgeries None recorded. Imaging None recorded. Medication Orders None recorded. Patient TargetsNo targets recorded. Patient Instructions Encounter Date Encounter Id Patient Instructions Last Modified By Organization Details Last Modified Time 05/04/2023 [id number] toenail or fingernail avulsion: care instructions [email or web address] Not available 05/04/2023 10:23:43 Reason for Referral Supervisor Intermediates Referral for Pain of toe of right foot Referring Physician: [facility], Encounter Date: 05/04/2023 Problems Name Problem SNOMED Code Status Onset Date Resolution Date Notes Provider Name and Address Organization Details Recorded Time Insomnia 050895708 Active 2022 Hallie Sandia null, PA - [facility] 3 10:08:22 Diabetes mellitus 80171078 Active 2022 Hallie Sandia null, PA - [facility] 3 10:08:27 Dependence on continuous positive airway pressure ventilation 755835372 Active 2022 Hallie Sandia null, PA - [facility] 3 10:08:34 Problem Notes None recorded. Medical Equipment None Reported. Allergies Allergen ID Allergen Name Allergen Category Reaction Reaction Severity Criticality Documentation Date Start Date Code Code System Note Provider Name and Address Organization Details Recorded Time 102246 Substance with sulfonami de structure and antibacte rial mechanism of action (substanc e) medicatio n Not available Not available Not available 05/04/2023 [id number] SNOMED OLGA Urieb - [facility] 3 10:07:21 Medications Name [...] Address Organization Details Last Updated DateTime 05/04/2023 075745.94 g Hallie Sandia PA - [facility] 05/04/2023 10:07:14 Date Recorded Body mass index (BMI) Body height Provider Name and Address Organization Details Last Updated DateTime 05/04/2023 43.6 kg/m2 167.64 cm Hallie Sandia PA - [facility] 05/04/2023 10:07:16 Date Recorded Pain severity - 0-10 verbal numeric rating [Score] - Reported Provider Name and Address Organization Details Last Updated DateTime 05/04/2023 4 Hallie Jenna PA - [facility] 0 05/04/2023 10:08:59 Date Recorded Respiratory rate Provider Name a nd Address Organization Details Last Updated DateTime 05/04/2023 20 /min Hallie Sandia PA - [facility] 0 05/04/2023 10:09:01 Date Recorded Body temperature Provider Name a nd Address Organization Details Last Updated DateTime 05/04/2023 97.8 [degF] Hallie Sandia PA - [facility] 05/04/2023 10:09:40 Date Recorded Oxygen saturation Oxygen saturation in Arterial blood by Pulse oximetry Provider Name and Address Organization Details Last Updated DateTime 05/04/2023 97 % 97 % Hallie Sandia PA - [facility] 05/04/2023 10:09:48 Date [...] Time Tobacco Smoking Status Never Smoker Hallie Sandia null, PA - [facility] 05/04/2023 10:08:45 [...] split virus, quadrivalent, preservative 6 completed Hallie Sandia null, PA - [facility] 05/04/2023 10:07:26 Influenza, split virus, quadrivalent, preservative 7 completed Hallie Sandia null, PA - [facility] 05/04/2023 10:07:26 Influenza, MDCK, quadrivalent, PF 2 completed Hallie Jenna null, PA - [facility] 05/04/2023 10:07:26 COVID-19, mRNA, LNP-S, PF, 30 mcg/0.3 mL dose 1 completed Hallie Sandia null, PA - [facility] 05/04/2023 10:07:26 COVID-19, mRNA, LNP-S, PF, 30 mcg/0.3 mL dose 1 completed Hallie Jenna null, PA - [facility] 05/04/2023 10:07:26 COVID-19, mRNA, LNP-S, PF, 30 mcg/0.3 mL dose 1 completed Hallie Sandia null, PA - [facility] 05/04/2023 10:07:26 COVID-19, mRNA, LNP-S, PF, 30 mcg/0.3 mL dose, arlen-sucrose 2 completed Hallie Sandia null, PA - [facility] 05/04/2023 10:07:26 COVID-19, mRNA, LNP-S, bivalent, PF, 30 mcg/0.3 mL dose 2 completed Hallie Jenna null, PA - [facility] 05/04/2023 10:07:26 pneumococcal polysaccharide PPV23 1 completed Hallie Sandia null, PA - [facility] 05/04/2023 10:07:26 Influenza, split virus, trivalent, preservative 0 completed Hallie Sandia null, PA - [facility] 05/04/2023 10:07:26 Influenza, split virus, trivalent, preservative 4 completed Hallie Jenna null, PA - [facility] 05/04/2023 10:07:26 Influenza, split virus, quadrivalent, PF 8 completed Hallie Sandia null, PA - [facility] 05/04/2023 10:07:26 Influenza, split virus, quadrivalent, PF 0 completed Hallie Jenna null, PA - [facility] 05/04/2023 10:07:26 Influenza, split virus, quadrivalent, PF 1 completed Hallie Jenna null, PA - [facility] 05/04/2023 10:07:26 Past Encounters Encounter ID Performer Location Encounter Start Date Encounter Closed Date Diagnosis/Indication Diagnosis SNOMED-CT Code Diagnosis ICD10 Code Diagnosis Note [id number] [address] [address] [place] [address] 09/04/2018 08:28:53 09/04/2018 09:15:19 [id number] [id number] [place] [address] 11/08/2017 14:51:45 11/08/2017 15:52:09 [id number] [place] [address] [facility] [place] [address] 05/04/2023 09:47:30 05/04/2023 10:26:26 Pain of toe of right foot [id number] 13315 M79.674 partial toenail avulsionre commend epsom salt [...] Member ID Guarantor Name 11/08/2017 1 [facility] Luciana A Denise [id number] Luciana A Denise 05/04/2023 1 [facility] [id number] Luciana A Denise [id number] Luciana A Denise Notes Date Note Type Note Provider Name and Address Organization Details Recorded Time 05/04/2023 text/html ToesReported bypatient.Notes:62 yo female c/o R toe painbanged toe under dressed and ripped toenail partially off+ bleedingminimal swelling+ pain - no pain with ambulation only when touching itno bruisingno redness Ron Huang DO [address] [place], [address], [place] - [facility] 05/04/2023 10:28:24 OBGyn Episode No OBEpisode recorded.
--- OUTSIDE RECORDS SUMMARY | 2024-10-18 07:59 | XMS_ITS ---
Author Organization Kvng Colón DO [facility] Address [address] [place], [place] [id number] Care Team Providers Care Councilperson Name Role Phone KatarzynaKvng Primary Care Provider REASON FOR VISIT Refills MEDICATIONS Medication SIG (Take, Route, Fr equency, Duration) Notes Start Date End Date Status Meloxicam 15 MG 1 tablet Orally Once a day for 30 days Active clonazePAM 1 MG 1 tablet at bedtime as needed Orally Once a day for 30 days 09/13/2024 Active Encounters Encounter Location Date Provider Diagnosis Kvng Colón DO, [address] [id number] 09/13/2024 Kvng Colón Reactive depression F32.9 ; Type 2 diabetes mellitus without complication, without long-term current use of insulin E11.9 and Osteoarthritis of right knee, unspecified osteoarthritis type M17.9 ASSESSMENTS Encounter Date Diagnosis Assessment Notes Treatment Notes Treatment Clinical Notes 09/13/2024 Reactive depression (ICD-10 - F32.9) 09/13/2024 Type 2 diabetes mellitus without complication, without long-term current use of insulin (ICD-10 - E11.9) 09/13/2024 Osteoarthritis of right knee, unspecified osteoarthritis type (ICD-10 - M17.9) PLAN OF TREATMENT Medication Medication Name Sig Start Date Stop Date Notes Meloxicam 15 MG 1 tablet Orally Once a day for 30 days clonazePAM 1 MG 1 tablet at bedtime as needed Orally Once a day for 30 days 09/13/2024
--- OUTSIDE RECORDS SUMMARY | 2024-10-18 07:59 | XMS_ITS ---
Author Organization Kvng Colón DO [facility] Address [address] [place], [place] [phone] Care Team Providers Care New Car Sales Manager Name Role Phone KatarzynaKvng brown Primary Care Provider RESULTS Component Value Reference Range Notes Vitamin B12 and Folate Reviewed date:08/30/2024 02:47:20 PM Interpretation:Normal Performing Lab:[facility], [address] [place] [id number] Notes/Report: Vitamin B12 321 200-900 pg/mL NORMAL 200-900 PG/ML INDETERMINATE 160-199 PG/ML DEFICIENT < 160 PG/ML Folate 4.6 > or = 4.0 ng/mL Reference Values: > or = 4.0 ng/mL < 4.0 ng/mL suggests folate deficiency Methotrexate, aminopterin and folinic acid (leucovorin) are chemotherapeutic agents whose molecular structures are similar to folate; therefore, the Global Lead folate assay cannot be used for patients using these drugs. REASON FOR VISIT Message Encounters Encounter Location Date Provider Diagnosis Kvng Colón DO, FACP [address] [place], [place] [id number] 08/23/2024 Kvng Colón Fatigue, unspecified type R53.83 ASSESSMENTS Encounter Date Diagnosis Assessment Notes Treatment Notes Treatment Clinical Notes 08/23/2024 Fatigue, unspecified type (ICD-10 - R53.83) PLAN OF TREATMENT No Information
--- OUTSIDE RECORDS SUMMARY | 2024-10-18 08:00 | XMS_ITS ---
Author Organization [facility] Address [address] [place] [address] Care Team Providers Care Assembly Repairer Name Role Phone Katarzyna (RETIRED) Kvng TOLEDO Primary Care Provid er Unavailable Kolby Magallanes Jr Unavailable [phone] Encounters Encounter Location Date Provider Diagnosis [facility] [address] [place] [address] 08/06/2024 Kolby Magallanes Jr PLAN OF TREATMENT No Information
--- OUTSIDE RECORDS SUMMARY | 2024-10-18 08:00 | XMS_ITS ---
Author Organization Kvng Colón DO, FACP Address [address] [place], [place] [id number] Care Team Providers Care Court Specialist Name Role Phone Kvng Colón Primary Care Provider [phone] ALLERGIES Allergen (clinical drug ingredient) Drug/Non Drug [...] Location Date Provider Diagnosis Kvng Colón DO, [address] [id number] 09/01/2024 Kvng Colón Type 2 diabetes obdulio [...] Up: 3 Months, Reason: follow up visit Progress Notes * Examination Category Sub-Category Detail Notes General Examination GENERAL APPEARANCE: in no ac wainwright distress, well developed, well nourished HEAD: normocephalic, atrau matic HEART: no murmurs, regular rate and rhythm, S1, S2 normal LUNGS: clear to auscultatio n bilaterally ABDOMEN: normal, bowel sounds present, soft, nontender, nondistended SKIN: warm and dry EXTREMITIES: no edema PSYCH: alert, oriented, cog nitive function intact, less?anxious appearing, mood less depressed
--- OUTSIDE RECORDS SUMMARY | 2024-10-18 08:00 | XMS_ITS | Patient Health Record ---
Author Organization [facility] Address [address] [place] [address] Care Team Providers Care Senior Credit Analyst Name Role Phone Katarzyna (RETIRED) Kvng TOLEDO Primary Care Provid er Unavailable Elpidio Meng, Kolby Unavailable REASON FOR REFERRAL No Information SOCIAL HISTORY Sex Assigned At : Social History Observation Description Sex Assigned At Unknown Encounters Encounter Location Date Provider Diagnosis [facility] [address] [place] [address] 08/06/2024 Kolby Magallanes Jr PLAN OF TREATMENT No Information Insurance Providers Payer Name Payer Address Payer Phone Subscriber Number Group Number Insured Name Patient Relationship to Insured Coverage Start Date Coverage End Date [facility] [address] [place] [address] [phone] [id number] JUICE LYNCH Self - patient is the insured
--- OUTSIDE RECORDS SUMMARY | 2024-10-18 08:00 | XMS_ITS | Continuity of Care Document ---
Author Organization [facility] Address [address] [place] [address] Phone [phone] Social History Type Date Description Comments Sex Unknown Medications Active Medications SIG Qnty Indications Ordering Provider Date Metformin HCL [id number] Tablets ER 24HR Take 1 Tablet By Mouth Twice A Day 180tabs Devauhgn Gandhi M.D. 06/18/2022 Medical Devices Description No Information Available Encounters Description No Information Available Assessments Description No Information Available Plan of Treatment No Information Available Functional Status Description No Information Available Mental Status Description No Information Available Referrals Description No Information Available
--- OUTSIDE RECORDS SUMMARY | 2024-10-18 08:04 | XMS_ITS | Continuity of Care Document ---
Author Organization [facility] Address [address] [place] [address] Phone [phone] Social History Type Date Description Comments Sex Unknown Medications Active Medications SIG Qnty Indications Ordering Provider Date Metformin HCL [id number] Tablets ER 24HR Take 1 Tablet By Mouth Twice A Day 180tabs Devaughn Gandhi M.D. 06/18/2022 Medical Devices Description No Information Available Encounters Description No Information Available Assessments Description No Information Available Plan of Treatment No Information Available Functional Status Description No Information Available Mental Status Description No Information Available Referrals Description No Information Available
--- OUTSIDE RECORDS SUMMARY | 2024-10-18 08:04 | XMS_ITS | Patient Health Record ---
Author Organization Kvng Colón DO, FAC Address [address] [place] [phone] Care Team Providers Care Industrial Relations Representative Name Role Phone Kvng Colón Primary Care Provider ALLERGIES Allergen (clinical drug ingredient) Drug/Non Drug Allergy documented on EMR Reaction Allergy Type Onset Date Status sulfa urticaria Drug Allergy Active RESULTS Component Value Reference Range Notes Complete Blood Count Auto Di ff Reviewed date:12/05/2023 09:01:58 AM Interpretation:Abnormal Performing Lab:[facility], [address] [place] [phone] Notes/Report: White Blood Count 7.8 4.8-10.8 X10*3/uL [...] Panel Reviewed date:12/05/2023 09:01:57 AM Interpretation:Abnormal Performing Lab:[facility], [address] [place] [phone] Notes/Report: Sodium 144 135-145 mmol/L Potassium 4.0 [...] Estimated Glomerular Filt Rate 59 NOTE: For -Grenadian individuals, multiply the result by 1.210. Chronic [...] Acid Reviewed date:12/05/2023 09:01:58 AM Interpretation:Normal Performing Lab:[address] [phone] Notes/Report: Lactic Acid 1.5 0.5-2.0 mmol/L Lipase Reviewed date:12/05/2023 09:01:57 AM Interpretation:Normal Performing Lab:[address] [phone] Notes/Report: Lipase 19 8-78 U/L Urine Culture Reviewed date:12/05/2023 01:10:07 PM Interpretation:Abnormal Performing Lab:[address] [phone] Notes/Report: O:STRAGA Strep agalactiae (Gr p B) Urine Culture Quant Urine Culture > 100,000 cfu/mL Urine Culture Susc N/A Urine Culture Susceptibility not routinely performed on this isolate. Blood Culture (First) Reviewed date:12/10/2023 09:26:14 AM Interpretation:Negative Performing Lab:[address] [phone] Notes/Report: Blood Culture (First) No growth after 5 days. Blood Culture (Second) Reviewed date:12/10/2023 09:26:14 AM Interpretation:Negative Performing Lab:[address] [address] Notes/Report: Blood Culture (Second) No growth after 5 days. UA ClnCatch+Micro w/rflx Cul t Reviewed date:12/05/2023 09:01:57 AM Interpretation:Abnormal Performing Lab:[address] [phone] Notes/Report: Urine, Clean Catch Color Urine Yellow Appearance Urine Cloudy PH 5.5 5.0-9.0 Glucose Urine UA Negative Negative mg/dL Urine Blood Large (3+) Negative Specific [place] - Urine 1.010 1.005-1.025 Urine Protein Negative [...] date:12/06/2023 12:19:19 PM Interpretation:Abnormal Performing Lab: Notes/Report: [address] [address] [address] Scan Report Signed Patient: Luciana Walker MR#: [id number] [birth year] : 1960 Acct:[id number] Age/Sex: 62 / F ADM Date: 12/04/23 Loc: HO.ED Attending Dr: Ordering Physician: Odette Carmona MD Date of Service: 12/04/23 Procedure(s): CT abdomen pelvis wo IV con Accession Number(s): [id number] cc: Kvng Colón DO; Odette Carmona MD [...] MD in OV> 12/04/232202 DD/ 53 TD/TT: Lime Burner: ELIZABETH Urinalysis and Microscopic Reviewed date:12/22/2023 03:51:52 PM Interpretation:Abnormal Performing Lab:[address] [phone] Notes/Report: Color Urine Yellow Appearance Urine Clear PH 5.5 5.0-9.0 Glucose Urine UA Negative Negative mg/dL Urine Blood Negative Negative Specific [place] - Urine 1.020 1.005-1.025 Urine Protein Negative Neg-Trace mg/dL Urine Ketones Negative Negative mg/dL Nitrite Urine Negative Negative Leukocyte Esterase Urine Moderate (2+) Negative RBC Urine 0-2 0-2 /HPF WBC Urine 6-10 0-5 /HPF Squamous Epithelial Cell Urine 0-2 0-2 /HPF Bacteria Urine None Seen None Seen Hyaline Casts Urine 3-5 0-2 /LPF Liver Panel Reviewed date:12/22/2023 02:21:45 PM Interpretation:Abnormal Performing Lab:[facility], [address] [place] [phone] Notes/Report: Bilirubin Total 0.3 0.0-1.0 mg/dL Bilirubin Direct 0.1 0.0-0.5 mg/dL Aspartate Amino Transferase 24 5-31 U/L Alanine Aminotransferase 38 0-31 U/L Total Protein 6.6 6.5-8.0 g/dL Albumin Level 4.0 3.5-5.0 g/dL Alkaline Phosphatase 99 39-117 U/L Urine Culture Reviewed date:12/23/2023 10:48:19 AM Interpretation:Abnormal Performing Lab:[facility], [address] [place] [phone] Notes/Report: O:STRAGA Strep agalactiae (Gr p B) Urine Culture Quant Urine Culture 50,000 to 100,000 cfu/mL Urine Culture CATH CRYSTAL MOUNTER? Urine Culture Susceptibility not routinely performed on this isolate. Complete Blood Count Auto Di ff Reviewed date:12/22/2023 01:41:23 PM Interpretation:Abnormal Performing Lab:[facility], [address] [place] [phone] Notes/Report: White Blood Count 3.8 4.8-10.8 X10*3/uL [...] Panel Reviewed date:12/22/2023 02:21:45 PM Interpretation:Abnormal Performing Lab:[facility], [address] [place] [phone] Notes/Report: Sodium 140 135-145 mmol/L Potassium 4.5 3.3-5.1 mmol/L Chloride 105 96-108 mmol/L Carbon Dioxide 27 22-29 mmol/L Anion Gap 13 12-20 Blood Urea Nitrogen 11 9-16 mg/dL Creatinine 0.73 0.5-1.4 mg/dL Estimated Glomerular Filt Rate > 60 NOTE: For -Grenadian individuals, multiply the result by 1.210. Chronic Kidney Disease: Estimated GFR < 60 mL/min/1.73m2 Severe Kidney Disease: Estimated GFR < 15 mL/min/1.73m2 Glucose Random 150 60-115 mg/dL Calcium 9.4 8.4-10.2 mg/dL Urine Culture Reviewed date:01/08/2024 01:04:06 PM Interpretation:Abnormal Performing Lab:[facility], [address] [place] [phone] Notes/Report: O:STRAGA Strep agalactiae (Gr p B) Urine Culture Quant Urine Culture > 100,000 cfu/mL Urine Culture Susc N/A Urine Culture Susceptibility not routinely performed on this isolate. Complete Blood Count Auto Di ff Reviewed date:02/18/2024 01:52:34 PM Interpretation:Abnormal Performing Lab:[facility], [address] [place] [phone] Notes/Report: White Blood Count 3.5 4.8-10.8 X10*3/uL [...] Microscopic Reviewed date:02/18/2024 03:11:19 PM Interpretation:Abnormal Performing Lab:[facility], [address] [place] [phone] Notes/Report: Color Urine Yellow Appearance Urine Turbid PH 5.5 5.0-9.0 Glucose Urine UA Negative Negative mg/dL Urine Blood Negative Negative Specific [place] - Urine 1.020 1.005-1.025 Urine Protein Negative Neg-Trace mg/dL Urine Ketones Negative Negative mg/dL Nitrite Urine Negative Negative Leukocyte Esterase Urine Small (1+) Negative RBC Urine 0-2 0-2 /HPF WBC Urine 0-5 0-5 /HPF Squamous Epithelial Cell Urine 3-5 0-2 /HPF Bacteria Urine Trace None Seen Hyaline Casts Urine 0-2 0-2 /LPF Comprehensive [place]. Panel Fa st Reviewed date:02/18/2024 03:11:19 PM Interpretation:Abnormal Performing Lab:[facility], [address] [place] [phone] Notes/Report: Sodium 140 135-145 mmol/L Potassium 4.4 3.3-5.1 mmol/L Chloride 107 96-108 mmol/L Carbon Dioxide 25 22-29 mmol/L Anion Gap 12 12-20 Blood Urea Nitrogen 11 9-16 mg/dL Creatinine 0.71 0.5-1.4 mg/dL Estimated Glomerular Filt Rate > 60 NOTE: For -Grenadian individuals, multiply the result by 1.210. Chronic [...] Panel Reviewed date:02/18/2024 03:11:19 PM Interpretation:Normal Performing Lab:[facility], [address] [place] [phone] Notes/Report: Triglycerides 88 <150 mg/dL Desirable Triglyceride: [...] Total Reviewed date:02/18/2024 03:12:12 PM Interpretation:Abnormal Performing Lab:[facility], [address] [place] [phone] Notes/Report: Vitamin D 25-OH Total 21.7 >30 [...] Hormone Reviewed date:02/18/2024 03:11:19 PM Interpretation:Normal Performing Lab:[facility], [address] [place] [phone] Notes/Report: Thyroid Stimulating Hormone 1.03 0.32-4.0 uIU/mL TSH 3rd Generation ([facility]) Microalbumin, Random Reviewed date:02/18/2024 03:11:19 PM Interpretation:Normal Performing Lab:[facility], [address] [place] [phone] Notes/Report: Creatinine Urine 127.11 Microalbumin Urine 17.0 Microalbum/Creatinine Ratio Ur 13.3 <30 ug/mg cr Albumin/Creatinine Ratio Reference Ranges: Normal: < 30 ug/mg creatinine Microalbuminuria: 30 - 300 ug/mg creatinine Clinical Albuminuria: > 300 ug/mg creatinine Hemoglobin A1c Reviewed date:02/18/2024 03:11:54 PM Interpretation:Abnormal Performing Lab:[facility], [address] [place] [phone] Notes/Report: Hemoglobin A1c % 7.0 <6.0 % [...] average glucose, using the formula of the F1B-Trihhqr Average Glucose study (ADAG), Diabetes Care, Vol.31,#8, Apr. 2007 US renal BI Reviewed date:03/10/2024 06:40:36 PM Interpretation:Normal Performing Lab: Notes/Report: [facility] [address] [place] [address] Ultrasound Report Signed Patient: Luciana Walker MR#: [id number] [birth year] : 1960 Acct:[id number] Age/Sex: 63 / F ADM Date: 02/27/24 Loc: HO.HMGCX Attending Dr: Víctor Marte MD Ordering Physician: Víctor Marte MD Date of Service: 02/27/24 Procedure(s): US renal BI Accession Number(s): [id number] cc: Víctor Marte MD; Kvng Colón DO [...] in OV> 03/09/24 2301 DD/ 0842 TD/TT: Lime Burner: MARVIN Vitamin B12 and Folate Reviewed date:08/30/2024 02:47:20 PM Interpretation:Normal Performing Lab:[facility], [address] [place] [phone] Notes/Report: Vitamin B12 321 200-900 pg/mL NORMAL 200-900 PG/ML INDETERMINATE 160-199 PG/ML DEFICIENT < 160 PG/ML Folate 4.6 > or = 4.0 ng/mL Reference Values: > or = 4.0 ng/mL < 4.0 ng/mL suggests folate deficiency Methotrexate, aminopterin and folinic acid (leucovorin) are chemotherapeutic agents whose molecular structures are similar to folate; therefore, the Cut Plug Packer folate assay cannot be used for patients using these drugs. Complete Blood Count Auto Di ff Reviewed date:08/30/2024 01:59:51 PM Interpretation:Abnormal Performing Lab:[facility], [address] [place] [phone] Notes/Report: White Blood Count 4.0 4.8-10.8 X10*3/uL [...] NRBC Abs Auto 0.000 0.0-0.012 X10*3/uL Comprehensive [place]. Panel Fa st Reviewed date:08/30/2024 02:47:20 PM Interpretation:Abnormal Performing Lab:[facility], [address] [place] [phone] Notes/Report: Sodium 141 135-145 mmol/L Potassium 4.5 [...] Panel Reviewed date:08/30/2024 02:47:20 PM Interpretation:Normal Performing Lab:[facility], [address] [place] [phone] Notes/Report: Triglycerides 94 <150 mg/dL Desirable Triglyceride: [...] Hormone Reviewed date:08/30/2024 02:47:20 PM Interpretation:Normal Performing Lab:[facility], [address] [place] [phone] Notes/Report: Thyroid Stimulating Hormone 1.62 0.32-4.0 uIU/mL TSH 3rd Generation ([facility]) Microalbumin, Random Reviewed date:08/30/2024 02:47:20 PM Interpretation:Normal Performing Lab:[facility], [address] [place] [phone] Notes/Report: Creatinine Urine 211.24 Microalbumin Urine 17.0 Microalbum/Creatinine Ratio Ur 8.0 <30 ug/mg cr Albumin/Creatinine Ratio Reference Ranges: Normal: < 30 ug/mg creatinine Microalbuminuria: 30 - 300 ug/mg creatinine Clinical Albuminuria: > 300 ug/mg creatinine Hemoglobin A1c Reviewed date:08/30/2024 02:01:21 PM Interpretation:Normal Performing Lab:[facility], [address] [place] [phone] Notes/Report: Hemoglobin A1c % 5.7 <6.0 % [...] average glucose, using the formula of the F4P-Heczzgd Average Glucose study (ADAG), Diabetes Care, Vol.31,#8, Apr. 2007 REASON FOR REFERRAL Reason Screening colonoscop y Diagnosis 1 Colon cancer screeni ng (Z12.11) Referral Organization Kvng Piedra, FACP Referring Provider First Name Kvng Referring Provider Last Name Katarzyna Referring Provider Speciality Internal M edicine Referred Provider Jason Paula Referred Provider Specialty Gastroentero logy General Notes Meagan Sweet 024 12:11:02 PM EST > referral faxed; specialist's office will call patient; patient aware., Meagan Sweet 08/06/2024 12:51:50 PM EST > Drs. Magallanes and Jeremy will not treat patient because she is established with Dr. Paula, [facility]. Patient aware. Referral to Dr. Paula initiated.KeeMeagan 08/06/2024 12:58:01 PM EST > PLEASE CONTACT PATIENT TO SCHEDULE APPOINTMENT, APPOINTMENT AT ANY LOCATION WITH THIS PROVIDER, Thanks for your help!, SamdanyaMeagan 08/06/2024 12:58:51 PM EST > new referral faxed; specialist's office will contact patient., Jojo Sweetan 08/13/2024 11:19:59 AM EST > referral re-faxed. Referral Priority Routine Referral Appointment Date 09/23/2024 MEDICATIONS Medication SIG (Take, Route, Frequency, Duration) Notes Start Date End Date Status Sertraline HCl 50 MG 1 tablet Orally [...] 1 tablet Orally Once a day Active Meloxicam 15 MG 1 tablet Orally Once a day for 30 days Active clonazePAM 1 MG 1 tablet at bedtime as needed Orally Once a day for 30 days 09/13/2024 Active Ozempic (0.25 or 0.5 MG/DOSE) 2 MG/3ML 1 mg Subcutaneous Once a week for 30 days Active IMMUNIZATIONS Vaccine Route Administration Date Status [...] Notes Problem Essential hypertension (I10) Active confirmed 26592662 Problem Primary osteoarthritis involving multiple joints (M15.0) Active confirmed 428160110 Problem Gastroesophageal reflux disease without esophagitis (K21.9) Active confirmed 793469517 Problem Renal lithiasis (N20.0) Active confirmed 49083926 Problem Reactive depression (F32.9) Active confirmed 23230342 Problem MENDEZ (dyspnea on exertion) (R06.09) Active confirmed 59589699 Problem EBER (obstructive sleep apnea) (G47.33) Active confirmed 95367213 Problem Type 2 diabetes mellitus without complication, without long-term current use of insulin (E11.9) Active confirmed 630370519 Problem Osteoarthritis of right knee, unspecified osteoarthritis type (M17.9) Active confirmed 610399506 Problem Morbid obesity (E66.01) Active confirmed 457346430 Problem Bilateral low back pain without sciatica, unspecified chronicity (M54.5) Active confirmed 279693218 VITAL SIGNS Blood pressure diastolic 72 mm Hg 09/01/2024 Height 64 in 09/01/2024 Blood pressure systolic 122 mm Hg 09/01/2024 Weight 242 lbs 09/01/2024 BMI 41.53 kg/m2 09/01/2024 Encounters Encounter Location Date Provider Diagnosis Kvng Colón DO, [address] [id number] 10/22/2023 Kvng Colón Essential hypertensi on I10 ; Type 2 diabetes mellitus without complication, without long-term current use of insulin E11.9 ; Gastroesophageal reflux disease without esophagitis K21.9 ; Osteoarthritis of right knee, unspecified osteoarthritis type M17.9 ; Primary osteoarthritis involving multiple joints M15.0 ; Reactive depression F32.9 and EBER (obstructive sleep apnea) G47.33 Kvng Colón DO, [address] [id number] 01/20/2024 Kvng Colón Essential hypertensi on I10 ; Type 2 diabetes mellitus without complication, without long-term current use of insulin E11.9 ; Renal lithiasis N20.0 ; Reactive depression F32.9 ; EBER (obstructive sleep apnea) G47.33 ; Osteoarthritis of right knee, unspecified osteoarthritis type M17.9 ; Gastroesophageal reflux disease without esophagitis K21.9 and Primary osteoarthritis involving multiple joints M15.0 Kvng Colón DO, [address] [id number] 05/25/2024 Kvng Colón DO, [address] [id number] 06/02/2024 Kvng Colón Morbid obesity E66.0 1 ; Type 2 diabetes mellitus without complication, without long-term current use of insulin E11.9 ; Essential hypertension I10 ; Reactive depression F32.9 ; Gastroesophageal reflux disease without esophagitis K21.9 ; Osteoarthritis of right knee, unspecified osteoarthritis type M17.9 ; Primary osteoarthritis involving multiple joints M15.0 and EBER (obstructive sleep apnea) G47.33 Kvng Colón DO, [address] [id number] 09/01/2024 Kvng Colón Type 2 diabetes obdulio itus without complication, without long-term current use of insulin E11.9 ; Essential hypertension I10 ; Reactive depression F32.9 ; Gastroesophageal reflux disease without esophagitis K21.9 ; Osteoarthritis of right knee, unspecified osteoarthritis type M17.9 ; Primary osteoarthritis involving multiple joints M15.0 and EBER (obstructive sleep apnea) G47.33 Kvng Colón DO, [address] [id number] 06/23/2024 Kvng Colón DO, [facility] [address] [place], [place] [id number] 11/12/2023 Kvng Colón EBER (obstructive sle ep apnea) G47.33 and Type 2 diabetes mellitus without complication, without long-term current use of insulin E11.9 Kvng Colón DO, [address] [id number] 11/17/2023 Kvng Colón DO, [address] [id number] 12/03/2023 Kvng Colón DO, [address] [id number] 12/09/2023 Kvng Colón Type 2 diabetes obdulio itus without complication, without long-term current use of insulin E11.9 Kvng Colón DO, [address] [id number] 12/15/2023 Kvng Colón EBER (obstructive sle ep apnea) G47.33 Kvng Colón DO, [address] [id number] 12/22/2023 Kvng Colón Renal lithiasis N20. 0 Kvng Colón DO, [address] [id number] 02/20/2024 Kvng Colón DO, [address] [id number] 02/24/2024 Kvng Colón DO, [address] [id number] 03/01/2024 Kvng Colón DO, [address] [id number] 03/17/2024 Kvng Colón Reactive depression F32.9 Kvng Colón DO, [address] [id number] 04/21/2024 Kvng Colón Reactive depression F32.9 Kvng Colón DO, [address] [id number] 04/28/2024 Kvng Colón DO, [address] [id number] 05/04/2024 Kvng Colón DO, [address] [id number] 05/19/2024 Kvng Colón Osteoarthritis of ri ght knee, unspecified osteoarthritis type M17.9 Kvng Colón DO, [facility] [address] [place], [place] [id number] 07/30/2024 Kvng Colón Type 2 diabetes obdulio itus without complication, without long-term current use of insulin E11.9 ; Reactive depression F32.9 ; Morbid obesity E66.01 and Primary osteoarthritis involving multiple joints M15.0 Kvng Colón DO, [facility] [address] [place], [place] [id number] 07/30/2024 Kvng Colón Kvng Colón DO, [address] [id number] 08/23/2024 Kvng Colón Fatigue, unspecified type R53.83 Kvng Colón DO, [address] [id number] 09/13/2024 Kvng Colón Reactive depression F32.9 ; Type 2 diabetes mellitus without complication, without long-term current use of insulin E11.9 and Osteoarthritis of right knee, unspecified osteoarthritis type M17.9 Kvng Colón DO, [facility] [address] [place], [place] [id number] 02/18/2024 Kvng Colón Reactive depression F32.9 ; [...] Assessment Notes Treatment Notes Treatment Clinical Notes 10/22/2023 Essential hypertensi on (ICD-10 - I10) [...] 08/23/2024 Fatigue, unspecified type (ICD-10 - R53.83) 09/13/2024 Reactive depression (ICD-10 - F32.9) 02/18/2024 Essential hypertensi on (ICD-10 - I10) 02/18/2024 Reactive depression (ICD-10 - F32.9) 10/22/2023 Gastroesophageal reflux disease without esophagitis (ICD-10 - K21.9) 01/20/2024 Renal lithiasis (ICD-10 - N20.0) Keep well hydrated. Follow up with Urology 06/02/2024 Essential hypertensi on (ICD-10 - I10) 09/01/2024 Reactive depression (ICD-10 - F32.9) 11/12/2023 Type 2 diabetes mellitus without complication, without long-term current use of insulin (ICD-10 - E11.9) 07/30/2024 Reactive depression (ICD-10 - F32.9) 09/13/2024 Type 2 diabetes mellitus without complication, without long-term current use of insulin (ICD-10 - E11.9) 02/18/2024 Gastroesophageal reflux disease without esophagitis (ICD-10 - K21.9) 10/22/2023 Osteoarthritis of right knee, unspecified osteoarthritis type (ICD-10 - M17.9) 01/20/2024 Reactive depression (ICD-10 - F32.9) 06/02/2024 Reactive depression (ICD-10 - F32.9) 09/01/2024 Gastroesophageal reflux disease without esophagitis (ICD-10 - K21.9) 07/30/2024 Morbid obesity (ICD- 10 - E66.01) 09/13/2024 Osteoarthritis of right knee, unspecified osteoarthritis type (ICD-10 - M17.9) 02/18/2024 Osteoarthritis of right knee, unspecified osteoarthritis type (ICD-10 - M17.9) 10/22/2023 Primary osteoarthrit is involving multiple joints [...] E11.9) Check lab work as previously ordered 10/22/2023 Reactive depression (ICD-10 - F32.9) 01/20/2024 Osteoarthritis of right knee, unspecified osteoarthritis type (ICD-10 - M17.9) Follow up with Orthopedics 06/02/2024 Osteoarthritis of right knee, unspecified osteoarthritis type (ICD-10 - M17.9) 09/01/2024 Primary osteoarthrit is involving multiple joints (ICD-10 - M15.0) Begin a multivitamin once a day 02/18/2024 Primary osteoarthrit is involving multiple joints (ICD-10 - M15.0) 10/22/2023 EBER (obstructive sle ep apnea) (ICD-10 [...] Name Order Date BONE DENSITY DEXA 07/30/2024 Insurance Providers Payer Name Payer Address Payer Phone Subscriber Number Group Number Insured Name Patient Relationship to Insured Coverage Start Date Coverage End Date [facility] [address] [place] [phone] [id number] Luciana Walker Self - patient is the insured [facility] [address] [place] [phone] [id number] Luciana Walker Self - patient is the [...]
== END 2024-10-18 08:16 | disposition home or self-care (01) ==
PROVIDERS: PCP Internal Medicine; Visit Provider Urology
DX: R82.994 Hypercalciuria (principal); Z87.442 Personal history of urinary calculi
CPT/HCPCS: 98005

== ENCOUNTER 2024-11-02 13:01 | Outpatient (AMB) | payer OTHER, SELFPAY ==
--- NOTE | 2024-11-02 13:19 | A.OFFPC_ITS ---
Vital Signs 11/02/24 13:20 Height 5 ft 3.75 in Weight 237 lb BMI 41.0 BP 126/74 Blood Pressure Location Rt brachial Position Sitting Pulse 97 Temp 97.1 F Pulse Oximetry (%) 100 Intake Visit Reasons: physical Leadership Development Instructor Required: No Allergies Sulfa (Sulfonamide Antibiotics) Allergy (Unknown, Verified 11/02/24 14:44) HIVES Medication List - Last Reconciled 11/02/24 by Rufino Valero MD acetaminophen 650 mg PO Q4H PRN albuterol sulfate 90 mcg/actuation inhalation atorvastatin 10 mg PO DAILY cetirizine (Zyrtec) 10 mg PO DAILY PRN cholecalciferol (vitamin D3) 50 mcg PO DAILY clonazepam 1 mg PO BEDTIME PRN gabapentin 300 mg PO TID hydrochlorothiazide 25 mg PO DAILY PRN lansoprazole 15 mg PO DAILY meloxicam 15 mg PO DAILY PRN metformin ER 1,500 mg PO DAILY ondansetron 4 mg PO DAILY oxycodone 5 mg PO DAILY PRN semaglutide (Ozempic) 1 mg (0.75 mL) subcut QWEEK sertraline 50 mg PO DAILY tamsulosin (Flomax) 0.4 mg PO BEDTIME PRN tamsulosin (Flomax) 0.4 mg PO DAILY HPI physical HPI Details 63-year-old female presents to the offic e requesting an annual physical. In addition, patient is complaining of pain in both her knees. Patient underwent a right knee replacement in 2023. She reports the procedure did not go well as she still has residual pain in the knee. She is continuing physical therapy for the knee and has an appointment with the orthopedic surgeon in the coming month. Now her left knee is also painful and has been diagnosed with meniscal injury. Due to this discomfort and disability, patient is unable to work and she has also lost her job because of this disability. As a result patient is very depressed. She is on sertraline. In addition patient has had multiple urinary calculi that has caused her significant discomfort especially on the right lower back and groin. She is seeing a urologist and has been started on tamsulosin. Patient is also taking Ozempic for weight loss. She has lost 70 lb after she started the medication. She is concerned if Ozempic is causing the renal calculi. Patient is applied for disability and would like me to assist her in the process. 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 BMI result Body Mass Index 41.0 BMI Assessment/Plan discussion: High (1 lb per week weight loss suggested.) BMI High, discussed plan: lifestyle, weight reduction and dietary Tobacco/Smoking Status: Tobacco use Status Patient Tobacco Use Status Never used Tobacco 11/02/24 13:26 Const General: cooperative and healthy appearing Nutritional Appearance: well nourished Orientation/consciousness: patient oriented x3 Limitations: no limitations HENMT Head: Yes normal to inspection Eyes General: appearance normal, both eyes and all related structures Neck Neck: Yes normal visual inspection Chest Chest palpation & inspection: normal palpation of entire chest wall Resp Effort & Inspection: normal respiratory effort Neuro General: patient oriented x3 Extrem Other: Right and left knees: Discomfort on palpation. Able to flex and extend with minimal discomfort. Coding Level of Care Code New Pt Level 4 (60871) New Pt Prev Care 40-64y(23177) Diagnoses Right flank pain R10.9 Unilateral primary osteoarthritis, left knee M17.12 Osteoarthritis of right knee M17.11 Diabetes E11.9 Obesity E66.9 Annual physical exam Z00.00 Assessment & Plan Assessment & Plan (1) Right flank pain: Code(s): R10.9 - Unspecified abdominal pain Category: Medical Plan: Patient has regular follow-up with the urologist. Continue Flomax. Oxycodone, 5 pills were prescribed should she have any new pains. (2) Unilateral primary osteoarthritis, left knee: Code(s): M17.12 - Unilateral primary osteoarthritis, left knee Category: Medical Plan: Continue knee strengthening exercises. (3) Osteoarthritis of right knee: Code(s): M17.11 - Unilateral primary osteoarthritis, right knee Category: Medical Plan: Patient has underwent a complete right knee replacement. She is undergoing physical therapy to strengthen the muscles around the knee. (4) Diabetes: Code(s): E11.9 - Type 2 diabetes mellitus without complications Category: Medical Plan: Blood work shows A1c in range. (5) Obesity: Code(s): E66.9 - Obesity, unspecified Category: Medical Plan: There is no direct correlation between Ozempic use and renal calculi. Patient was advised to avoid dehydration. (6) Annual physical exam: Code(s): Z00.00 - Encounter for general adult medical examination without abnormal findings Plan: Screening mammogram has been ordered. Orders: Orders MM screening mammo BI Today Rufino Valero MD Z12.31 - Encounter for screening mammogram for malignant neoplasm of breast Medications: New oxycodone Partial Fill upon patient request. 5 mg PO DAILY PRN 5 tabs 0RF pain Rufino Valero MD tamsulosin (Flomax) 0.4 mg PO DAILY 30 caps 1RF Rufino Valero MD Changed From tamsulosin (Flomax) 0.4 mg PO BEDTIME 14 caps 0RF To tamsulosin (Flomax) 0.4 mg PO BEDTIME PRN Víctor Marte MD Refilled semaglutide (Ozempic) 1 mg (0.75 mL) subcut QWEEK 3 mL 3RF Rufino Valero MD
[2024-11-02 13:20] VITALS: BP 126/74; PULSE 97; TEMP 36.2; O2SAT 100; BMI 41.0
--- OUTSIDE RECORDS SUMMARY | 2024-11-02 14:09 | XMS_ITS ---
Author Organization Kvng Colón DO [facility] Address [address], [place] [id number] Care Team Providers Care Cue Worker Name Role Phone KatarzynaKvng Primary Care Provider [...] Location Date Provider Diagnosis Kvng Colón DO, [facility] [address], [place] [phone] 09/13/2024 Kvng Colón Reactive depression F32.9 ; [...]
--- OUTSIDE RECORDS SUMMARY | 2024-11-02 14:09 | XMS_ITS | Patient Health Record ---
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) Active confirmed Plan Of Treatment Pending Test Test Name Order Date Hepatic Function Panel (7) 05/14/2021 Insurance Providers Payer Name Payer Address Payer Phone Subscriber Number Group Number Insured Name Patient Relationship to Insured Coverage Start Date Coverage End Date [facility] [address] [place] [address] [phone] [id number] Luciana Walker Self - patient is the insured Medical (General) History Medical History History ICD Code GERD Osteoarthritits Depression Anxiety Obesity Obstructive sleep apnea on CPAP Vitamin D Deficiency HTN diabetes mellitus Surgical History Surgery Date(Month/Year) knee surgery
--- OUTSIDE RECORDS SUMMARY | 2024-11-02 14:09 | XMS_ITS ---
Author Organization [facility] Address [address] [place] [address] Care Team Providers Care Cdl Service Technician Name Role Phone Katarzyna (RETIRED) Kvng TOLEDO Primary Care Provid er Unavailable Kolby Magallanes Jr Unavailable [phone] Encounters Encounter Location Date Provider Diagnosis [facility] [address] [place] [phone] 08/06/2024 Kolby Magallanes Jr PLAN OF TREATMENT No Information
--- OUTSIDE RECORDS SUMMARY | 2024-11-02 14:09 | XMS_ITS ---
Author Organization Kvng Colón DO [facility] Address [address] [place], [place] [id number] Care Team Providers Care Flat Spring Assembler Name Role Phone KatarzynaKvng brown Primary Care Provider [phone] RESULTS Component Value Reference Range Notes Vitamin B12 and Folate Reviewed date:08/30/2024 02:47:20 PM Interpretation:Normal Performing Lab:[facility], [address] [place] [id number] Notes/Report: Vitamin B12 321 200-900 pg/mL NORMAL 200-900 PG/ML INDETERMINATE 160-199 PG/ML DEFICIENT < 160 PG/ML Folate 4.6 > or = 4.0 ng/mL Reference Values: > or = 4.0 ng/mL < 4.0 ng/mL suggests folate deficiency Methotrexate, aminopterin and folinic acid (leucovorin) are chemotherapeutic agents whose molecular structures are similar to folate; therefore, the Paper Bag Inspector folate assay cannot be used for patients using these drugs. REASON FOR VISIT Message Encounters Encounter Location Date Provider Diagnosis Kvng Colón DO, FACP [address] [place], [place] [phone] 08/23/2024 Kvng Colón Fatigue, unspecified type R53.83 ASSESSMENTS Encounter Date Diagnosis Assessment Notes Treatment Notes Treatment Clinical Notes 08/23/2024 Fatigue, unspecified type (ICD-10 - R53.83) PLAN OF TREATMENT No Information
--- OUTSIDE RECORDS SUMMARY | 2024-11-02 14:10 | XMS_ITS ---
Author Organization Kvng Colón DO, FACP Address [address] [place], [place] [address] Care Team Providers Care Automatic Fabric Cutter Name Role Phone Kvng Colón Primary Care [...] Location Date Provider Diagnosis Kvng Colón DO, [address] [id number] 09/01/2024 Kvng Colón Type 2 diabetes obdulio [...] General Examination GENERAL APPEARANCE: in no ac [place] distress, well developed, well nourished HEAD: normocephalic, atrau matic HEART: no murmurs, regular rate and rhythm, S1, S2 normal LUNGS: clear to auscultatio n bilaterally ABDOMEN: normal, bowel sounds present, soft, nontender, nondistended SKIN: warm and dry EXTREMITIES: no edema PSYCH: alert, oriented, cog nitive function intact, less?anxious appearing, mood less depressed
--- OUTSIDE RECORDS SUMMARY | 2024-11-02 14:10 | XMS_ITS | Patient Health Record ---
Author Organization [facility] Address [address] [place] [address] Care Team Providers Care Distribution Spec Name Role Phone Katarzyna (RETIRED) Kvng TOLEDO Primary Care Provid er Unavailable Elpidio Meng, Kolby Unavailable REASON FOR REFERRAL No Information SOCIAL HISTORY Sex Assigned At : Social History Observation Description Sex Assigned At Unknown Encounters Encounter Location Date Provider Diagnosis [facility] [address] [place] [address] 08/06/2024 Kolby Magallanes Jr PLAN OF TREATMENT No Information Insurance Providers Payer Name Payer Address Payer Phone Subscriber Number Group Number Insured Name Patient Relationship to Insured Coverage Start Date Coverage End Date [facility] (NEEDS REFERRA L) [address] [place] [address] [phone] [id number] JUICE LYNCH Self - patient is the insured
== END 2024-11-02 14:01 | disposition home or self-care (01) ==
LOC: HO.HMCSH 13:01
PROVIDERS: PCP Internal Medicine; Visit Provider Internal Medicine
DX: Z00.00 Encounter for general adult medical examination without abnormal findings (principal); M17.0 Bilateral primary osteoarthritis of knee; E66.9 Obesity, unspecified; Z68.41 Body mass index [BMI] 40.0-44.9, adult; E11.9 Type 2 diabetes mellitus without complications; R10.9 Unspecified abdominal pain

== ENCOUNTER → 2024-11-02 13:01 | Outpatient (BNVA) | payer OTHER, SELFPAY | PROVIDERS: PCP Internal Medicine; Visit Provider Internal Medicine | DX: Z00.01 Encounter for general adult medical examination with abnormal findings (principal); R10.9 Unspecified abdominal pain; M17.12 Unilateral primary osteoarthritis, left knee; M17.11 Unilateral primary osteoarthritis, right knee; E11.9 Type 2 diabetes mellitus without complications; E66.9 Obesity, unspecified; Z67.41 Type O blood, Rh negative; Z71.3 Dietary counseling and surveillance | CPT/HCPCS: 99202; 99386 ==

== ENCOUNTER 2024-11-25 14:28 | Outpatient (REF) | payer OTHER, SELFPAY ==
[2024-11-25 14:52] LABS: MANUAL DIFF FLAG NO
[2024-11-25 15:55] LABS: Basophils Percent Auto 0.4 % (0-2); Eosinophils Absolute Auto 0.1 X10*3/uL (0.0-0.4); Eosinophils Percent Auto 1.6 % (0-4); Hematocrit 40.5 % (37.0-47.0); Hemoglobin 13.2 g/dl (12.0-16.0); Imm Gran Abs Auto 0.02 X10*3/uL (0.00-0.03); Imm Gran Pct Auto 0.4 % (0.0-0.4); Lymphocytes Absolute Auto 1.6 X10*3/uL (1.2-4.9); Lymphocytes Percent Auto 28.3 % (20-40); Mean Corpuscular HGB Conc 32.6 g/dl (31.0-35.0); Mean Corpuscular Hemoglobin 27.4 pg (27.0-33.0); Mean Corpuscular Volume 84.2 fL (80.0-98.0); Mean Platelet Volume 8.8 fL (9.4-12.3); Monocytes Absolute Auto 0.4 X10*3/uL (0.1-1.2); Monocytes Percent Auto 6.4 % (2-11); Neutrophils Absolute Auto 3.5 x10*3/uL (2.0-8.3); Neutrophils Percent Auto 62.9 % (45-73); Platelet Count 290 X10*3/uL (160-400); Red Blood Count 4.81 X10*6/uL (4.20-5.50); Red Cell Distribution Width 14.5 % (11.0-16.0); White Blood Count 5.5 X10*3/uL (4.8-10.8)
[2024-11-25 17:01] LABS: Alanine Aminotransferase 23 U/L (0-31); Alkaline Phosphatase 94 U/L (39-117); Anion Gap 14 (12-20); Aspartate Amino Transferase 17 U/L (5-31); Bilirubin Total 0.5 mg/dL (0.0-1.0); Blood Urea Nitrogen 16 mg/dL (9-16); Calcium 9.5 mg/dL (8.4-10.2); Carbon Dioxide 25 mmol/L (22-29); Chloride 109 mmol/L (96-108); Estimated Glomerular Filt Rate > 60; Glucose Random 124 mg/dL (60-115); Phosphorus 2.9 mg/dL (2.7-4.5); Potassium 3.8 mmol/L (3.3-5.1); Sodium 144 mmol/L (135-145); Total Protein 6.6 g/dL (6.5-8.0)
[2024-11-25 17:02] LABS: Parathyroid Hormone Intact 60.7 pg/mL (8.7-77.1)
[2024-11-25 17:29] LABS: Creatinine, mg/dL 62.06
[2024-11-25 17:30] LABS: Creatinine, mg/dL 62.56
[2024-11-25 17:43] LABS: Creatinine, mg/dL 64.31
--- OUTSIDE RECORDS SUMMARY | 2024-11-25 17:50 | XMS_ITS | Patient Health Record ---
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 Problem 56816274603735269 Congenital metatarsus adductus, 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) Active confirmed Plan Of Treatment Pending Test Test Name Order Date Hepatic Function Panel (7) 05/14/2021 Insurance Providers Payer Name Payer Address Payer Phone Subscriber Number Group Number Insured Name Patient Relationship to Insured Coverage Start Date Coverage End Date [facility] [address] [place] [address] [phone] [id number] Luciana Walker Self - patient is the insured Medical (General) History Medical History History ICD Code GERD Osteoarthritits Depression Anxiety Obesity Obstructive sleep apnea on CPAP Vitamin D Deficiency HTN diabetes mellitus Surgical History Surgery Date(Month/Year) knee surgery
--- OUTSIDE RECORDS SUMMARY | 2024-11-25 17:50 | XMS_ITS | Data Portability ---
Author Organization [facility] [address] Address [address] [place] [address] Care Team Providers Care Delivery Truck Driver Name Role Phone MARIA C ACHARYA Primary Care Provider Assessment No assessment recorded. Plan of Treatment Reminders Order Date Submit Date Provider Last Modified By Organization Details Last Modified Time Details Appointments None recorded. Lab None recorded. Referral resource protection specialist referral 2022 023 [email or web address] 1 Not available 3 08:08:10 Procedures None recorded. Surgeries None recorded. Imaging None recorded. Medication Orders None recorded. Patient TargetsNo targets recorded. Patient Instructions Encounter Date Encounter Id Patient Instructions Last Modified By Organization Details Last Modified Time 05/04/2023 [id number] toenail or fingernail avulsion: care instructions [email or web address] Not available 05/04/2023 10:23:43 Reason for Referral Alarm Security Or Surveillance Monitor Referral for Pain of toe of right foot Referring Physician: [facility], Encounter Date: 05/04/2023 Problems Name Problem SNOMED Code Status Onset Date Resolution Date Notes Provider Name and Address Organization Details Recorded Time Insomnia 667984923 Active 2022 Hallie Jenna null, PA - [facility] 3 10:08:22 Diabetes mellitus 49839572 Active 2022 Hallie Lovelock null, PA - [facility] 3 10:08:27 Dependence on continuous positive airway pressure ventilation 868126038 Active 2022 Hallie Jenna null, PA - [facility] 3 10:08:34 Problem Notes None recorded. Medical Equipment None Reported. Allergies Allergen ID Allergen Name Allergen Category Reaction Reaction Severity Criticality Documentation Date Start Date Code Code System Note Provider Name and Address Organization Details Recorded Time 807138 Substance with sulfonami de structure and antibacte rial mechanism of action (substanc e) medicatio n Not available Not available Not available 05/04/2023 02910 8003 SNOMED OLGA Uribe - [facility] [...] weight Body mass index (BMI) Body height Pain severity - 0-10 verbal numeric rating [Score] - Reported Respiratory rate Body temperature Oxygen saturation Oxygen saturation in Arterial blood by Pulse oximetry Heart rate Systolic blood pressure Diastolic blood pressure Provider Name and Address Organization Details Last Updated DateTime 3 630086. 94 g 43.6 kg/m2 167.64 cm 4 20 /min 97.8 [degF] 97 % 97 [...] split virus, quadrivalent, preservative 7 completed Hallie Lovelock null, PA - [facility] 05/04/2023 10:07:26 [...] 30 mcg/0.3 mL dose 1 completed Hallie Lovelock null, PA - [facility] 05/04/2023 10:07:26 COVID-19, mRNA, LNP-S, PF, 30 mcg/0.3 mL dose, arlen-sucrose 2 completed Hallie Jenna null, PA - [facility] 05/04/2023 10:07:26 COVID-19, mRNA, LNP-S, bivalent, PF, 30 mcg/0.3 mL dose 2 completed Hallie Lovelock null, PA - [facility] 05/04/2023 10:07:26 pneumococcal polysaccharide PPV23 1 completed Hallie Jenna null, PA - [facility] 05/04/2023 10:07:26 Influenza, split virus, trivalent, preservative 0 completed Hallie Lovelock null, PA - [facility] 05/04/2023 10:07:26 Influenza, split virus, trivalent, preservative 4 completed Hallie Lovelock null, PA - [facility] 05/04/2023 10:07:26 Influenza, split virus, quadrivalent, PF 8 completed Hallie Lovelock null, PA - [facility] 05/04/2023 10:07:26 Influenza, split virus, quadrivalent, PF 0 completed Hallie Lovelock null, PA - [facility] 05/04/2023 10:07:26 Influenza, split virus, quadrivalent, PF 1 completed Hallie Lovelock null, PA - [facility] 05/04/2023 10:07:26 Past Encounters Encounter ID Performer Location Encounter Start Date Encounter Closed Date Diagnosis/Indication Diagnosis SNOMED-CT Code Diagnosis ICD10 Code Diagnosis Note [id number] [address] [address] 09/04/2018 08:28:53 09/04/2018 09:15:19 [id number] [address] [address] 11/08/2017 14:51:45 11/08/2017 15:52:09 [id number] [place] [address] [place] [address] 05/04/2023 09:47:30 05/04/2023 10:26:26 Pain of toe of right foot [id number] 98336 M79.674 partial toenail avulsionre commend epsom salt [...] Carreon Member ID Guarantor Name 11/08/2017 1 [facility] Luciana Elizalde Denise [id number] Luciana Elizalde Denise 05/04/2023 1 [facility] [id number] Luciana Walker [id number] Luciana Walker Notes Date Note Type Note Provider Name and Address Organization Details Recorded Time 05/04/2023 text/html ToesReported bypatient.Notes:62 yo female c/o R toe painbanged toe under dressed and ripped toenail partially off+ bleedingminimal swelling+ pain - no pain with ambulation only when touching itno bruisingno redness Ron Huang, DO [address] [place], [address], [place] - [facility] 05/04/2023 10:28:24 OBGyn Episode No OBEpisode recorded.
--- OUTSIDE RECORDS SUMMARY | 2024-11-25 17:51 | XMS_ITS | Patient Health Record ---
Author Organization [facility] Address [address] [place] [address] Care Team Providers Care Location Director Name Role Phone Katarzyna (RETIRED) Kvng TOLEDO Primary Care Provid er Unavailable Elpidio Meng, Kolby Unavailable Reason For Referral No Information Encounters Encounter Location Date Provider Diagnosis [facility] [address] [place] [address] 08/06/2024 Kolby Magallanes Jr Plan Of Treatment No Information Insurance Providers Payer Name Payer Address Payer Phone Subscriber Number Group Number Insured Name Patient Relationship to Insured Coverage Start Date Coverage End Date [facility] (NEEDS REFERRA L) [address] [place] [address] [id number] JUICE LYNCH Self - patient is the insured
--- OUTSIDE RECORDS SUMMARY | 2024-11-25 17:51 | XMS_ITS ---
Author Organization [facility] Address [address] [place] [address] Care Team Providers Care Copy Chaser Name Role Phone Katarzyna (RETIRED) Kvng TOLEDO Primary Care Provid er Unavailable Elpidio Meng, Kolby Unavailable Encounters Encounter Location Date Provider Diagnosis [facility] [address] [place] [address] 08/06/2024 Kolby Magallanes Jr Plan Of Treatment No Information Progress Notes * SYED, JACKIEB:1960 (63 yo F)Acc No.[id number]:08/06/2024 Patient:?JUICE LYNCH :1960???Age:63 Y???Sex:Female Address:[address] [place], [address] * true * Date:? Generated for Irena castro/Michelle/eTransmitting on:?11/25/2024 05:50 PM EST
--- OUTSIDE RECORDS SUMMARY | 2024-11-25 17:51 | XMS_ITS | Continuity of Care Document ---
Author Organization [facility] Address [address] [place] [address] Phone [phone] Social History Type Date Description Comments Sex Unknown Medications Active Medications SIG Qnty Indications Ordering Provider Date Metformin HCL PE384yi Tablets ER 24HR Take 1 Tablet By Mouth Twice A Day 180tabs Devaughn Gandhi M.D. 06/18/2022 Medical Devices Description No Information Available Encounters Description No Information Available Assessments Description No Information Available Plan of Treatment No Information Available Functional Status Description No Information Available Mental Status Description No Information Available Referrals Description No Information Available
[2024-11-25 18:18] LABS: Creatinine, 24Hr Urine 1.1 G/Day (1.0-2.0); Total Volume 24 Hour Urine 1700 mL
[2024-11-25 18:19] LABS: Creatinine, 24Hr Urine 1.1 G/Day (1.0-2.0); Total Volume 24 Hour Urine 1700 mL
[2024-11-25 19:18] LABS: Creatinine, 24Hr Urine 1.1 G/Day (1.0-2.0); Sodium 24 Hr Urine 168.3 mmol/Day (40-220); Total Volume 24 Hour Urine 1700 mL
[2024-11-30 16:39] LABS: 24hr Urine Total Volume 1700 mL; Citric Acid, 24hr Urine 517 mg/24 h (100-1300); Citric Acid/Creat Ratio 24U 475 mg/g creat (180-1070); Creatinine, 24U 1.09 g/24 h (0.50-2.15)
[2024-12-02 22:43] LABS: Calcium, 24 Hr Urine 182 mg/24 h; Calcium/Creatinine Ratio 173 mg/g creat (30-275); Creatinine 24Hr Urine 1.05 g/24 h (0.50-2.15)
[2024-12-03 05:19] LABS: 24hr Urine Total Volume 1700 mL
== END 2024-11-25 14:29 | disposition home or self-care (01) ==
LOC: HO.LAB 14:28
PROVIDERS: PCP Internal Medicine; Visit Provider Internal Medicine Hypertension Specialist
DX: Z87.442 Personal history of urinary calculi (principal); R82.994 Hypercalciuria
CPT/HCPCS: 36415; 80053; 82306; 82340; 82507; 82570; 83945; 83970; 84100; 84300; 84560; 85025

== ENCOUNTER 2024-11-29 09:43 | Outpatient (AMB) | payer OTHER, SELFPAY ==
[2024-11-29 09:45] VITALS: BP 148/86; PULSE 101; O2SAT 98; BMI 42.6
--- NOTE | 2024-11-29 09:45 | HO.NEPHOV_ITS ---
Vital Signs 11/29/24 09:45 Height 5 ft 3.75 in Weight 246 lb BMI 42.6 BP 148/86 H Blood Pressure Location Rt brachial Position Sitting Pulse 101 H Pulse Source Pulse Oximeter Pulse Oximetry (%) 98 Oxygen Delivery Method Room Air Intake Visit Reasons: 6-7 week f/u/ LVM Autom[employer] Glass Installer Required: No Accompanied by: Self / Same As Patient Allergies Sulfa (Sulfonamide Antibiotics) Allergy (Unknown, Verified 11/29/24 09:48) HIVES Medication List - Last Reconciled 11/29/24 by Josef Ontiveros MD acetaminophen 650 mg PO Q4H PRN albuterol sulfate 90 mcg/actuation inhalation atorvastatin 10 mg PO DAILY cetirizine (Zyrtec) 10 mg PO DAILY PRN cholecalciferol (vitamin D3) 50 mcg PO DAILY clonazepam 1 mg PO BEDTIME PRN gabapentin 300 mg PO TID hydrochlorothiazide 25 mg PO DAILY PRN lansoprazole 15 mg PO DAILY meloxicam 15 mg PO DAILY PRN metformin ER 1,500 mg PO DAILY ondansetron 4 mg PO DAILY oxycodone 5 mg PO DAILY PRN semaglutide (Ozempic) 1 mg (0.75 mL) subcut QWEEK sertraline 50 mg PO DAILY tamsulosin (Flomax) 0.4 mg PO BEDTIME PRN tamsulosin (Flomax) 0.4 mg PO DAILY HPI Comments Details: Luciana is a pleasant 63-year-old woman with a history of significant arthritis and recently underwent knee replacement. She developed flank pain and was found to have right hydronephrosis. She had a obstructing calculi which she passed. She was seen by Urology and underwent workup. January of 2024 urine study showed excessive sodium, uric acid, calcium. Total volume was 2 L He has been referred for evaluation of hypercalciuria. She has started a weight loss diet. She has been eating high amounts of protein including animal proteins. She is on Ozempic. So far she was lost about 70 lb. At present she has no urinary symptoms like dysuria urgency increased frequency or hematuria. No flank pain. No nausea or vomiting. No abdominal pain. No shortness of breath no fever no rash. 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 Lungs entry equal no rales. Heart S1-S2 heard no gallop or rub. Abdomen soft nontender. Neuro alert awake oriented. No asterixis. Extremities no edema. Results Reviewed Nephrology Results: Hgb 13.2 g/dl (12.0-16.0) 11/25/24 WBC 5.5 X10*3/uL (4.8-10.8) 11/25/24 Plt Count 290 X10*3/uL (160-400) 11/25/24 Sodium 144 mmol/L (135-145) 11/25/24 Potassium 3.8 mmol/L (3.3-5.1) 11/25/24 Chloride 109 mmol/L (96-108) H 11/25/24 Carbon Dioxide 25 mmol/L (22-29) 11/25/24 BUN 16 mg/dL (9-16) 11/25/24 Creatinine 0.82 mg/dL (0.5-1.4) 11/25/24 Calcium 9.5 mg/dL (8.4-10.2) 11/25/24 Phosphorus 2.9 mg/dL (2.7-4.5) 11/25/24 PTH Intact 60.7 pg/mL (8.7-77.1) 11/25/24 Renal US 10/07/24 Assessment & Plan Assessment & Plan (1) Hypercalciuria: Code(s): R82.994 - Hypercalciuria Category: Medical (2) History of kidney stones: Code(s): Z87.442 - Personal history of urinary calculi Category: Medical Plan 63-year-old woman with arthritis obesity and history of nephrolithiasis has hypercalciuria. Upon reviewing the 24 urine collection he she clearly has hypercalciuria along with increased urinary sodium, uric acid and phosphorus excretion. Urine pH was also low at 5.3. All of these findings are probably related to the excessive animal protein intake. The goal is to minimize future stone formation. I have encouraged her to stay on low-sodium diet. She should cut back on animal protein intake and she can certainly increase plan proteins. Plant proteins are usually alkaline. Maintain urine output of at least 2 L by consuming more than 2.5 L of fluids. The oxalate excretion was 33. She should continue to stay on a low oxalate diet. Increase fluids with citrate intake like lemonade. She has been on furosemide p.r.n.. Furosemide can increase urinary calcium excretion. She has been taking furosemide for edema. I switched furosemide to hydrochlorothiazide and she can take it as needed for edema. Hydrochlorothiazide should decrease urinary calcium excretion Repeat 24 urine collection - Results pending Orders: Orders UA and rflx microscopic 4 Months Z87.442 - Personal history of urinary calculi Coding Level of Care Code Est Pt Level 4 (83380) Diagnoses Hypercalciuria R82.994 History of kidney stones Z87.442
--- OUTSIDE RECORDS SUMMARY | 2024-11-29 10:38 | XMS_ITS | Continuity of Care Document ---
Author Organization [facility] Address [address] [place] [address] Phone [phone] Social History Type Date Description Comments Sex Unknown Medications Active Medications SIG Qnty Indications Ordering Provider Date Metformin HCL [id number] Tablets ER 24HR Take 1 Tablet By Mouth Twice A Day 180tabs Devaughn Gandhi M.D. 06/18/2022 Medical Devices Description No Information Available Encounters Description No Information Available Assessments Description No Information Available Plan of Treatment No Information Available Functional Status Description No Information Available Mental Status Description No Information Available Referrals Description No Information Available
--- OUTSIDE RECORDS SUMMARY | 2024-11-29 10:38 | XMS_ITS | Data Portability ---
Author Organization [facility] [address] Address [address] [place] [address] Care Team Providers Care Ship Carpenter Name Role Phone MARIA C ACHARYA Primary Care Provider Assessment No assessment recorded. Plan of Treatment Reminders Order Date Submit Date Provider Last Modified By Organization Details Last Modified Time Details Appointments None recorded. Lab None recorded. Referral grants administrator referral 2022 023 [email or web address] Not available 3 08:08:10 Procedures None recorded. Surgeries None recorded. Imaging None recorded. Medication Orders None recorded. Patient TargetsNo targets recorded. 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 Medical Equipment None Reported. Allergies Allergen ID Allergen Name Allergen Category Reaction Reaction Severity Criticality Documentation Date Start Date Code Code System Note Provider Name and Address Organization Details Recorded Time 584696 Substance with sulfonami de structure and antibacte rial mechanism of action (substanc e) medicatio n Not available Not available Not available 05/04/2023 83528 8003 SNOMED OLGA Uribe - [facility] [...] Address Organization Details Last Updated DateTime 3 262179. 94 g 43.6 kg/m2 167.64 cm 4 [...] split virus, quadrivalent, preservative 7 completed Hallie Dec[place] null, PA - [facility] 05/04/2023 10:07:26 Influenza, MDCK, quadrivalent, PF 2 completed Hallie Dec[place] null, PA - [facility] 05/04/2023 10:07:26 COVID-19, mRNA, LNP-S, PF, 30 mcg/0.3 mL dose 1 completed Hallie Jenna null, PA - [facility] 05/04/2023 10:07:26 COVID-19, mRNA, LNP-S, PF, 30 mcg/0.3 mL dose 1 completed Hallie Dec[place] null, PA - [facility] 05/04/2023 10:07:26 COVID-19, mRNA, LNP-S, PF, 30 mcg/0.3 mL dose 1 completed Hallie [place] null, PA - [facility] 05/04/2023 10:07:26 COVID-19, mRNA, LNP-S, PF, 30 mcg/0.3 mL dose, arlen-sucrose 2 completed Hallie Dec[place] null, PA - [facility] 05/04/2023 10:07:26 COVID-19, mRNA, LNP-S, bivalent, PF, 30 mcg/0.3 mL dose 2 completed Hallie Dec[place] null, PA - [facility] 05/04/2023 10:07:26 pneumococcal polysaccharide PPV23 1 completed Hallie Dec[place] null, PA - [facility] 05/04/2023 10:07:26 Influenza, split virus, trivalent, preservative 0 completed Hallie [place] null, PA - [facility] 05/04/2023 10:07:26 Influenza, split virus, trivalent, preservative 4 completed Hallie Jenna null, PA - [facility] 05/04/2023 10:07:26 Influenza, split virus, quadrivalent, PF 8 completed Hallie Jenna null, PA - [facility] 05/04/2023 10:07:26 Influenza, split virus, quadrivalent, PF 0 completed Hallie Decatur null, PA - [facility] 05/04/2023 10:07:26 Influenza, split virus, quadrivalent, PF 1 completed Hallie Dec[place] null, PA - [facility] 05/04/2023 10:07:26 Past Encounters Encounter ID Performer Location Encounter Start Date Encounter Closed Date Diagnosis/Indication Diagnosis SNOMED-CT Code Diagnosis ICD10 Code Diagnosis Note [id number] [address] [address] 09/04/2018 08:28:53 09/04/2018 09:15:19 [id number] [address] [address] 11/08/2017 14:51:45 11/08/2017 15:52:09 [id number] [place] [address] [place] [address] 05/04/2023 09:47:30 05/04/2023 10:26:26 Pain of toe of right foot [id number] 09210 M79.674 partial toenail avulsionre commend epsom salt [...] 11/08/2017 1 [facility] Luciana Elizalde Denise [id number] Luciana Elizalde Denise 05/04/2023 1 [facility] [id number] Luciana Walker [id number] Luciana Walker Notes Date Note Type Note Provider Name and Address Organization Details Recorded Time 05/04/2023 text/html ToesReported bypatient.Notes:62 yo female c/o R toe painbanged toe under dressed and ripped toenail partially off+ bleedingminimal swelling+ pain - no pain with ambulation only when touching itno bruisingno redness Ron Huang, DO [address] [place], [address], PA - [facility] 05/04/2023 10:28:24 OBGyn Episode No OBEpisode recorded.
--- OUTSIDE RECORDS SUMMARY | 2024-11-29 10:38 | XMS_ITS | Patient Health Record ---
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 Problem [id number] Congenital metatarsus adductus, 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) Active confirmed Plan Of Treatment Pending Test Test Name Order Date Hepatic Function Panel (7) 05/14/2021 Insurance Providers Payer Name Payer Address Payer Phone Subscriber Number Group Number Insured Name Patient Relationship to Insured Coverage Start Date Coverage End Date [facility] [address] [place] [address] [phone] [id number] Luciana Walker Self - patient is the insured Medical (General) History Medical History History ICD Code GERD Osteoarthritits Depression Anxiety Obesity Obstructive sleep apnea on CPAP Vitamin D Deficiency HTN diabetes mellitus Surgical History Surgery Date(Month/Year) knee surgery
--- OUTSIDE RECORDS SUMMARY | 2024-11-29 10:39 | XMS_ITS | Patient Health Record ---
Author Organization [facility] Address [address] [place] [address] Care Team Providers Care Gear Milling Machine Set Up Operator Name Role Phone Katarzyna (RETIRED) Kvng TOLEDO Primary Care Provid er Unavailable Elpidio Meng, Kolby Unavailable Reason For Referral No Information Encounters Encounter Location Date Provider Diagnosis [facility] [address] [place] [address] 08/06/2024 Kolby Magallanes Jr Plan Of Treatment No Information Insurance Providers Payer Name Payer Address Payer Phone Subscriber Number Group Number Insured Name Patient Relationship to Insured Coverage Start Date Coverage End Date [facility] [address] [address] [place] [address] [id number] JUICE LYNCH Self - patient is the insured
== END 2024-11-29 10:09 | disposition home or self-care (01) ==
PROVIDERS: PCP Internal Medicine; Visit Provider Internal Medicine Hypertension Specialist
DX: R82.994 Hypercalciuria (principal); Z87.442 Personal history of urinary calculi
CPT/HCPCS: 99214

== ENCOUNTER → 2024-11-29 09:43 | Outpatient (BNVA) | payer OTHER, SELFPAY | PROVIDERS: PCP Internal Medicine; Visit Provider Internal Medicine Hypertension Specialist | DX: R82.994 Hypercalciuria (principal); Z87.442 Personal history of urinary calculi | CPT/HCPCS: 99212 ==

== ENCOUNTER 2025-01-25 14:06 | Outpatient (AMB) | payer OTHER, SELFPAY ==
--- NOTE | 2025-01-25 14:01 | MHC.PC.OV ---
Vital Signs 01/25/25 14:02 Height 5 ft 3.75 in Weight 259 lb BMI 44.8 BP 142/82 H Respiration 16 Pulse 89 Pulse Source Pulse Oximeter Temp 97.7 F Temp Source Temporal Artery Scan Pulse Oximetry (%) 95 Oxygen Delivery Method Room Air Intake Visit Reasons: 3 month follow up - see comments Isolation Washer Required: No Accompanied by: Self / Same As Patient Allergies Sulfa (Sulfonamide Antibiotics) Allergy (Unknown, Verified 01/25/25 14:03) HIVES Tobacco use date assessed: 01/25/25 Dental Screening Dental Screen Date: 01/25/25 Did you have a dental visit in the last 12 months?: Yes Did you have a dental problem in the last 6 months where you did not have access to dental care?: No Was dental information given to patient?: Patient has dentist [facility] Medical History Osteoarthritis of right knee Unilateral primary osteoarthritis, left knee Diabetes Obesity GERD (gastroesophageal reflux disease) HTN (hypertension) Obstructive sleep apnea Depression Surgical History History of colonoscopy (~01/03/14) H/O right knee surgery (~10/2023) H/O left knee surgery History of cholecystectomy Family History (Updated 01/25/25 @ 14:04 by TATIANA Pete) Father No problems noted. Mother No problems noted. 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 1. Little interest or pleasure in doing things: not at all 2. Feeling down, depressed, or hopeless: nearly every day 3. Trouble falling or staying asleep, or sleeping too much: nearly every day 4. Feeling tired or having little energy: nearly every day 5. Poor appetite or overeating: not at all 6. Feeling bad about yourself - or that you are a failure or have let yourself or your family down: not at all 7. Trouble concentrating on things, such as reading the newspaper or watching television: not at all 8. Moving or speaking so slowly that other people could have noticed. Or the opposite - being so fidgety or restless that you have been moving around a lot more than usual: not at all 9. Thoughts that you would be better off or of hurting yourself in some way: not at all Total score: 9 Source: Developed by Drs. Kvng Pisano, Vicki Mariee, Marciano Tiwari and colleagues, with an educational imani from [employer]. Thrive Questionnaire Date Thrive assessed: 01/25/25 I am a: Patient What is your living situation today?: I have a steady place to live Within the past 12 months, did the food you bought not last and you didn't have the money to get more?: Never true Within the past 12 months, did you worry whether your food would run out before you got money to buy more?: Never true Do you have trouble paying for medicines?: No Do you have trouble getting transportation to medical appointments?: No Do you have trouble paying your heating and electricity bill?: No Do you have trouble taking care of your child, family member or friend?: No Do you have trouble with day-to-day activities such as bathing, preparing meals, shopping, managing finances, etc.?: No Are you currently unemployed and looking for a job?: No Are you interested in more education?: No Please select the resources that you would like help with: None THRIVE Score: 0 AUDIT C Alcohol Use Questionnaire (AUDIT-C) 1. How often do you have a drink containing alcohol?: Monthly or less 2. How many drinks containing alcohol do you have on a typical day when you are drinking?: 1 or 2 3. How often do you have six or more drinks on one occasion?: Never Total Score: 1 GIANLUCA-7 AMB Questionnaire GIANLUCA-7 Date GIANLUCA - 7 assessed: 01/25/25 Feeling nervous, anxious, or on edge: 3 = Nearly every day Not being able to stop or control worryin = Nearly every day Worrying too much about different things: 3 = Nearly every day Trouble relaxin = Nearly every day Being so restless that it is hard to sit still: 0 = Not at all Becoming easily annoyed or irritable: 0 = Not at all Feeling afraid as if something awful might happen: 3 = Nearly every day Total GIANLUCA-7 score (0-4 normal; 5-9 mild; 10-14 moderate; 15-21 severe): 15 Source: Developed by Drs. Kvng Pisano, Vicki Mariee, Marciano Tiwari and colleagues, with an educational imani from [employer]. Physical exam (Primary Care) Vital Signs: Last Vital Signs Temp 97.7 F 01/25/25 14:02 Pulse 89 01/25/25 14:02 Resp 16 01/25/25 14:02 BP 142/82 H 01/25/25 14:02 Pulse Ox 95 01/25/25 14:02 Oxygen Delivery Method Room Air 01/25/25 14:02 BMI result Body Mass Index 44.8 Tobacco/Smoking Status: Tobacco use Status Tobacco use date assessed 01/25/25 01/25/25 14:24 Patient Tobacco Use Status Never used Tobacco 01/25/25 14:24 PHQ-9: PHQ-9 Score PHQ-9: Total score 9 01/25/25 14:58 Thrive Assessment: Date of Thrive Assessment Date Thrive assessed 01/25/25 01/25/25 14:24 Coding Level of Care Code New Pt Level 4 (35334) Complex EM visit Add On G2211 Diagnoses Diabetes E11.9 Assessment & Plan Assessment & Plan (1) Diabetes: Code(s): E11.9 - Type 2 diabetes mellitus without complications Category: Medical Plan: Continue meds at current dosage. Plan History of Present Illness The patient is a 64-year-old female presenting with anxiety, insomnia, and chronic knee pain. She is experiencing significant stress due to family issues, primarily concerning her elderly mother's care and a close aunt's terminal illness. This stress is contributing to insomnia. The patient indicates that alprazolam, taken on several occasions, has been effective in promoting sleep. Chronic knee pain persists, with treatment plans disrupted by changes in insurance. GERD was exacerbated recently but is controlled with lansoprazole. The patient is preparing for her daughter's upcoming wedding, which is also contributing to her anxiety. Social History - Family dynamics contributing to anxiety, including care concerns for mother with dementia and an aunt with late-stage pancreatic cancer. - Insurance changes impact on health management, related to recently approved disability benefits. - Current involvement in high-stress event planning, specifically her daughter's wedding. Review of Systems - Neurological: Reports insomnia. - Psychological: Reports anxiety. - Musculoskeletal: Reports chronic knee pain. - Gastrointestinal: Reports previous reflux, improved with lansoprazole. Physical Exam General: Cooperative and healthy appearing Nutritional Appearance: Well nourished Orientation/consciousness: Patient oriented x3 Limitations: No limitations Head: Normal to inspection General: Appearance normal, both eyes and all related structures Neck: Normal visual inspection Chest: Normal palpation of entire chest wall Respiratory: Normal respiratory effort Neurology: Patient oriented x3 Results Plan 1. Anxiety Disorder - Alprazolam prescribed cautiously. 2. Insomnia - Medication options discussed include Seroquel and Cetacol. 3. Chronic Knee Pain - Physical therapy reinitiated. 4. Gastroesophageal Reflux Disease Gerd - Continued management with lansoprazole. Discussion Notes I discussed with the patient the management strategies for anxiety, focusing on the cautious use of alprazolam due to its habit-forming potential. For insomnia, we reviewed medication options, including Seroquel for nightly use, and emphasized the risks of alprazolam for sleep. Chronic knee pain would benefit from reinitiating physical therapy, especially given the patient's recent insurance changes affecting her care continuity. GERD treatment with lansoprazole is to continue, with previously reported symptom control. We touched on the importance of monitoring familial stress factors and their contribution to her conditions. Patient Instructions - Take alprazolam as prescribed for anxiety. - Use Seroquel as directed to help with sleep. - Follow up with physical therapy to manage knee pain. - Continue lansoprazole for reflux. - Schedule a colonoscopy as discussed. - Seek support for family stressors and consider stress management strategies. Orders: Orders PT Evaluation and Treatment 01/25/25 M17.12 - Unilateral primary osteoarthritis, left knee Medications: New lansoprazole 15 mg PO DAILY 90 caps 0RF sertraline 100 mg PO DAILY 30 tabs 1RF alprazolam (Xanax) 0.5 mg PO BID 20 tabs 0RF Discontinued sertraline Discontinued Reason: Doctor's Order 50 mg PO DAILY 90 tabs 1RF sertraline Discontinued Reason: Doctor's Order 50 mg (1/2 x 100 mg) PO DAILY 30 tabs 1RF
[2025-01-25 14:02] VITALS: BP 142/82; PULSE 89; RESP 16; TEMP 36.5; O2SAT 95; BMI 44.8
--- OUTSIDE RECORDS SUMMARY | 2025-01-25 15:24 | XMS_ITS | Data Portability ---
Author Organization [facility] [address] Address [address] [place] [address] Care Team Providers Care Countersinker Name Role Phone MARIA C ACHARYA Primary Care Provider Assessment No assessment recorded. Plan of Treatment Reminders Order Date Submit Date Provider Last Modified By Organization Details Last Modified Time Details Appointments None recorded. Lab None recorded. Referral ship purser referral 2022 023 [email or web address] 1 Not available 3 08:08:10 Procedures None recorded. Surgeries None recorded. Imaging None recorded. Medication Orders None recorded. Patient TargetsNo targets recorded. 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 Medical Equipment None Reported. Allergies Allergen ID Allergen Name Allergen Category Reaction Reaction Severity Criticality Documentation Date Start Date Code Code System Note Provider Name and Address Organization Details Recorded Time 753482 Substance with sulfonami de structure and antibacte rial mechanism of action (substanc e) medicatio n Not available Not available Not available 05/04/2023 84391 8003 SNOMED OLGA Uribe - [facility] [...] Address Organization Details Last Updated DateTime 3 149980. 94 g 43.6 kg/m2 167.64 cm 4 [...] split virus, quadrivalent, preservative 7 completed Hallie Gresham null, PA - [facility] 05/04/2023 10:07:26 Influenza, MDCK, quadrivalent, PF 2 completed Hallie Jenna null, PA - [facility] 05/04/2023 10:07:26 COVID-19, mRNA, LNP-S, PF, 30 mcg/0.3 mL dose 1 completed Hallie Gresham null, PA - [facility] 05/04/2023 10:07:26 COVID-19, mRNA, LNP-S, PF, 30 mcg/0.3 mL dose 1 completed Hallie Gresham null, PA - [facility] 05/04/2023 10:07:26 COVID-19, mRNA, LNP-S, PF, 30 mcg/0.3 mL dose 1 completed Hallie Gresham null, PA - [facility] 05/04/2023 10:07:26 COVID-19, mRNA, LNP-S, PF, 30 mcg/0.3 mL dose, arlen-sucrose 2 completed Hallie Gresham null, PA - [facility] 05/04/2023 10:07:26 COVID-19, mRNA, LNP-S, bivalent, PF, 30 mcg/0.3 mL dose 2 completed Hallie Gresham null, PA - [facility] 05/04/2023 10:07:26 pneumococcal polysaccharide PPV23 1 completed Hallie Gresham null, PA - [facility] 05/04/2023 10:07:26 Influenza, split virus, trivalent, preservative 0 completed Hallie Jenna null, PA - [facility] 05/04/2023 10:07:26 Influenza, split virus, trivalent, preservative 4 completed Hallie Jenna null, PA - [facility] 05/04/2023 10:07:26 Influenza, split virus, quadrivalent, PF 8 completed Hallie Gresham null, PA - [facility] 05/04/2023 10:07:26 Influenza, split virus, quadrivalent, PF 0 completed Hallie Gresham null, PA - [facility] 05/04/2023 10:07:26 Influenza, split virus, quadrivalent, PF 1 completed Hallie Gresham null, PA - [facility] 05/04/2023 10:07:26 Past Encounters Encounter ID Performer Location Encounter Start Date Encounter Closed Date Diagnosis/Indication Diagnosis SNOMED-CT Code Diagnosis ICD10 Code Diagnosis Note [id number] [facility] [facility] [address] [place] [address] 09/04/2018 08:28:53 09/04/2018 09:15:19 [id number] [facility] [facility] [address] [place] [id number] 11/08/2017 14:51:45 11/08/2017 15:52:09 [id number] [place] [address] [place] [address] 05/04/2023 09:47:30 05/04/2023 10:26:26 Pain of toe of right foot [id number] 01008 M79.674 partial toenail avulsionre commend epsom salt [...] Member ID Guarantor Name 11/08/2017 1 [facility]) Luciana Walker [id number] Luciana Walker 05/04/2023 1 [facility] [id number] Luciana Fide Walker [id number] Luciana Walker Notes Date Note Type Note Provider Name and Address Organization Details Recorded Time 05/04/2023 text/html ToesReported bypatient.Notes:62 yo female c/o R toe painbanged toe under dressed and ripped toenail partially off+ bleedingminimal swelling+ pain - no pain with ambulation only when touching itno bruisingno redness Ron Huang, DO [address] [place], [address], [place] - [facility] 05/04/2023 10:28:24 OBGyn Episode No OBEpisode recorded.
--- OUTSIDE RECORDS SUMMARY | 2025-01-25 15:24 | XMS_ITS | Continuity of Care Document ---
Author Organization [facility] Address [address] [facility] [address] [facility] [address] [place] [address] Phone [phone] Social History Type Date Description Comments Sex Unknown Medications Active Medications SIG Qnty Indications Ordering Provider Date Metformin HCL [id number] Tablets ER 24HR Take 1 Tablet By Mouth Twice A Day 180tabs Devaughn Gandhi M.D. 06/18/2022 Medical Devices Description No Information Available Encounters Description No Information Available Assessments Description No Information Available Plan of Treatment No Information Available Functional Status Description No Information Available Mental Status Description No Information Available Referrals Description No Information Available
== END 2025-01-25 14:52 | disposition home or self-care (01) ==
LOC: HO.HMCSH 14:06
PROVIDERS: PCP Internal Medicine; Visit Provider Internal Medicine
DX: E11.9 Type 2 diabetes mellitus without complications (principal)

== ENCOUNTER → 2025-01-25 14:06 | Outpatient (BNVA) | payer OTHER, SELFPAY | PROVIDERS: PCP Internal Medicine; Visit Provider Internal Medicine | DX: E11.9 Type 2 diabetes mellitus without complications (principal); F41.9 Anxiety disorder, unspecified; G47.00 Insomnia, unspecified; M25.569 Pain in unspecified knee; G89.29 Other chronic pain; K21.9 Gastro-esophageal reflux disease without esophagitis; Z79.899 Other long term (current) drug therapy | CPT/HCPCS: 99212 ==

== ENCOUNTER 2025-02-28 08:48 | Outpatient (REF) | payer OTHER, SELFPAY | END 2025-02-28 08:49 | disposition home or self-care (01) | LOC: HO.MAMMO 08:48 | PROVIDERS: PCP Internal Medicine; Visit Provider Internal Medicine | DX: Z12.31 Encounter for screening mammogram for malignant neoplasm of breast (principal) | CPT/HCPCS: 77063; 77067 ==

== ENCOUNTER → 2025-02-28 09:00 | Outpatient (BNV) | payer OTHER, SELFPAY | PROVIDERS: PCP Internal Medicine; Visit Provider Internal Medicine | DX: Z12.31 Encounter for screening mammogram for malignant neoplasm of breast (principal) | CPT/HCPCS: 77063; 77067 ==

== ENCOUNTER 2025-04-15 09:44 | Outpatient (REF) | payer OTHER, SELFPAY ==
--- OUTSIDE RECORDS SUMMARY | 2025-04-15 09:59 | XMS_ITS | Encounter Summary ---
Author Organization [facility] Address [address] [place] [address] Phone Care Team Providers Care Renewable Energy Technician Name Role Phone Kvng Colón DO Primary Care Provider Encounter Details Date Type Department Care Team (Late st Contact Info) Description 12/18/2017 Procedure Pass [place] Admitting Dept - Virtual Department [address] [place] [address] Social History Tobacco Use Types Packs/Day Years Used Date Smoking Tobacco: Never Smokeless Tobacco: Never Alcohol Use Standard Drinks/Week Comments Yes 0 (1 standard drink = 0.6 oz pur e alcohol) rare Comments No Sex and Gender Information Value Date Recorded Sex Assigned at Female 10/19/2017 1:36 PM EST Legal Sex Female 9:44 PM EDT Gender Identity Female 10/19/2017 1:36 PM EST Sexual Orientation Straight 10/19/2017 1: 36 PM EST 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 It is not the complete legal health record.[facility]
--- OUTSIDE RECORDS SUMMARY | 2025-04-15 09:59 | XMS_ITS | Data Portability ---
Author Organization [facility] [address] Address [address] [place] [address] Care Team Providers Care Tube Filler Name Role Phone MARIA C ACHARYA Primary Care Provider [phone] Assessment No assessment recorded. Plan of Treatment Reminders Order Date Submit Date Provider Last Modified By Organization Details Last Modified Time Details Appointments None recorded. Lab None recorded. Referral propeller mechanic referral 2022 023 [email or web address] 1 Not available 3 08:08:10 Procedures None recorded. Surgeries None recorded. Imaging None recorded. Medication Orders None recorded. Patient TargetsNo targets recorded. Patient Instructions Encounter Date Encounter Id Patient Instructions Last Modified By Organization Details Last Modified Time 05/04/2023 [id number] toenail or fingernail avulsion: care instructions [email or web address] Not available 05/04/2023 10:23:43 Reason for Referral Cardiothoracic Anesthesia Technician Referral for Pain of toe of right foot Referring Physician: Ron Huang, Urgent Care, Encounter Date: 05/04/2023 Problems Name Problem SNOMED Code Status Onset Date Resolution Date Notes Provider Name and Address Organization Details Recorded Time Insomnia 126341427 Active 2022 Hallie [place] null, PA - [facility] 3 10:08:22 Diabetes mellitus 91803696 Active 2022 Hallie Jenna null, PA - [facility] 3 10:08:27 Dependence on continuous positive airway pressure ventilation 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 Medical Equipment None Reported. Allergies Allergen ID Allergen Name Allergen Category Reaction Reaction Severity Criticality Documentation Date Start Date Code Code System Note Provider Name and Address Organization Details Recorded Time 254687 Substance with sulfonami de structure and antibacte rial mechanism of action (substanc e) medicatio n Not available Not available Not available 05/04/2023 72467 8003 SNOMED OLGA Uribe - [facility] [...] blood by Pulse oximetry Heart rate Systolic And Diastolic Provider Name and Address Organization Details Last Updated DateTime 3 735331. 94 g 43.6 kg/m2 167.64 cm 4 20 /min 97.8 [degF] 97 % 97 % 80 /min 134/89 mm[Hg] Hallie West PA - [employer] [facility] 3 10:10:00 Social History Question Answer Notes LastModified by Organizat ion Details LastModified Time Tobacco Smoking Status Never Smoker Hallie cai PA - [facility] 05/04/2023 10:08:45 Have You Had Direct Contact, Or Contact During Intimacy, With Monkeypox Rash, Scabs, Or Body Fluids From A Person With Monkeypox? No Information not available 05/04/2023 Have You Recently Traveled Abroad? No Information not available 05/04/2023 Sex: Unknown Functional Status Question Answer Note LastModified by Organizat ion Details LastModified Time Do you use any illicit or recreational drugs? No Information not available 05/04/2023 Do you or have you ever used any other forms of tobacco or nicotine? No Information not available 05/04/2023 What is your level of alcohol consumption? None Information not available 05/04/2023 Mental Status None recorded. Family History Relationship [...] split virus, quadrivalent, preservative 6 completed Hallie [place] null, PA - [facility] 05/04/2023 10:07:26 Influenza, split virus, quadrivalent, preservative 7 completed Hallie [place] null, PA - [facility] 05/04/2023 10:07:26 [...] 30 mcg/0.3 mL dose 2 completed Hallie [place] null, PA - [facility] 05/04/2023 10:07:26 pneumococcal polysaccharide PPV23 1 completed Hallie [place] null, PA - [facility] 05/04/2023 10:07:26 Influenza, split virus, trivalent, preservative 0 completed Hallie Jenna null, PA - [facility] 05/04/2023 10:07:26 Influenza, split virus, trivalent, preservative 4 completed Hallie [place] null, PA - [facility] 05/04/2023 10:07:26 Influenza, split virus, quadrivalent, PF 8 completed Hallie Jenna null, PA - [facility] 05/04/2023 10:07:26 Influenza, split virus, quadrivalent, PF 0 completed Hallie [place] null, PA - [facility] 05/04/2023 10:07:26 Influenza, split virus, quadrivalent, PF 1 completed Hallie Jenna null, PA - [facility] 05/04/2023 10:07:26 Past Encounters Encounter ID Performer Location Encounter Start Date Encounter Closed Date Diagnosis/Indication Diagnosis SNOMED-CT Code Diagnosis ICD10 Code Diagnosis Note [id number] [facility] [address] [place] [phone] 09/04/2018 08:28:53 09/04/2018 09:15:19 [id number] [facility] [facility] [address] [place] [phone] 11/08/2017 14:51:45 11/08/2017 15:52:09 [id number] [place] [address] [facility] [address] [place] [address] 05/04/2023 09:47:30 05/04/2023 10:26:26 Pain of toe of right foot [id number] 85658 M79.674 partial toenail avulsionre commend epsom salt [...] Recorded Advance Directives Directive None Recorded Payers Insurance Date Sequence Insurance Name Policy Number Policy Carreon Covered Member ID Carreon Member ID Guarantor Name 05/04/[address] [place] [address] [id number] Luciana Walker [id number] Luciana Elizalde Denise 05/04/2023 1 [id number] (PPO) Luciana Elizalde Denise [id number] Luciana Elizalde Denise Notes Date Note Type Note Provider Name and Address Organization Details Recorded Time 05/04/2023 text/html ToesReported by [email or web address] yo female c/o R toe painbanged toe under dressed and ripped toenail partially off+ bleedingminimal swelling+ pain - no pain with ambulation only when touching itno bruisingno redness ROS as noted in the HPI Ron Huang, DO [address] [place], [address], [place] - [facility] 05/04/2023 10:28:24 OBGyn Episode No OBEpisode recorded.
--- OUTSIDE RECORDS SUMMARY | 2025-04-15 09:59 | XMS_ITS | Continuity of Care Document ---
Author Organization [facility] Address [address] [facility] [facility] [address] [place] [address] Phone [phone] Social History Type Date Description Comments Sex Female Sex Unknown Medications Active Medications SIG Qnty Indications Ordering Provider Date Metformin HCL [id number] Tablets ER 24HR Take 1 Tablet By Mouth Twice A Day 180tabs Devaughn Gandhi M.D. 06/18/2022 Medical Devices Description No Information Available Encounters Description No Information Available Assessments Description No Information Available Plan of Treatment No Information Available Functional Status Description No Information Available Mental Status Description No Information Available Referrals Description No Information Available
[2025-04-15 11:59] LABS: Appearance Urine Clear; Glucose Urine UA Negative (Negative); PH 5.5 (5.0-9.0); Specific Gravity - Urine 1.015 (1.005-1.025); UMIC TRIGGER UA YES
== END 2025-04-15 09:45 | disposition home or self-care (01) ==
LOC: HO.10HDLNP 09:44
PROVIDERS: Visit Provider Internal Medicine Hypertension Specialist
DX: Z87.442 Personal history of urinary calculi (principal)
CPT/HCPCS: 81001

== ENCOUNTER 2025-04-21 11:49 | Outpatient (AMB) | payer OTHER, SELFPAY ==
--- NOTE | 2025-04-21 11:52 | HO.NEPHOV ---
Vital Signs 04/21/25 11:53 Height 5 ft 3.75 in Weight 249 lb BMI 43.1 BP 117/76 Blood Pressure Location Lt brachial Position Sitting Pulse 80 Pulse Source Pulse Oximeter Pulse Oximetry (%) 95 Oxygen Delivery Method Room Air Intake Visit Reasons: 4 MO FU-Conf Intake Note: Patient here for a follow-up, patient is requesting a prescription of prednisone low dose. Also will like a refill on her oxycodone 5mg and flomax 0.4 mg. Hematologist Oncologist Required: No Accompanied by: Self / Same As Patient Allergies Sulfa (Sulfonamide Antibiotics) Allergy (Unknown, Verified 04/21/25 11:56) HIVES Medication List - Last Reconciled 04/21/25 by Josef Ontiveros MD acetaminophen 650 mg PO Q4H PRN albuterol sulfate 90 mcg/actuation inhalation alprazolam (Xanax) 0.5 mg PO BID atorvastatin 10 mg PO DAILY cetirizine (Zyrtec) 10 mg PO DAILY PRN cholecalciferol (vitamin D3) 50 mcg PO DAILY dulaglutide (Trulicity) 0.75 mg (0.5 mL) subcut QWEEK 90 days gabapentin 300 mg PO TID hydrochlorothiazide 25 mg PO DAILY PRN lansoprazole 15 mg PO DAILY lifitegrast 5% (Xiidra) 1 drp ophthalmic (eye) BID meloxicam 15 mg PO DAILY metformin ER 1,500 mg (2 x 750 mg) PO DAILY 90 days oxycodone 5 mg PO DAILY PRN quetiapine (Seroquel) 50 mg PO BEDTIME sertraline 50 mg PO DAILY tamsulosin (Flomax) 0.4 mg PO DAILY Do you need a note to return to daycare/school/sports/work: No HPI Comments Details: Luciana is a pleasant 63-year-old woman with a history of significant arthritis and recently underwent knee replacement. She developed flank pain and was found to have right hydronephrosis. She had a obstructing calculi which she passed. She was seen by Urology and underwent workup. January of 2024 urine study showed excessive sodium, uric acid, calcium. Total volume was 2 L He has been referred for evaluation of hypercalciuria. She has started a weight loss diet. She has been eating high amounts of protein including animal proteins. She is on Ozempic. So far she was lost about 70 lb. At present she has no urinary symptoms like dysuria urgency increased frequency or hematuria. No flank pain. No nausea or vomiting. No abdominal pain. No shortness of breath no fever no rash. 04/21/25 c/o Knee pain. Off Ozempic ON Trulicity Previously lost 70 lbs with ozempic Kidney stone in December - it Has stopped diet pepsi since. [facility] Medical History Osteoarthritis of right knee Unilateral primary osteoarthritis, left knee Diabetes Obesity GERD (gastroesophageal reflux disease) HTN (hypertension) Obstructive sleep apnea Depression Surgical History History of colonoscopy (~01/03/14) H/O right knee surgery (~10/2023) H/O left knee surgery History of cholecystectomy Family History Father No problems noted. Mother No problems noted. 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 Lungs entry equal no rales. Heart S1-S2 heard no gallop or rub. Abdomen soft nontender. Neuro alert awake oriented. No asterixis. Extremities no edema. Results Reviewed Nephrology Results: Hgb, (12.0-16.0) 13.2 g/dl 11/25/24 WBC, (4.8-10.8) 5.5 X10*3/uL 11/25/24 Plt Count, (160-400) 290 X10*3/uL 11/25/24 Sodium, (135-145) 144 mmol/L 11/25/24 Potassium, (3.3-5.1) 3.8 mmol/L 11/25/24 Chloride, (96-108) 109 mmol/L H 11/25/24 Carbon Dioxide, (22-29) 25 mmol/L 11/25/24 BUN, (9-16) 16 mg/dL 11/25/24 Creatinine, (0.5-1.4) 0.82 mg/dL 11/25/24 Calcium, (8.4-10.2) 9.5 mg/dL Δ 11/25/24 Phosphorus, (2.7-4.5) 2.9 mg/dL 11/25/24 PTH Intact, (8.7-77.1) 60.7 pg/mL 11/25/24 Urine Protein, (Neg-Trace) Negative mg/dL 04/15/25 Renal US 10/07/24 Assessment & Plan Assessment & Plan (1) Hypercalciuria: Code(s): R82.994 - Hypercalciuria Category: Medical (2) History of kidney stones: Code(s): Z87.442 - Personal history of urinary calculi Category: Medical Plan 63-year-old woman with arthritis obesity and history of nephrolithiasis has hypercalciuria. Upon reviewing the 24 urine collection he she clearly has hypercalciuria along with increased urinary sodium, uric acid and phosphorus excretion. Urine pH was also low at 5.3. All of these findings are probably related to the excessive animal protein intake. The goal is to minimize future stone formation. I have encouraged her to stay on low-sodium diet. She should cut back on animal protein intake and she can certainly increase plan proteins. Plant proteins are usually alkaline. Maintain urine output of at least 2 L by consuming more than 2.5 L of fluids. The oxalate excretion was 33. She should continue to stay on a low oxalate diet. Increase fluids with citrate intake like lemonade. She has been on furosemide p.r.n.. Furosemide can increase urinary calcium excretion. She has been taking furosemide for edema. I switched furosemide to hydrochlorothiazide and she can take it as needed for edema. Hydrochlorothiazide should decrease urinary calcium excretion 04/21/2025. Overall she is doing well from a renal standpoint. Encouraged to stay on low-sodium diet Increase p.o. fluid intake and lemonade. Avoid cola drinks. At her request gave her a prescription for oxycodone 5 mg 5 tablets p.r.n.. Prednisone 10 mg p.o. once a day for 3 days during renal colic. Medications: New prednisone 10 mg PO DAILY 7 tabs 0RF Refilled tamsulosin (Flomax) 0.4 mg PO DAILY 30 caps 1RF oxycodone Partial Fill upon patient request. 5 mg PO DAILY PRN 5 tabs 0RF pain Coding Level of Care Code Est Pt Level 4 (62987) Diagnoses Hypercalciuria R82.994 History of kidney stones Z87.442
[2025-04-21 11:53] VITALS: BP 117/76; PULSE 80; O2SAT 95; BMI 43.1
--- OUTSIDE RECORDS SUMMARY | 2025-04-21 12:27 | XMS_ITS | Encounter Summary ---
Author Organization [facility] Address [address] [place] [address] Phone Care Team Providers Care Redeye Gunner Name Role Phone Kvng Colón DO Primary Care Provider Encounter Details Date Type Department Care Team (Late st Contact Info) Description 12/18/2017 Procedure Pass OR Admitting Dept - Virtual Department [address] [place] [address] Social History Tobacco Use Types Packs/Day Years [...] on filedocumented in this encounter Care Teams Redeye Gunner Relationship Specialty Start Date End Date Kvng Colón DO [address] [place] [address] PCP - General Internal Medicine 08/29/17 documented as of this encounter Additional Source Comments The information contained in this document represents components of the legal health record. It is not the complete legal health record.[facility]
--- OUTSIDE RECORDS SUMMARY | 2025-04-21 12:28 | XMS_ITS | Patient Health Record ---
Author Organization [facility] Address [address] [place] [address] Care Team Providers Care Loan Representative Name Role Phone Katarzyna Calderon Primary Care [...] MG 1 tablet Orally O nce a day; Duration: 90 days 05/14/2021 Active Omeprazole 20 MG 1 capsule 30 minutes before morning meal Orally Once a day Active ProAir HFA 108 (90 Base) MCG/ACT 1 puff as needed Inhalation every 4 hrs Active Zolpidem Tartrate 5 MG 1 tablet at bedti me Orally Once a day Active Problems Problem Type SNOMED Code ICD Code Onset Dates Problem Status W/U Status Risk Notes Problem Congenital metatarsus adductus, 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 Problem Congenital metatarsus adductus, 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) Active confirmed Plan Of Treatment Pending Test Test Name Order Date Hepatic Function Panel (7) 05/14/2021 Insurance Providers Payer Name Payer Address Payer Phone Subscriber Number Group Number Insured Name Patient Relationship to Insured Coverage Start Date Coverage End Date [facility] [address] [facility] [id number] Luciana Walker Self - patient is the insured Medical (General) History Medical History History ICD Code GERD Osteoarthritits Depression Anxiety Obesity Obstructive sleep apnea on CPAP Vitamin D Deficiency HTN diabetes mellitus Surgical History Surgery Date(Month/Year) knee surgery
--- OUTSIDE RECORDS SUMMARY | 2025-04-21 12:28 | XMS_ITS | Continuity of Care Document ---
Author Organization [facility] Address [address] [facility] [address] [place] [address] Phone [phone] Social History Type Date Description Comments Sex Female Sex Unknown Medications Active Medications SIG Qnty Indications Ordering Provider Date Metformin HCL [id number] Tablets ER 24HR Take 1 Tablet By Mouth Twice A Day 180tabs Devaughn Gandhi M.D. 06/18/2022 Medical Devices Description No Information Available Encounters Description No Information Available Assessments Description No Information Available Plan of Treatment No Information Available Functional Status Description No Information Available Mental Status Description No Information Available Referrals Description No Information Available
== END 2025-04-21 12:12 | disposition home or self-care (01) ==
LOC: HO.HKA 11:50
PROVIDERS: PCP Internal Medicine; Visit Provider Internal Medicine Hypertension Specialist
DX: R82.994 Hypercalciuria (principal); Z87.442 Personal history of urinary calculi
CPT/HCPCS: 99214

== ENCOUNTER → 2025-04-21 11:49 | Outpatient (BNVA) | payer OTHER, SELFPAY | PROVIDERS: PCP Internal Medicine; Visit Provider Internal Medicine Hypertension Specialist | DX: R82.994 Hypercalciuria (principal); Z87.442 Personal history of urinary calculi | CPT/HCPCS: 99212 ==

== ENCOUNTER 2025-04-26 13:20 | Outpatient (AMB) | payer OTHER, SELFPAY ==
--- NOTE | 2025-04-26 13:25 | MHC.PC.OV ---
Vital Signs 04/26/25 13:31 Height 5 ft 3.75 in Weight 248 lb BMI 42.9 BP 116/70 Pulse 88 Pulse Source Pulse Oximeter Temp 97.8 F Temp Source Temporal Artery Scan Pulse Oximetry (%) 97 Oxygen Delivery Method Room Air Intake Visit Reasons: 3 month f/u - see comments Time Piece Repairer Required: No Accompanied by: Self / Same As Patient Allergies Sulfa (Sulfonamide Antibiotics) Allergy (Unknown, Verified 04/26/25 13:34) HIVES Tobacco use date assessed: 01/25/25 Dental Screening Dental Screen Date: 01/25/25 ON LICENSE OF [facility] Medical History Osteoarthritis of right knee Unilateral primary osteoarthritis, left knee Diabetes Obesity GERD (gastroesophageal reflux disease) HTN (hypertension) Obstructive sleep apnea Depression Surgical History History of colonoscopy (~01/03/14) H/O right knee surgery (~10/2023) H/O left knee surgery History of cholecystectomy Family History Father No problems noted. Mother No problems noted. 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 1. Little interest or pleasure in doing things: not at all 2. Feeling down, depressed, or hopeless: nearly every day 3. Trouble falling or staying asleep, or sleeping too much: nearly every day 4. Feeling tired or having little energy: nearly every day 5. Poor appetite or overeating: not at all 6. Feeling bad about yourself - or that you are a failure or have let yourself or your family down: not at all 7. Trouble concentrating on things, such as reading the newspaper or watching television: not at all 8. Moving or speaking so slowly that other people could have noticed. Or the opposite - being so fidgety or restless that you have been moving around a lot more than usual: not at all 9. Thoughts that you would be better off or of hurting yourself in some way: not at all Total score: 9 Source: Developed by Drs. Kvng Pisano, Vicki Mariee, Marciano Tiwari and colleagues, with an educational imani from [employer]. Thrive Questionnaire Date Thrive assessed: 01/25/25 I am a: Patient What is your living situation today?: I have a steady place to live Within the past 12 months, did the food you bought not last and you didn't have the money to get more?: Never true Within the past 12 months, did you worry whether your food would run out before you got money to buy more?: Never true Do you have trouble paying for medicines?: No Do you have trouble getting transportation to medical appointments?: No Do you have trouble paying your heating and electricity bill?: No Do you have trouble taking care of your child, family member or friend?: No Do you have trouble with day-to-day activities such as bathing, preparing meals, shopping, managing finances, etc.?: No Are you currently unemployed and looking for a job?: No Are you interested in more education?: No Please select the resources that you would like help with: None THRIVE Score: 0 AUDIT C Alcohol Use Questionnaire (AUDIT-C) 1. How often do you have a drink containing alcohol?: Monthly or less 2. How many drinks containing alcohol do you have on a typical day when you are drinking?: 1 or 2 3. How often do you have six or more drinks on one occasion?: Never Total Score: 1 GIANLUCA-7 AMB Questionnaire GIANLUCA-7 Date GIANLUCA - 7 assessed: 01/25/25 Feeling nervous, anxious, or on edge: 3 = Nearly every day Not being able to stop or control worryin = Nearly every day Worrying too much about different things: 3 = Nearly every day Trouble relaxin = Nearly every day Being so restless that it is hard to sit still: 0 = Not at all Becoming easily annoyed or irritable: 0 = Not at all Feeling afraid as if something awful might happen: 3 = Nearly every day Total GIANLUCA-7 score (0-4 normal; 5-9 mild; 10-14 moderate; 15-21 severe): 15 Source: Developed by Drs. Kvng Pisnao, Vicki Mariee, Marciano Tiwari and colleagues, with an educational imani from [employer]. Physical exam (Primary Care) Vital Signs: Last Vital Signs Temp 97.8 F 04/26/25 13:31 Pulse 88 04/26/25 13:31 BP 116/70 04/26/25 13:31 Pulse Ox 97 04/26/25 13:31 Oxygen Delivery Method Room Air 04/26/25 13:31 BMI result Body Mass Index 42.9 Tobacco/Smoking Status: Tobacco use Status Tobacco use date assessed 01/25/25 04/26/25 13:25 Patient Tobacco Use Status Never used Tobacco 04/26/25 13:25 PHQ-9: PHQ-9 Score PHQ-9: Total score 9 04/26/25 13:43 Thrive Assessment: Date of Thrive Assessment Date Thrive assessed 01/25/25 04/26/25 13:25 Coding Level of Care Code Est Pt Level 4 (11342) Complex EM visit Add On G2211 Diagnoses Abdominal pain R10.9 Assessment & Plan Assessment & Plan (1) Abdominal pain: Code(s): R10.9 - Unspecified abdominal pain Plan: History of Present Illness - The patient is a 64-year-old female presenting with medication management and side effects. - Hypertension: Reports a blood pressure reading of 110/70 mmHg. - Constipation: Experiences constipation with Trulicity, unusual for her typical bowel habits. - Anxiety: Significant anxiety noted, especially regarding dental appointments and insurance changes. - GERD: History of severe heartburn, improved with lansoprazole. - Preventative care: Colonoscopy and upper endoscopy scheduled due to Camarena's esophagus concerns. Social History - Family: The patient is involved in caring for her mother who has dementia and is also supporting her aunt with pancreatic cancer. Review of Systems - Cardiovascular: Reports hypertension with a blood pressure of 160/70 mmHg. - Gastrointestinal: Reports constipation associated with Trulicity use. - Psychiatric: Reports significant anxiety, especially related to dental visits and insurance changes. - Gastrointestinal: Reports severe heartburn, improved with lansoprazole. Physical Exam General: Cooperative and healthy appearing Nutritional Appearance: Well nourished Orientation/consciousness: Patient oriented x3 Limitations: No limitations Head: Normal to inspection General: Appearance normal, both eyes and all related structures Neck: Normal visual inspection Chest: Normal palpation of entire chest wall Respiratory: N ormal respiratory effort Neurology: Patient oriented x3, reports anxiety and sleep improvement with Seroquel and gabapentin. Results Plan 1. Hypertension - Monitor blood pressure regularly and adjust medications as needed. 2. Constipation - Consider using Colace or milk of magnesia to alleviate symptoms. 3. Anxiety - Address anxiety related to dental visits and insurance changes. 4. Gastroesophageal Reflux Disease (Gerd) - Continue lansoprazole for symptom management. 5. Preventative Care: Colonoscopy - Colonoscopy and upper endoscopy scheduled for June 06 to assess for Camarena's esophagus. Discussion Notes During the visit, we discussed the patient's current medication regimen and the side effects she is experiencing, particularly with Trulicity. We addressed her concerns about constipation and recommended trying Colace or milk of magnesia. We also talked about her anxiety related to dental visits and insurance changes, and the importance of continuing lansoprazole for GERD management. Patient Instructions - Monitor your blood pressure regularly and report any significant changes. - Use Colace or milk of magnesia as needed for constipation relief. - Continue taking lansoprazole as prescribed for GERD. - Attend your scheduled colonoscopy and upper endoscopy on June 06.
[2025-04-26 13:31] VITALS: BP 116/70; PULSE 88; TEMP 36.6; O2SAT 97; BMI 42.9
--- OUTSIDE RECORDS SUMMARY | 2025-04-26 13:59 | XMS_ITS | Encounter Summary ---
Author Organization [facility] Address [address] [place] [phone] Phone Care Team Providers Care Public Health Specialist Name Role Phone Kvng Colón DO Primary Care Provider Encounter Details Date Type Department Care Team (Late st Contact Info) Description 12/18/2017 Procedure Pass OR Admitting Dept - Virtual Department [address] [place] [address] Social History Tobacco Use Types Packs/Day Years [...] on filedocumented in this encounter Care Teams Public Health Specialist Relationship Specialty Start Date End Date Kvng Colón DO [address] [place] [id number] PCP - General Internal Medicine 08/29/17 documented as of this encounter Additional Source Comments The information contained in this document represents components of the legal health record. It is not the complete legal health record.[facility]
--- OUTSIDE RECORDS SUMMARY | 2025-04-26 13:59 | XMS_ITS | Continuity of Care Document ---
Author Organization [facility] Address [address] [place] [address] Phone [phone] Social History Type Date Description Comments Sex Female Sex Unknown Medications Active Medications SIG Qnty Indications Ordering Provider Date Metformin HCL [id number] Tablets ER 24HR Take 1 Tablet By Mouth Twice A Day 180tabs Devaughn Gandhi M.D. 06/18/2022 Medical Devices Description No Information Available Encounters Description No Information Available Assessments Description No Information Available Plan of Treatment No Information Available Functional Status Description No Information Available Mental Status Description No Information Available Referrals Description No Information Available
== END 2025-04-26 13:52 | disposition home or self-care (01) ==
LOC: HO.HMCSH 13:20
PROVIDERS: PCP Internal Medicine; Visit Provider Internal Medicine
DX: R10.9 Unspecified abdominal pain (principal)

== ENCOUNTER → 2025-04-26 13:20 | Outpatient (BNVA) | payer OTHER, SELFPAY | PROVIDERS: PCP Internal Medicine; Visit Provider Internal Medicine | DX: I10 Essential (primary) hypertension (principal); R10.9 Unspecified abdominal pain; K59.00 Constipation, unspecified; F41.9 Anxiety disorder, unspecified; K21.9 Gastro-esophageal reflux disease without esophagitis | CPT/HCPCS: 99212 ==

== ENCOUNTER 2025-07-04 09:26 | Outpatient (AMB) | payer OTHER, SELFPAY ==
[2025-07-04 09:28] VITALS: BP 158/92; PULSE 82; RESP 16; TEMP 36.4; O2SAT 95; BMI 44.5
--- NOTE | 2025-07-04 09:28 | MHC.PC.OV ---
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 Required: No Accompanied by: Self / Same As Patient Allergies Sulfa (Sulfonamide Antibiotics) Allergy (Unknown, Verified 07/04/25 09:29) HIVES Tobacco use date assessed: 07/04/25 Dental Screening Dental Screen Date: 01/25/25 [facility] Medical History Osteoarthritis of right knee Unilateral primary osteoarthritis, left knee Diabetes Obesity GERD (gastroesophageal reflux disease) HTN (hypertension) Obstructive sleep apnea Depression Surgical History History of colonoscopy (06/06/25) H/O right knee surgery (~10/2023) H/O left knee surgery History of cholecystectomy Family History Father No problems noted. Mother No problems noted. 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 1. Little interest or pleasure in doing things: not at all 2. Feeling down, depressed, or hopeless: nearly every day 3. Trouble falling or staying asleep, or sleeping too much: nearly every day 4. Feeling tired or having little energy: nearly every day 5. Poor appetite or overeating: not at all 6. Feeling bad about yourself - or that you are a failure or have let yourself or your family down: not at all 7. Trouble concentrating on things, such as reading the newspaper or watching television: not at all 8. Moving or speaking so slowly that other people could have noticed. Or the opposite - being so fidgety or restless that you have been moving around a lot more than usual: not at all 9. Thoughts that you would be better off or of hurting yourself in some way: not at all Total score: 9 Source: Developed by Drs. Kvng Pisano, Vicki Mariee, Marciano Tiwari and colleagues, with an educational imani from [employer]. Thrive Questionnaire Date Thrive assessed: 04/26/25 I am a: Patient What is your living situation today?: I have a steady place to live Within the past 12 months, did the food you bought not last and you didn't have the money to get more?: Never true Within the past 12 months, did you worry whether your food would run out before you got money to buy more?: Never true Do you have trouble paying for medicines?: No Do you have trouble getting transportation to medical appointments?: No Do you have trouble paying your heating and electricity bill?: No Do you have trouble taking care of your child, family member or friend?: No Do you have trouble with day-to-day activities such as bathing, preparing meals, shopping, managing finances, etc.?: No Are you currently unemployed and looking for a job?: No Are you interested in more education?: No Please select the resources that you would like help with: None THRIVE Score: 0 AUDIT C Alcohol Use Questionnaire (AUDIT-C) 1. How often do you have a drink containing alcohol?: Monthly or less 2. How many drinks containing alcohol do you have on a typical day when you are drinking?: 1 or 2 3. How often do you have six or more drinks on one occasion?: Never Total Score: 1 GIANLUCA-7 AMB Questionnaire GIANLUCA-7 Date GIANLUCA - 7 assessed: 04/26/25 Feeling nervous, anxious, or on edge: 3 = Nearly every day Not being able to stop or control worryin = Nearly every day Worrying too much about different things: 3 = Nearly every day Trouble relaxin = Nearly every day Being so restless that it is hard to sit still: 0 = Not at all Becoming easily annoyed or irritable: 0 = Not at all Feeling afraid as if something awful might happen: 3 = Nearly every day Total GIANLUCA-7 score (0-4 normal; 5-9 mild; 10-14 moderate; 15-21 severe): 15 Source: Developed by Drs. Kvng Pisano, Vicki Mariee, Marciano Tiwari and colleagues, with an educational imani from [employer]. Physical exam (Primary Care) Vital Signs: Last Vital Signs Temp 97.6 F 07/04/25 09:28 Pulse 82 07/04/25 09:28 Resp 16 07/04/25 09:28 BP 158/92 H 07/04/25 09:28 Pulse Ox 95 07/04/25 09:28 Oxygen Delivery Method Room Air 07/04/25 09:28 BMI result Body Mass Index 44.5 Tobacco/Smoking Status: Tobacco use Status Tobacco use date assessed 07/04/25 07/04/25 09:30 Patient Tobacco Use Status Never used Tobacco 07/04/25 09:30 PHQ-9: PHQ-9 Score PHQ-9: Total score 9 07/04/25 11:20 Thrive Assessment: Date of Thrive Assessment Date Thrive assessed 04/26/25 07/04/25 09:30 Coding Level of Care Code Est Pt Level 4 (95099) Complex EM visit Add On G2211 Diagnoses Unilateral primary osteoarthritis, left knee M17.12 Assessment & Plan Assessment & Plan (1) Unilateral primary osteoarthritis, left knee: Code(s): M17.12 - Unilateral primary osteoarthritis, left knee Category: Medical Plan: History of Present Illness - The patient is a 64-year-old female presenting with management of Type 2 Diabetes Mellitus. - The patient has been using Trulicity for diabetes management but reports dissatisfaction with its efficacy and side effects. - Previously, the patient was on Ozempic, which was effective, but insurance changes led to a switch to Trulicity. - The patient has not experienced significant weight loss since April, despite medication adherence. - The patient has a history of obstructive sleep apnea, diagnosed years ago, and uses a CPAP machine with a setting of 13. - The patient has osteoarthritis in the left knee and has been receiving physical therapy, which she finds beneficial. Social History Review of Systems - Endocrine: Reports dissatisfaction with current diabetes medication, Trulicity. - Musculoskeletal: Reports osteoarthritis in the left knee. - Respiratory: Reports use of CPAP machine for obstructive sleep apnea. Physical Exam General: Cooperative and healthy appearing Nutritional Appearance: Well nourished Orientation/consciousness: Patient oriented x3 Limitations: No limitations Head: Normal to inspection General: Appearance normal, both eyes and all related structures Neck: Normal visual inspection Chest: Normal palpation of entire chest wall Respiratory: N ormal respiratory effort Neurology: Patient oriented x3, has moderate sleep apnea, uses a CPAP machine with a setting of 13 Results Plan - A prescription for Ozempic was sent to the pharmacy, and the patient was advised to contact the insurance company to advocate for coverage. - The patient will continue using Trulicity until the Ozempic prescription is approved. - A referral for additional physical therapy for the left knee was provided. Discussion Notes I discussed with the patient the challenges with insurance coverage for Ozempic and the need to continue Trulicity in the interim. We also talked about the possibility of obtaining Ozempic through a wellness clinic, although it would be costly. I advised the patient to contact the insurance company to advocate for Ozempic coverage, emphasizing the previous success with the medication. Additionally, I provided a referral for further physical therapy for the left knee. Patient Instructions - Continue taking Trulicity as prescribed until Ozempic is approved. - Contact your insurance company to advocate for Ozempic coverage. - Attend physical therapy sessions for your left knee as scheduled. Orders: Orders PT Evaluation and Treatment 07/04/25 M17.12 - Unilateral primary osteoarthritis, left knee Medications: New semaglutide (Ozempic) for 4 weeks 0.25 mg (0.368 mL) subcut QWEEK 3 mL 0RF Refilled dulaglutide (Trulicity) 0.75 mg (0.5 mL) subcut QWEEK 6.5 mL 1RF 90 days
--- OUTSIDE RECORDS SUMMARY | 2025-07-04 09:29 | XMS_ITS | Continuity of Care Document ---
Author Organization [facility] Address [address] [place] [address] Phone [phone] Social History Type Date Description Comments Sex Female Sex Unknown Medications Active Medications SIG Qnty Indications Ordering Provider Date Metformin HCL [id number] Tablets ER 24HR Take 1 Tablet By Mouth Twice A Day 180tabs Devaughn Gandhi M.D. 06/18/2022 Medical Devices Description No Information Available Encounters Description No Information Available Assessments Description No Information Available Plan of Treatment No Information Available Functional Status Description No Information Available Mental Status Description No Information Available Referrals Description No Information Available
--- OUTSIDE RECORDS SUMMARY | 2025-07-04 09:29 | XMS_ITS | Encounter Summary ---
Author Organization [facility] Address [address] [place] [phone] Phone Care Team Providers Care Magazine Editor Name Role Phone Kvng Colón DO Primary Care Provider Encounter Details Date Type Department Care Team (Late st Contact Info) Description 12/18/2017 Procedure Pass [place] Admitting Dept - Virtual Department [address] [place] [address] Social History Tobacco Use Types Packs/Day Years [...] on filedocumented in this encounter Care Teams Magazine Editor Relationship Specialty Start Date End Date Kvng Colón DO [address] [place] [phone] PCP - General Internal Medicine 08/29/17 documented as of this encounter Additional Source Comments The information contained in this document represents components of the legal health record. It is not the complete legal health record.[facility]
--- OUTSIDE RECORDS SUMMARY | 2025-07-04 09:29 | XMS_ITS | Clinical Summary ---
Author Organization [facility] Address [address] [place] [address] Phone Care Team Providers Care Costume Technician Name Role Phone Maria C Colón Primary Care Provider Allergies Active Allergy Reactions Criticality Noted Date Comments Sulfa (Sulfonamide Antibiotics) 09/23 Medications FLUoxetine (PROZAC) 40 MG capsule one tab Active furosemide (LASIX) 40 MG tablet one tab Active omeprazole (PRILOSEC) 20 MG capsule 1 capsule 05/13/2012 Active propranolol (INDERAL) 20 MG immediate release tablet one tab Activ e diclofenac sodium (VOLTAREN) 75 MG EC tablet Take 75 mg by mouth 2 (two) times a day. Active acetaminophen (TYLENOL) 325 mg tablet Take 2 tablets (650 mg total) by mouth every 4 (four) hours as needed for mild pain. 0 12/18/2017 Active ibuprofen (ADVIL,MOTRIN) 200 MG tablet Take 3 tablets (600 mg total) by mouth every 6 (six) hours as needed for pain (specific location in comments). 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 Per chart review, no notation of which side was sampled during EMB. Plan hysteroscopy/D&C for separate sampling of both sides and polypectomy. Case request entered. Assessment & Plan (10/14/2017 9:53 PM EST): We reviewed the differential diagnosis of postmenopausal bleeding including atrophy (most common, benign), structural abnormalities (polyps, fibroids), and hyperplasia/malignancy. Juice does not have recent pelvic imaging therefore I would recommend an SHG to complete the evaluation. Discussed recommendation for hysteroscopy if structural abnormality is noted. Consider medical management if normal endometrium with persistent bleeding. Anxiety disorder 10/14/2017 Gastroesophageal reflux disease 10/14/2017 Hypertension 10/14/2017 Insomnia 10/14/2017 Obesity 10/14/2017 Family History Medical History Relation Comments Aortic valve stenosis Father COPD Father Emphysema Father Macular degeneration Father Pancreatic cancer Maternal Grandmother Cardiovascular disease Paternal Grandfather Diabetes Paternal Grandfather Relation Status Comments Brother Alive Father Maternal Grandfather Maternal Grandmother Mother Alive Paternal Grandfather Paternal Grandmother Sister 1 Alive Sister 2 Alive Sister 3 Alive Social History Tobacco Use Types Packs/Day Years Used Date Smoking Tobacco: Never Smokeless Tobacco: Never Alcohol Use Standard Drinks/Week Comments Yes 0 (1 standard drink = 0.6 oz pur e alcohol) rare Education Answer Date Recorded Are you interested in more education? Not on brianne e 01/17/2023 Are you concerned about learning? Not on file 01/17/2023 No 01/17/2023 No 01/17/2023 Digital Access Answer Date Recorded No 02/15/2023 No 02/15/2023 Reliable internet access at home? Not on file 02/15/2023 Device with a working camera? 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 Not on file Not on file Last Filed Vital Signs Vital Sign Reading Time Taken Comments Blood Pressure 131/72 12/18/2017 10:57 AM EDT Pulse 77 12/18/2017 10:57 AM EDT Temperature 37 C (98.6 F) 12/18/2017 10:57 AM EDT Respiratory Rate 16 12/18/2017 11:10 AM EDT Oxygen Saturation 95% 12/18/2017 10:57 AM EDT Inhaled Oxygen Concentration - - Weight 127 kg (280 lb) 12/03/2017 1:40 PM EDT Height 165.1 cm (5' 5 ) 12/03/2017 1:40 PM EDT Body Mass Index 46.59 12/03/2017 1:40 PM EDT Plan of Treatment Health Maintenance Due Date Last Done Comments Adult Td,Tdap Booster 1960 BLOOD PRESSURE 1960 LIPID PANEL 1962 DEPRESSION SCREENING 1974 HEPATITIS C SCREENING 1980 HIV ONE-TIME SCREENING (18-65 YEARS) 1980 MAMMOGRAM 2002 COLOGUARD 12/31/2007 COLONOSCOPY 12/31/2007 COLORECTAL CANCER SCREENING 12/31/2007 FIT TEST 12/31/2007 FOBT 12/31/2007 SIGMOIDOSCOPY 12/31/2007 VIRTUAL COLONOSCOPY 12/31/2007 PNEUMOCOCCAL VACCINES (50+ years) (1 of 1 - PCV) 2012 ZOSTER VACCINES (1 of 2) 2012 PAP SMEAR 08/29/2020 08/29/2017, 08/29/2017 INFLUENZA VACCINE (#1) 2025 0, 05/03/2018, 06/18/2017, Additional history exists COVID-19 VACCINE (3 - 2024- season) 2025 10/15/2020, 09/24/2020 RSV VACCINE (1 - 1-dose 75+ series) 2037 SMOKING STATUS SCREENING (Once After 26 Yrs) Completed 12/18/2017 HEPATITIS A VACCINES Aged Out No long er eligible based on patient's age to complete this topic HIB VACCINES Aged Out No longer eligi ble based on patient's age to complete this topic MENINGOCOCCAL VACCINES (ACWY) Aged Out No longer eligible based on patient's age to complete this topic MENINGOCOCCAL VACCINES (B) Aged Out N o longer eligible based on patient's age to complete this topic Medical Devices Not on file Procedures Procedure Name Priority Date/Time Associated Diagnosis Comments PAP TEST Routine 08/29/2017 12:00 AM EST from Last 3 Months or Most Recently Relevant to Health Maintenance Results * Pap Smear (08/29/2017 12:00 AM EST) 08/29/2017 08/30/2017 1:4 4 PM EST Narrative SEE NARRATIVE - 09/05/2017 2:44 [place] [address] Hairspring Staker: Zeina Nielsen MD 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 PAP SMEAR (SUREPATH) C: SPECIMEN ADEQUACY: Satisfactory for evaluation; transformation zone present. INTERPRETATION: NEGATIVE FOR INTRAEPITHELIAL LESION OR MALIGNANCY. Endometrial cells after age 45, particularly out of phase or after menopause, may be associated with benign endometrium, hormonal alterations, and, less commonly, endometrial/uterine abnormalities. Clinical correlation is recommended. Electronically Signed Out By: Braeden Rudolph By his/her signature above, the pathologist listed as making the Final Diagnosis certifies that he/she has personally reviewed this case and confirmed or corrected the diagnosis. The Pap test is a screening test primarily for squamous cancers and precursors and has associated false-negative and false-positive results. New technologies such as liquid-based preparations may decrease but will not eliminate all false-negative results. Regular sampling and follow-up of unexplained clinical signs and symptoms are recommended to minimize false negative results. PROCEDURES/ADDENDA HPV Testing (Requested) Ordered Date: 08/30/2017 HPV Test Negative for high risk human papillomavirus types 16, 18 and the Other high risk probe set (Includes 31, 33, 35, 39, 45, 51, 52, 56, 58, 59, 66, 68) by Emma cobase 4800 HR-HPV analysis. Clinical correlation is advised. This HPV test was performed at [facility], [address] [place] [address]. The accuracy and precision of this test has been verified in the Cytopathology laboratory of the [facility]. This test has not been cleared or approved by the U.S. Food and Drug Administration (FDA). CLINICAL HISTORY Date of Last Menstrual Period: Not Provided Menstrual History: Unknown Bleeding, PM Other Clinical Conditions: Screening Pap SPECIMEN SOURCE A: PAP SMEAR (SUREPATH) C Patient Name: JUICE WALKER : 1960 (Age: 56) Sex: F Institution: [facility] Location: [facility] Date of Collection: 08/29/2017 Date of Reported: 09/05/2017 14:44 Results to: Manuel Patel MD, BS Manuel Patel MD CYTOLOGY ORDERABLES Final Resul t SEE NARRATIVE from Last 3 Months or Most Recently Relevant to Health Maintenance Insurance CIGNA CARELINK PPO irisnoteNA CARELINK PPO CIGNA CARELINK PPO CIGNA CARELINK PPO CIGNA CARELINK PPO CIGNA CARELINK PPO CIGNA CARELINK PPO CIGNA CARELINK PPO CIGNA CARELINK PPO Care Teams Costume Technician Relationship Specialty Start Date End Date Maria C Colón DO [address] [place] [id number] PCP - General Internal Medicine 08/29/17 Additional Source Comments The information contained in this document represents components of the legal health record. It is not the complete legal health record.[facility]
== END 2025-07-04 09:58 | disposition home or self-care (01) ==
LOC: HO.HMCSH 09:26
PROVIDERS: PCP Physician Assistant Medical; Visit Provider Internal Medicine
DX: M17.12 Unilateral primary osteoarthritis, left knee (principal)

== ENCOUNTER → 2025-07-04 09:26 | Outpatient (BNVA) | payer OTHER, SELFPAY | PROVIDERS: PCP Physician Assistant Medical; Visit Provider Internal Medicine | DX: E11.9 Type 2 diabetes mellitus without complications (principal); M17.12 Unilateral primary osteoarthritis, left knee; Z13.30 Encounter for screening examination for mental health and behavioral disorders, unspecified | CPT/HCPCS: 99212 ==

== ENCOUNTER 2025-08-15 08:25 | Outpatient (REF) | payer OTHER, SELFPAY ==
--- NOTE | ~2025-08-15 | US_ITS ---
CLINICAL HISTORY: Z87.442 - Personal history of urinary calculi US of kidneys Comparison: US/SR - US KIDNEY BILATERAL - 10/07/24 11:10 EST Findings: Right kidney is normal in size, echogenicity and morphology, 12.8 cm in length. No calculus, mass or hydronephrosis. Left kidney is normal in size, echogenicity and morphology, 10.4 cm in length. No calculus, mass or hydronephrosis. Limited color Doppler demonstrates unremarkable bilateral blood flow. Impression: Normal renal ultrasound. This document has been electronically signed by: Irene Calvillo MD on 08/15/2025 14:37:12
--- OUTSIDE RECORDS SUMMARY | 2025-08-15 08:31 | XMS_ITS | Data Portability ---
Author Organization [facility] [id number] Address [address] [place] [address] Care Team Providers Care Cmm Programmer Name Role Phone MARIA C ACHARYA Primary Care Provider Assessment No assessment recorded. Plan of Treatment Reminders Order Date Submit Date Provider Last Modified By Organization Details Last Modified Time Details Appointments None recorded. Lab None recorded. Referral excelsior cutter referral 2022 023 [email or web address] Not available 3 08:08:10 Procedures None recorded. Surgeries None recorded. Imaging None recorded. Medication Orders None recorded. Patient TargetsNo targets recorded. 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 Medical Equipment None Reported. Allergies Allergen ID Allergen Name Allergen Category Reaction Reaction Severity Criticality Documentation Date Start Date Code Code System Note Provider Name and Address Organization Details Recorded Time 287791 Substance with sulfonami de structure and antibacte rial mechanism of action (substanc e) medicatio n Not available Not available Not available 05/04/2023 67572 8003 SNOMED OLGA Uribe - [facility] [...] Reported Respiratory rate Body temperature Oxygen saturation Heart rate Systolic And Diastolic Provider Name and Address Organization Details Last Updated DateTime 3 723788. 94 g 43.6 kg/m2 167.64 cm 4 20 /min 97.8 [degF] 97 % 80 /min 134/89 mm[Hg] Hallie [place] PA - [facility] 3 10:10:00 Social History Question Answer Notes LastModified by Breeze Details LastModified Time Tobacco Smoking Status Never Smoker Hallie cai PA Alyce [facility] 05/04/2023 10:08:45 Have You Had Direct Contact, Or Contact During Intimacy, With Monkeypox Rash, Scabs, Or Body Fluids From A Person With Monkeypox? No Information not available 05/04/2023 Have You Recently Traveled Abroad? No Information not available 05/04/2023 Sex: Unknown Functional Status Question Answer Note LastModified by Breeze Details LastModified Time Do you use any [...] split virus, quadrivalent, preservative 6 completed Hallie [place] null, [place] - [facility] 05/04/2023 10:07:26 Influenza, split virus, quadrivalent, preservative 7 completed Hallie Jenna null, PA - [facility] 05/04/2023 10:07:26 Influenza, MDCK, quadrivalent, PF 2 completed Hallie Jenna null, PA - [facility] 05/04/2023 10:07:26 COVID-19, mRNA, LNP-S, PF, 30 mcg/0.3 mL dose 1 completed Hallie [place] null, [place] - [facility] 05/04/2023 10:07:26 COVID-19, mRNA, LNP-S, PF, 30 mcg/0.3 mL dose 1 completed Hallie Jenna null, PA - [facility] 05/04/2023 10:07:26 COVID-19, mRNA, LNP-S, PF, 30 mcg/0.3 mL dose 1 completed Hallie [place] null, [place] - [facility] 05/04/2023 10:07:26 COVID-19, mRNA, LNP-S, PF, 30 mcg/0.3 mL dose, arlen-sucrose 2 completed Hallie [place] null, [place] - [facility] 05/04/2023 10:07:26 COVID-19, mRNA, LNP-S, bivalent, PF, 30 mcg/0.3 mL dose 2 completed Hallie [place] null, [place] - [facility] 05/04/2023 10:07:26 pneumococcal polysaccharide PPV23 1 completed Hallie [place] null, [place] - [facility] 05/04/2023 10:07:26 Influenza, split virus, trivalent, preservative 0 completed Hallie Jenna null, PA - [facility] 05/04/2023 10:07:26 Influenza, split virus, trivalent, preservative 4 completed Hallie [place] null, [place] - [facility] 05/04/2023 10:07:26 Influenza, split virus, quadrivalent, PF 8 completed Hallie Jenna null, PA - [facility] 05/04/2023 10:07:26 Influenza, split virus, quadrivalent, PF 0 completed Hallie Jenna null, PA - [facility] 05/04/2023 10:07:26 Influenza, split virus, quadrivalent, PF 1 completed Hallie [place] null, [place] - [facility] 05/04/2023 10:07:26 Past Encounters Encounter ID Performer Location Encounter Start Date Encounter Closed Date Diagnosis/Indication Diagnosis SNOMED-CT Code Diagnosis ICD10 Code Diagnosis IMO Codes Diagnosis Note [id number] [facility] [address] [place] [address] 09/04/2018 08:28:53 09/04/2018 09:15:19 [id number] [facility] [address] [place] [address] 11/08/2017 14:51:45 11/08/2017 15:52:09 [id number] Ron Huang, [address] [address] [place] [address] 05/04/2023 09:47:30 05/04/2023 10:26:26 Pain of toe of right foot [id number] 86267 M79.674 partial toenail avulsionre commend epsom salt [...] ID Carreon Member ID Guarantor Name 05/04/2023 1 [facility] [id number] uLciana Walker [id number] Luciana Fullerard 05/04/2023 1 [id number] (PPO) Luciana Elizalde Denise [id number] Luciana A Denise Notes Date Note Type Note Provider Name and Address Organization Details Recorded Time 05/04/2023 text/html ToesReported by Urafluv40 yo female c/o R toe painbanged toe under dressed and ripped toenail partially off+ bleedingminimal swelling+ pain - no pain with ambulation only when touching itno bruisingno redness ROS as noted in the HPI Ron Huang DO [address] [place], [address], [place] - [facility] 05/04/2023 10:28:24 OBGyn Episode No OBEpisode recorded.
--- OUTSIDE RECORDS SUMMARY | 2025-08-15 08:32 | XMS_ITS | Continuity of Care Document ---
Author Organization [facility] Address [address] [place] [address] Phone [phone] Social History Type Date Description Comments Sex Female Sex Unknown Medications Active Medications SIG Qnty Indications Ordering Provider Date Metformin HCL [id number] Tablets ER 24HR Take 1 Tablet By Mouth Twice A Day 180tabs Devaughn Gandhi M.D. 06/18/2022 Medical Devices Description No Information Available Encounters Description No Information Available Assessments Description No Information Available Plan of Treatment No Information Available Functional Status Description No Information Available Mental Status Description No Information Available Referrals Description No Information Available
--- OUTSIDE RECORDS SUMMARY | 2025-08-15 08:32 | XMS_ITS | Encounter Summary ---
Author Organization [facility] Address [address] [place] [address] Phone Care Team Providers Care Service Vehicle Operator Name Role Phone Kvng Colón DO Primary Care Provider Encounter Details Date Type Department Care Team (Late st Contact Info) Description 12/18/2017 Procedure Pass OR Admitting Dept - Virtual Department [address] [place] [address] Social History Tobacco Use Types Packs/Day Years [...] on filedocumented in this encounter Care Teams Service Vehicle Operator Relationship Specialty Start Date End Date Kvng Colón DO [address] [place] [address] PCP - General Internal Medicine 08/29/17 documented as of this encounter Additional Source Comments The information contained in this document represents components of the legal health record. It is not the complete legal health record.[facility]
--- OUTSIDE RECORDS SUMMARY | 2025-08-15 08:32 | XMS_ITS | Clinical Summary ---
Author Organization [facility] Address [address] [place] [address] Phone Care Team Providers Care Business Process Consultant Name Role Phone Maria C Colón Primary [...] SEE NARRATIVE - 09/05/2017 2:44 [place] [address] Web Merchant: Zeina Nielsen MD SAP TECHNICAL DEVELOPER Cytology Report FINAL DIAGNOSIS A. PAP SMEAR [...] advised. This HPV test was performed at [facility], [address] [place] [address]. The accuracy and precision of this test has been verified in the Cytopathology laboratory of the [facility]. This test has not been cleared or approved by the U.S. Food and Drug Administration (FDA). CLINICAL HISTORY Date of Last Menstrual Period: Not Provided Menstrual History: Unknown Bleeding, PM Other Clinical Conditions: Screening Pap SPECIMEN SOURCE A: PAP SMEAR (SUREPATH) C Patient Name: JUICE WALKER : 1960 (Age: 56) Sex: F Institution: [facility] Location: [facility] Date of Collection: 08/29/2017 Date of Reported: 09/05/2017 14:44 Results to: Manuel Patel MD, BS Manuel Patel MD CYTOLOGY ORDERABLES Final Resul t SEE NARRATIVE from Last 3 Months or Most Recently Relevant to Health Maintenance Insurance CIGNA CARELINK PPO [employer] CARELINK PPO CIGNA CARELINK PPO CIGNA CARELINK PPO CIGNA CARELINK PPO CIGNA CARELINK PPO CIGNA CARELINK PPO CIGNA CARELINK PPO CIGNA CARELINK PPO Care Teams Business Process Consultant Relationship Specialty Start Date End Date Maria C Colón DO [address] [place] [address] PCP - General Internal Medicine 08/29/17 Additional Source Comments The information contained in this document represents components of the legal health record. It is not the complete legal health record.[facility]
== END 2025-08-15 08:26 | disposition home or self-care (01) ==
LOC: HO.HMGCX 08:25
PROVIDERS: PCP Physician Assistant Medical; Visit Provider Urology
DX: R82.994 Hypercalciuria (principal); Z87.442 Personal history of urinary calculi
CPT/HCPCS: 76775

== ENCOUNTER → 2025-08-15 08:27 | Outpatient (BNV) | payer OTHER, SELFPAY | PROVIDERS: PCP Physician Assistant Medical; Visit Provider Radiology Diagnostic Radiology | DX: Z87.442 Personal history of urinary calculi (principal) | CPT/HCPCS: 76775 ==

== ENCOUNTER 2025-09-09 10:10 | Outpatient (AMB) | payer MEDICAID, SELFPAY ==
--- NOTE | 2025-09-09 10:37 | A.OFFVIS_ITS ---
Intake Visit Reasons: 1y/US/Kidney stones (set)UA) Intake Note: 64 year old female in today for a 1 year follow up on kidney stones Renal US done 08/15 last stone passed on January 09 Allergies Sulfa (Sulfonamide Antibiotics) Allergy (Unknown, Verified 07/04/25 09:29) HIVES HPI Comments Details: 09/09/2025 Latonia is here for follow-up is managed for history of nephrolithiasis. She renal ultrasound done on 08/15/25. No recurrent renal stones noted. 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 Reviewed renal US 10/07/24--negative kidney stones, KUB 10/09/24- within normal limits. Luciana states that she was seen by Nephrology and was counseled on changing from animal protein 2 plant protein as well as medication was changed from Lasix to hydrochlorothiazide p.r.n. she will be repeating the 24 hour urine in 7 weeks. Plan to monitor kidneys follow-up in 1 year with renal ultrasound. 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 She states she had been doing well until over the [place] holidays she experienced right- sided pain nausea vomiting. She was seen at [facility] emergency room they did a CT which noted a 5 mm proximal ureteral stone with some hydronephrosis. She denies fever. She denies dysuria. I have reviewed consult notes. We will check a renal ultrasound and KUB. The patient had mild hypercalciuria on past 24 hour urine I will refer her to Nephrology. 03/05/2024--I reviewed that the renal ultrasound 02/27/2024 was within normal limits right hydronephrosis is resolved. Discussed 24 hour urine results: Total volume 2.02 mL, Calcium 239 mg (eleveted); Oxalate 33 mg, Sodium 297(elevated), Citrate 916 mg. Instructed on importance of fluid intake, Low oxalate diet, low sodium diet. Follow-up in 1 year renal ultrasound at that time. 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 Was in the ED on 12/04/23 with right flank and lower quadrant pain CT imaging mild right hydronephrosis with perinephric stranding into proximal ureteral stones She was given Flomax She states she recently had right knee surgery October 31 she did have a lot of nausea and vomiting after the procedure. She states that she passed both stones she did see them in the toilet, when she was able to retrieve and describes it as a black hard pebble like. Plan metabolic workup, 24 urine collection will check renal ultrasound. To re--evaluate right kidney, to confirm resolution of perinephric stranding and hydronephrosis. Urinalysis 2+ leukocytes will check surveillance urine culture [facility] Medical History Osteoarthritis of right knee Unilateral primary osteoarthritis, left knee Diabetes Obesity GERD (gastroesophageal reflux disease) HTN (hypertension) Obstructive sleep apnea Depression Surgical History History of colonoscopy (06/06/25) H/O right knee surgery (~10/2023) H/O left knee surgery History of cholecystectomy Family History Father No problems noted. Mother No problems noted. 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 Cognitive needs: No Hearing needs: No Vision needs: No Results AMB Urinalysis, Automated UA Leukoctes 70 Emmett/uL Last Edit by TATIANA Murillo on 09/09/25 11:05 UA Nitrite Negative Last Edit by TATIANA Murillo on 09/09/25 11:05 UA Urobilinogen 0.2 mg/dL Last Edit by TATIANA Murillo on 09/09/25 11:0 5 UA Protein 15 mg/dL Last Edit by TATIANA Murillo on 09/09/25 11:05 UA pH 6.0 Last Edit by TATIANA Murillo on 09/09/25 11:05 UA Blood 0 Dagoberto/uL Last Edit by TATIANA Murillo on 09/09/25 11:05 UA Specific [place] 1.025 Last Edit by Huong Apple, RMA on 09/09/25 11: 05 UA Ketone Negative Last Edit by Huong Apple, RMA on 09/09/25 11:05 UA Bilirubin 1 mg/dL Last Edit by Huong Apple, RMA on 09/09/25 11:05 UA Glucose 0 mg/dL Last Edit by Huong Apple, RMA on 09/09/25 11:05 Results Reviewed Results Reviewed: Laboratory Last Values Urine pH (Auto) 6.0 09/09/25 11:02 Specific [place] (Auto) 1.025 09/09/25 11:02 Urine Protein (Auto) 15 mg/dL 09/09/25 11:02 Glucose (UA)(Auto) 0 mg/dL 09/09/25 11:02 Urine Ketones (Auto) Negative 09/09/25 11:02 Urine Blood (Auto) 0 Dagoberto/uL 09/09/25 11:02 Urine Nitrite (Auto) Negative 09/09/25 11:02 Urine Bilirubin (Auto) 1 mg/dL 09/09/25 11:02 Urine Urobilinogen (Auto) 0.2 mg/dL 09/09/25 11:02 Leukocyte Esterase (Auto) 70 Emmett/uL 09/09/25 11:02 Assessment & Plan Assessment & Plan Orders: Orders AMB Urinalysis Automated Today Z13.9 - Encounter for screening, unspecified Coding
--- OUTSIDE RECORDS SUMMARY | 2025-09-09 11:28 | XMS_ITS | Data Portability ---
Author Organization [facility] [id number] Address [address] [place] [address] Care Team Providers Care Manager Technical Name Role Phone MARIA C ACHARYA Primary Care Provider Assessment No assessment recorded. Plan of Treatment Reminders Order Date Submit Date Provider Last Modified By Organization Details Last Modified Time Details Appointments None recorded. Lab None recorded. Referral gas appliance installer referral 2022 023 [email or web address] Not available 3 08:08:10 Procedures None recorded. Surgeries None recorded. Imaging None recorded. Medication Orders None recorded. Patient TargetsNo targets recorded. 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 Medical Equipment None Reported. Allergies Allergen ID Allergen Name Allergen Category Reaction Reaction Severity Criticality Documentation Date Start Date Code Code System Note Provider Name and Address Organization Details Recorded Time [id number] Substance with sulfonami de structure and antibacte rial mechanism of action (substanc e) medicatio n Not available Not available Not available 05/04/2023 [id number] SNOMED OLGA Uribe - [facility] [...] Address Organization Details Last Updated DateTime 3 743468. 94 g 43.6 kg/m2 167.64 cm 4 20 /min 97.8 [degF] 97 % 80 /min 134/89 mm[Hg] Hallie West PA - [facility] 3 10:10:00 Social History Question Answer Notes LastModified by [employer] Details LastModified Time Tobacco Smoking Status Never Smoker Hallie cai PA Alyce [facility] 05/04/2023 10:08:45 Have You Had Direct Contact, Or Contact During Intimacy, With Monkeypox Rash, Scabs, Or Body Fluids From A Person With Monkeypox? No Information not available 05/04/2023 Have You Recently Traveled Abroad? No Information not available 05/04/2023 Sex: Unknown Functional Status Question Answer Note LastModified by [employer] Details LastModified Time Do you use any [...] split virus, quadrivalent, preservative 6 completed Hallie Hiram null, PA - [facility] 05/04/2023 10:07:26 Influenza, split virus, quadrivalent, preservative 7 completed Hallie Jenna null, PA - [facility] 05/04/2023 10:07:26 Influenza, MDCK, quadrivalent, PF 2 completed Hallie Jenna null, PA - [facility] 05/04/2023 10:07:26 COVID-19, mRNA, LNP-S, PF, 30 mcg/0.3 mL dose 1 completed Hallie Hiram null, PA - [facility] 05/04/2023 10:07:26 COVID-19, mRNA, LNP-S, PF, 30 mcg/0.3 mL dose 1 completed Hallie Jenna null, PA - [facility] 05/04/2023 10:07:26 COVID-19, mRNA, LNP-S, PF, 30 mcg/0.3 mL dose 1 completed Hallie Hiram null, PA - [facility] 05/04/2023 10:07:26 COVID-19, mRNA, LNP-S, PF, 30 mcg/0.3 mL dose, arlen-sucrose 2 completed Hallie Hiram null, PA - [facility] 05/04/2023 10:07:26 COVID-19, mRNA, LNP-S, bivalent, PF, 30 mcg/0.3 mL dose 2 completed Hallie Hiram null, PA - [facility] 05/04/2023 10:07:26 pneumococcal polysaccharide PPV23 1 completed Hallie Hiram null, PA - [facility] 05/04/2023 10:07:26 Influenza, split virus, trivalent, preservative 0 completed Hallie Jenna null, PA - [facility] 05/04/2023 10:07:26 Influenza, split virus, trivalent, preservative 4 completed Hallie Hiram null, PA - [facility] 05/04/2023 10:07:26 Influenza, split virus, quadrivalent, PF 8 completed Hallie Jenna null, PA - [facility] 05/04/2023 10:07:26 Influenza, split virus, quadrivalent, PF 0 completed Hallie Jenna null, PA - [facility] 05/04/2023 10:07:26 Influenza, split virus, quadrivalent, PF 1 completed Hallie Hiram null, PA - [facility] 05/04/2023 10:07:26 Past Encounters Encounter ID Performer Location Encounter Start Date Encounter Closed Date Diagnosis/Indication Diagnosis SNOMED-CT Code Diagnosis ICD10 Code Diagnosis IMO Codes Diagnosis Note [id number] [address] [place] [address] 09/04/2018 08:28:53 09/04/2018 09:15:19 [id number] [facility] [place] [address] 11/08/2017 14:51:45 11/08/2017 15:52:09 [id number] Ron Huang, [address] [address] [place] [address] 05/04/2023 09:47:30 05/04/2023 10:26:26 Pain of toe of right foot [id number] 03607 M79.674 partial toenail avulsionre commend epsom salt [...] Carreon Member ID Guarantor Name 05/04/2023 1 [facility] [id number] Luciana Walker [id number] Luciana Fullerard 05/04/2023 1 [id number] (PPO) Luciana Elizalde Denise [id number] Luciana A Denise Notes Date Note Type Note Provider Name and Address Organization Details Recorded Time 05/04/2023 text/html ToesReported by [email or web address] yo female c/o R toe painbanged toe under dressed and ripped toenail partially off+ bleedingminimal swelling+ pain - no pain with ambulation only when touching itno bruisingno redness ROS as noted in the HPI Ron Huang DO [address] [place], [address], [place] - [facility] 05/04/2023 10:28:24 OBGyn Episode No OBEpisode recorded.
== END 2025-09-09 11:32 | disposition home or self-care (01) ==
PROVIDERS: PCP Internal Medicine; Visit Provider Urology
DX: Z13.9 Encounter for screening, unspecified (principal)